=== PATIENT | male | born 1960 | race American Indian/Alaskan Native ===

== ENCOUNTER → 2018-11-13 | Outpatient (CLI) | payer MEDICARE, OTHER ==
--- NOTE | 2018-11-13 15:53 | US ---
EXAMINATION TYPE: US kidneys/renal and bladder DATE OF EXAM: 11/13/2018 COMPARISON: NONE CLINICAL HISTORY: N39.41 Urge incontinence N31.9 Neuromuscular.... pt wheelchair bound and scanned in wheelchair pt self catheterizes for voiding bladder EXAM MEASUREMENTS: Right Kidney: 10.4 x 4.5 x 5.0 cm Left Kidney: 10.9 x 4.7 x 4.3 cm Post Void Residual Volume: 0.6 mL Right Kidney: wnl Left Kidney: wnl Bladder: wnl Bilateral Jets seen: Yes Normal Post Void Residual: Yes pt self catheterizes for voiding bladder pt is in wheelchair There is no evidence for hydronephrosis at this point in time. No nephrolithiasis is seen. No elana s are identified. The urinary bladder is anechoic. Bilateral ureteral jets are seen. IMPRESSION: The urinary bladder completely empties after catheterization with no abnormal post void r esidual. No hydronephrosis of either kidney.
== END | disposition home or self-care (01) ==
LOC: RADUSWWP 14:56
PROVIDERS: ATTEND Urology
DX: N39.44 Nocturnal enuresis (principal)
CPT/HCPCS: 76770

== ENCOUNTER → 2020-01-06 | Outpatient (CLI) | payer MEDICARE, OTHER | END | disposition home or self-care (01) | LOC: RADUSWWP 12:04 | PROVIDERS: ATTEND Nurse Practitioner Family | DX: R22.41 Localized swelling, mass and lump, right lower limb (principal) | CPT/HCPCS: 93922 ==

== ENCOUNTER → 2020-04-05 | Outpatient (CLI) | payer MEDICARE, OTHER ==
--- NOTE | 2020-04-06 09:01 | CT ---
EXAMINATION TYPE: CT angio abd aorta w/Runoff DATE OF EXAM: 04/05/2020 COMPARISON: None HISTORY: Occlusion. Concern for right leg. CT DLP: 1055.3 mGycm CONTRAST: CTA thoracic and abdominal aorta with 3-D reconstruction is performed and with IV Contrast, patient i njected with 125 mL of Isovue 370. Contrast CTA of the abdominal aorta with runoff of the lower extremity arterial system was performed from the lung bases through the right ankle and foot and through the patient's left-sided above the k nee amputation stump. 3-D reconstruction imaging obtained at a separate workstation. ABDOMINAL AORTA: There is nonaneurysmal atheromatous change of the abdominal aorta. No evidence for s tenosis. Branch vessels including the SMA, celiac, renals and ANNEMARIE are patent. Iliac vessels: There is multifocal disease involving the bilateral common iliac arteries with stenosis of approximat steph 50%. The right external iliac artery also demonstrates diffuse multifocal disease with stenosis estimated at greater than 70% at its mid and distal portions. The right internal iliac artery is hicks nt. The left external iliac artery also demonstrates multifocal disease with near complete stenosis d istally at its junction with the left common femoral artery. Left internal iliac artery is patent. Re constitution is noted via the inferior epigastric arteries. Femoral arteries: Right common femoral and superficial femoral arteries demonstrate multifocal diseas e. There is high-grade stenosis involving the right common femoral artery just proximal to the profun da femoris artery. There is occlusion of the distal superficial femoral artery on the right just prox imal to the popliteal artery with arterial collaterals noted reconstituting arteries below the knee. There is severe multifocal disease involving the left common femoral artery and the visualized portio ns of the left superficial femoral artery up to the level of the [id number] amputation stump. Popliteal arteries: There is occlusion of the right popliteal artery. Below the knee arteries: The below the knee arteries including the peroneal as well as anterior poste rior tibial arteries are patent proximally. There is limited runoff distally. LIVER/GB- No significant abnormality is seen. PANCREAS- No significant abnormality is seen. SPLEEN- No significant abnormality is seen. ADRENALS- No significant abnormality is seen. KIDNEYS/BLADDER- No significant abnormality is seen. BOWEL- No Significant abnormality GENITAL ORGANS: No gross abnormality seen. LYMPH NODES- No greater than 1cm abdominal or pelvic lymph nodes are appreciated. OSSEOUS STRUCTURES- No significant abnormality is seen. OTHER- No significant abnormality is seen. IMPRESSION- 1. Hemodynamically significant stenosis involving the bilateral external iliac arteries with near com plete occlusion of the left external iliac artery. 2. Occlusion distal SFA with collateral reconstitution below the knee. 3. Severe multifocal disease involving the left common femoral artery and left superficial femoral ar alex up to the level of the patient's above the knee amputation stump.
== END | disposition home or self-care (01) ==
LOC: RADCTMAIN 13:28
PROVIDERS: ATTEND Surgery
DX: I74.5 Embolism and thrombosis of iliac artery (principal); I70.209 Unspecified atherosclerosis of native arteries of extremities, unspecified extremity; I77.89 Other specified disorders of arteries and arterioles; Z89.611 Acquired absence of right leg above knee
CPT/HCPCS: 75635; Q9967

== ENCOUNTER 2020-05-05 11:52 | Inpatient (IN) | payer MEDICARE, OTHER ==
[2020-05-05 13:57] LABS: Partial Thromboplastin Time 25.5 sec (22.0-30.0); Prothrombin Time 10.8 sec (9.0-12.0)
[2020-05-05 13:58] LABS: Appearance,Urine Cloudy (Clear); Bacteria,Urine Rare /hpf; Bilirubin,Urine 1+ (Negative); Blood,Urine Moderate (Negative); Color,Urine Yellow; Glucose,Urine (UA) Negative (Negative); Hyaline Casts,Urine 92 /lpf (0-2); Ketones,Urine Negative (Negative); Leukocyte Esterase,Urine Negative (Negative); Mucus,Urine Many /hpf; Nitrite,Urine Negative (Negative); Protein,Urine 1+ (Negative); RBC,Urine 36 /hpf (0-5); Specific Gravity,Urine 1.026 (1.001-1.035); Sperm,Urine Occasional /hpf; Squamous Epithelial Cell,Urine 3 /hpf (0-4); WBC,Urine 3 /hpf (0-5)
[2020-05-05 14:01] LABS: Albumin 3.6 g/dL (3.5-5.0); Calcium 8.5 mg/dL (8.4-10.2); Potassium 3.7 mmol/L (3.5-5.1); Total Bilirubin 0.8 mg/dL (0.2-1.3); Total Protein 7.3 g/dL (6.3-8.2)
[2020-05-05 14:02] LABS: Basophils % (A) 0 %; Eosinophils # (A) 0.1 k/uL (0-0.7); Eosinophils % (A) 1 %; HCT 36.5 % (39.0-53.0); HGB 11.9 gm/dL (13.0-17.5); Lymphocytes # (A) 1.3 k/uL (1.0-4.8); Lymphocytes % (A) 9 %; MCH 30.5 pg (25.0-35.0); MCHC 32.7 g/dL (31.0-37.0); MCV 93.5 fL (80.0-100.0); Mean Platelet Volume 8.6; Monocytes # (A) 0.5 k/uL (0-1.0); Monocytes % (A) 4 %; Neutrophils # (A) 12.7 k/uL (1.3-7.7); Neutrophils % (A) 86 %; Platelet Count 361 k/uL (150-450); RDW 13.8 % (11.5-15.5); WBC 14.8 k/uL (3.8-10.6)
--- NOTE | 2020-05-05 14:16 | XR ---
EXAMINATION TYPE: XR knee complete RT DATE OF EXAM: 05/05/2020 COMPARISON: NONE HISTORY: Pain TECHNIQUE: Three views are submitted. FINDINGS: There is a displaced intra-articular fracture extending from the tibial plateau into the diaphysis of the tibia. There is a displaced fracture of the fibular head. Severe diffuse osteopenia noted. Vascu lar calcifications noted. A large lipohemarthrosis of the suprapatellar bursa noted. Arthropathy of t he patellofemoral joint. IMPRESSION: 1. Intra-articular displaced fracture of the proximal tibia extending from the tibial plateau into th e proximal diaphysis. 2. Displaced fibular head fracture.
[2020-05-05 14:30] LABS: C Reactive Protein 309.3 mg/L (<10.0)
[2020-05-05] MEDS ORDERED: AMPICILLIN-SULBACTAM 3 GM in SODIUM CHLORIDE 0.9% 100 ML IVPB STA (14:30)
[2020-05-05] MEDS ORDERED: SODIUM CHLORIDE 0.9% 1,000 ML IV ONE (14:30)
[2020-05-05] MEDS ORDERED: VANCOMYCIN IV PER PHARMACY 1 EACH MISC MISCELLANE PRN (14:31)
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
[2020-05-05] MEDS ORDERED: VANCOMYCIN 1,500 MG in SODIUM CHLORIDE 0.9% 250 ML IVPB ONE (14:45)
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
[2020-05-05 14:58] LABS: Erythrocyte Sedimentation Rate 104 mm/hr (0-15)
[2020-05-05] MEDS ORDERED: NALOXONE 0.4 MG/ML 1 ML VIAL IV PRN (15:09)
[2020-05-05] MEDS: SODIUM CHLORIDE 0.9% 1,000 ML IV SCH (16:51)
[2020-05-05] MEDS: HYDROcodone/APAP 10-325MG 1 EACH TAB PO PRN (18:22)
[2020-05-05] MEDS: BACLOFEN 10 MG TAB PO SCH ×2 (18:23→21:55)
[2020-05-05] MEDS: diazePAM 5 MG TAB PO SCH ×2 (18:23→21:55)
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
--- NOTE | 2020-05-05 19:15 | P.PCN ---
Date of Procedure: 05/05/20 Procedure(s) Performed: PREOPERATIVE DIAGNOSIS: Right gluteal decubitus ulcer POSTOPERATIVE DIAGNOSIS: Same PROCEDURE: Debridement right gluteal decubitus ulcer SURGEON: Merlin EBL: 5 mL ANESTHESIA: Topical Hurricaine COMPLICATIONS: None OPERATIVE PROCEDURE: Patient kept in the room for the procedure. He was placed in the left decubitus position. The right gluteal wound was debrided in an excisional manner sharply with a scalpel. Both subcutaneous fat and muscle was debrided. Some of the fascia overlying the friable bone was also debrided. Wound size did not change significantly. Remains 4 x 4 centimeters. Wound packed with sterile 4 x 4. DISPOSITION: Stable
[2020-05-05] MEDS: METOPROLOL TARTRATE 25 MG TAB PO SCH (21:55)
[2020-05-05] MEDS: tiZANidine 4 MG TAB PO SCH (22:18)
[2020-05-06] MEDS: SODIUM CHLORIDE 0.9% 1,000 ML IV SCH ×2 (04:25→11:41)
[2020-05-06 08:43] LABS: Basophils # (A) 0.1 k/uL (0-0.2); Basophils % (A) 1 %; Eosinophils # (A) 0.2 k/uL (0-0.7); Eosinophils % (A) 2 %; HCT 34.3 % (39.0-53.0); HGB 10.9 gm/dL (13.0-17.5); Lymphocytes # (A) 1.1 k/uL (1.0-4.8); Lymphocytes % (A) 9 %; MCH 30.6 pg (25.0-35.0); MCHC 31.7 g/dL (31.0-37.0); MCV 96.5 fL (80.0-100.0); Mean Platelet Volume 8.1; Monocytes # (A) 0.4 k/uL (0-1.0); Monocytes % (A) 4 %; Neutrophils % (A) 84 %; Platelet Count 311 k/uL (150-450); RBC 3.55 m/uL (4.30-5.90); WBC 11.8 k/uL (3.8-10.6)
[2020-05-06] MEDS ORDERED: VANCOMYCIN 1,500 MG in SODIUM CHLORIDE 0.9% 250 ML IVPB SCH (09:00)
[2020-05-06] MEDS ORDERED: ERGOCALCIFEROL 1,250 MCG (50,000 IU) CAPSULE PO SCH (09:00)
[2020-05-06] MEDS: ASPIRIN 81 MG PO SCH (09:22)
[2020-05-06] MEDS: diazePAM 5 MG TAB PO SCH ×4 (09:23→21:22)
[2020-05-06] MEDS: tiZANidine 4 MG TAB PO SCH ×2 (09:23→21:23)
[2020-05-06] MEDS: ATORVASTATIN 40 MG TAB PO SCH (09:25)
[2020-05-06] MEDS: HYDROcodone/APAP 10-325MG 1 EACH TAB PO PRN (09:30)
[2020-05-06] MEDS: AMPICILLIN-SULBACTAM 3 GM in SODIUM CHLORIDE 0.9% 100 ML IVPB SCH ×3 (09:31→23:36)
[2020-05-06] MEDS: METOPROLOL TARTRATE 25 MG TAB PO SCH ×2 (09:32→21:24)
[2020-05-06] MEDS: lisinopriL 10 MG TAB PO SCH (09:32)
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
[2020-05-06 11:41] LABS: Anion Gap 12.2 mmol/L (4.00-12.00); BUN/Creat Ratio 24.67 Ratio (12.00-20.00); Calcium 7.8 mg/dL (8.7-10.3); Carbon Dioxide 21.8 mmol/L (21.6-31.8); Non-African American GFR(CKD) 50.9 (60.0-200.0); Potassium 3.8 mmol/L (3.5-5.5)
[2020-05-06] MEDS: BACLOFEN 10 MG TAB PO SCH ×4 (11:44→21:24)
--- NOTE | 2020-05-06 12:47 | P.PN ---
<[email or web address] - Last Filed: 05/06/20 12:40> Subjective Progress Note Date: 05/06/20 CHIEF COMPLAINT: Right gluteal decubitus ulcer HISTORY OF PRESENT ILLNESS: Patient is status post debridement of right gluteal decubitus ulcer at bedside. Wound care nurse practitioner is following. Wound care service did recommend wound VAC and patient declined. Patient denies any pain. Patient did have a temp of 100.6 yesterday evening. Temperature currently 99.4. WBC has decreased from 14.8-11.8 PHYSICAL EXAM: VITAL SIGNS: Reviewed. GENERAL: Well-developed in no acute distress. HEENT: No sclera icterus. Extraocular movements grossly intact. Moist buccal mucosa. Head is atraumatic, normocephalic. ABDOMEN: Soft. Nondistended. Nontender. NEUROLOGIC: Alert and oriented. Cranial nerves II through XII grossly intact. Extremities: Right decubitus ulcer area around the ulcer shows no evidence of erythema. The ulcer has been debrided area is packed with gauze that is saturated with blood. Surrounding dressing is saturated with blood and being changed. ASSESSMENT: 1. Right gluteal decubitus ulcer status post debridement at bedside PLAN: -Continue wound care -Continue antibiotics -Continue supportive care Physician Multifocal Lens Inspector note has been reviewed by physician. Signing provider agrees with the documented findings, assessment, and plan of care. Objective - Vital Signs Vital signs: Vital Signs Temp 99.4 F 05/06/20 01:11 Pulse 93 05/06/20 11:30 Resp 20 05/06/20 01:11 BP 107/57 05/06/20 11:30 Pulse Ox 96 05/06/20 01:11 Intake & Output 05/05/20 05/06/20 05/06/20 18:59 06:59 18:59 Intake Total 600 2750 Balance 600 2750 Weight 77.111 kg Intake: Intake, IV Titration 1200 Amount Sodium Chloride 0.9% 1, 1200 000 ml @ 100 mls/hr IV . Q10H ANA Rx#:[id number] Oral 600 1550 Other: Voiding Method Self-Catheterization # Voids 1 - Labs CBC & Chem 7: 05/06/20 08:07 05/06/20 08:07 Labs: Abnormal Lab Results - Last 24 Hours (Table) 05/05/20 05/05/20 05/05/20 Range/Units 13:34 13:34 13:34 WBC 14.8 H (3.8-10.6) k/uL RBC 3.90 L (4.30-5.90) m/uL Hgb 11.9 L (13.0-17.5) gm/dL Hct 36.5 L (39.0-53.0) % Neutrophils # 12.7 H (1.3-7.7) k/uL ESR 104 H (0-15) mm/hr Anion Gap (4.00-12.00) mmol/L BUN 32 H (9-20) mg/dL Creatinine 1.84 H (0.66-1.25) mg/dL Est GFR (CKD-EPI)AfAm (60.0-200.0) Est GFR (CKD-EPI)NonAf (60.0-200.0) BUN/Creatinine Ratio (12.00-20.00) Ratio Glucose 121 H (74-99) mg/dL Calcium (8.7-10.3) mg/dL C-Reactive Protein 309.3 H (<10.0) mg/L Urine Protein 1+ H (Negative) Urine Blood Moderate H (Negative) Urine Bilirubin 1+ H (Negative) Urine RBC 36 H (0-5) /hpf Urine Bacteria Rare H (None) /hpf Hyaline Casts 92 H (0-2) /lpf Urine Mucus Many H (None) /hpf Urine Sperm Occasional H (None) /hpf 05/06/20 05/06/20 Range/Units 08:07 08:07 WBC 11.8 H (3.8-10.6) k/uL RBC 3.55 L (4.30-5.90) m/uL Hgb 10.9 L (13.0-17.5) gm/dL Hct 34.3 L (39.0-53.0) % Neutrophils # 10.0 H (1.3-7.7) k/uL ESR (0-15) mm/hr Anion Gap 12.20 H (4.00-12.00) mmol/L BUN 37.0 H (9-20) mg/dL Creatinine (0.66-1.25) mg/dL Est GFR (CKD-EPI)AfAm 59.0 L (60.0-200.0) Est GFR (CKD-EPI)NonAf 50.9 L (60.0-200.0) BUN/Creatinine Ratio 24.67 H (12.00-20.00) Ratio Glucose 112 H (74-99) mg/dL Calcium 7.8 L (8.7-10.3) mg/dL C-Reactive Protein (<10.0) mg/L Urine Protein (Negative) Urine Blood (Negative) Urine Bilirubin (Negative) Urine RBC (0-5) /hpf Urine Bacteria (None) /hpf Hyaline Casts (0-2) /lpf Urine Mucus (None) /hpf Urine Sperm (None) /hpf <Matthew Boyer - Last Filed: 05/06/20 13:56> Subjective As above. Patient has no new complaints. White blood cell count is improved. He is afebrile. Continue local wound care. We'll follow. Objective - Vital Signs Vital signs: Vital Signs Temp 98.6 F 05/06/20 12:30 Pulse 92 05/06/20 12:36 Resp 14 05/06/20 12:36 BP 98/63 05/06/20 12:30 Pulse Ox 99 05/06/20 12:30 Intake & Output 05/05/20 05/06/20 05/06/20 18:59 06:59 18:59 Intake Total 600 2750 Balance 600 2750 Weight 77.111 kg 77.111 kg Intake: Intake, IV Titration 1200 Amount Sodium Chloride 0.9% 1, 1200 000 ml @ 100 mls/hr IV . Q10H ANA Rx#:[id number] Oral 600 1550 Other: Voiding Method Self-Catheterization Self-Catheterization # Voids 1 - Labs CBC & Chem 7: 05/06/20 08:07 05/06/20 08:07 Labs: Abnormal Lab Results - Last 24 Hours (Table) 05/05/20 05/05/20 05/05/20 Range/Units 13:34 13:34 13:34 WBC 14.8 H (3.8-10.6) k/uL RBC 3.90 L (4.30-5.90) m/uL Hgb 11.9 L (13.0-17.5) gm/dL Hct 36.5 L (39.0-53.0) % Neutrophils # 12.7 H (1.3-7.7) k/uL ESR 104 H (0-15) mm/hr Anion Gap (4.00-12.00) mmol/L BUN 32 H (9-20) mg/dL Creatinine 1.84 H (0.66-1.25) mg/dL Est GFR (CKD-EPI)AfAm (60.0-200.0) Est GFR (CKD-EPI)NonAf (60.0-200.0) BUN/Creatinine Ratio (12.00-20.00) Ratio Glucose 121 H (74-99) mg/dL Calcium (8.7-10.3) mg/dL C-Reactive Protein 309.3 H (<10.0) mg/L Urine Protein 1+ H (Negative) Urine Blood Moderate H (Negative) Urine Bilirubin 1+ H (Negative) Urine RBC 36 H (0-5) /hpf Urine Bacteria Rare H (None) /hpf Hyaline Casts 92 H (0-2) /lpf Urine Mucus Many H (None) /hpf Urine Sperm Occasional H (None) /hpf 05/06/20 05/06/20 Range/Units 08:07 08:07 WBC 11.8 H (3.8-10.6) k/uL RBC 3.55 L (4.30-5.90) m/uL Hgb 10.9 L (13.0-17.5) gm/dL Hct 34.3 L (39.0-53.0) % Neutrophils # 10.0 H (1.3-7.7) k/uL ESR (0-15) mm/hr Anion Gap 12.20 H (4.00-12.00) mmol/L BUN 37.0 H (9-20) mg/dL Creatinine (0.66-1.25) mg/dL Est GFR (CKD-EPI)AfAm 59.0 L (60.0-200.0) Est GFR (CKD-EPI)NonAf 50.9 L (60.0-200.0) BUN/Creatinine Ratio 24.67 H (12.00-20.00) Ratio Glucose 112 H (74-99) mg/dL Calcium 7.8 L (8.7-10.3) mg/dL C-Reactive Protein (<10.0) mg/L Urine Protein (Negative) Urine Blood (Negative) Urine Bilirubin (Negative) Urine RBC (0-5) /hpf Urine Bacteria (None) /hpf Hyaline Casts (0-2) /lpf Urine Mucus (None) /hpf Urine Sperm (None) /hpf Assessment and Plan (1) Wound of right buttock Current Visit: Yes Status: Acute Code(s): S31.819A - UNSPECIFIED OPEN WOUND OF RIGHT BUTTOCK, INITIAL ENCOUNTER SNOMED Code(s): 074540385
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
[2020-05-06 13:56] VITALS: BMI 21.8
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
[2020-05-07] MEDS: IBUPROFEN 600 MG TAB PO PRN (00:37)
[2020-05-07] MEDS: VANCOMYCIN 1,500 MG in SODIUM CHLORIDE 0.9% 250 ML IVPB SCH ×2 (00:38→16:50)
[2020-05-07] MEDS: SODIUM CHLORIDE 0.9% 1,000 ML IV SCH ×3 (00:38→20:52)
[2020-05-07 05:44] LABS: Glucose,Whole Blood 127 mg/dL (75-99)
[2020-05-07] MEDS: HYDROcodone/APAP 10-325MG 1 EACH TAB PO PRN ×2 (06:08→21:13)
[2020-05-07] MEDS: ASPIRIN 81 MG PO SCH (07:29)
[2020-05-07] MEDS: ATORVASTATIN 40 MG TAB PO SCH (07:29)
[2020-05-07] MEDS: AMPICILLIN-SULBACTAM 3 GM in SODIUM CHLORIDE 0.9% 100 ML IVPB SCH ×2 (07:30→15:47)
[2020-05-07] MEDS: diazePAM 5 MG TAB PO SCH ×5 (07:30→20:57)
[2020-05-07] MEDS: BACLOFEN 10 MG TAB PO SCH ×4 (07:30→21:01)
[2020-05-07] MEDS: METOPROLOL TARTRATE 25 MG TAB PO SCH ×2 (07:32→20:48)
[2020-05-07] MEDS: lisinopriL 10 MG TAB PO SCH (07:32)
[2020-05-07] MEDS: tiZANidine 4 MG TAB PO SCH ×2 (07:32→20:57)
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
--- NOTE | 2020-05-07 11:19 | P.PN ---
Subjective Progress Note Date: 05/07/20 Principal diagnosis: Buttock wound Patient had fevers last night 101.9. No new discomforts or symptoms however. No shortness of breath. Wound culture showing staph aureus. Objective - Vital Signs Vital signs: Vital Signs Temp 97.3 F L 05/07/20 05:25 Pulse 72 05/07/20 05:25 Resp 16 05/07/20 08:00 BP 101/64 05/07/20 05:25 Pulse Ox 98 05/07/20 05:25 Intake & Output 05/06/20 05/07/20 05/07/20 18:59 06:59 18:59 Intake Total 600 Output Total 600 Balance 600 -600 Weight 77.111 kg Intake: Oral 600 Output: Urine 600 Other: Voiding Method Self-Catheterization Self-Catheterization # Voids 3 1 1 - Exam Right gluteal wound clean, decreased volume of necrotic tissue noted, no erythema or significant drainage - Labs CBC & Chem 7: 05/06/20 08:07 05/06/20 08:07 Labs: Abnormal Lab Results - Last 24 Hours (Table) 05/06/20 05/07/20 Range/Units 08:07 05:39 Anion Gap 12.20 H (4.00-12.00) mmol/L BUN 37.0 H (9.0-27.0) mg/dL Est GFR (CKD-EPI)AfAm 59.0 L (60.0-200.0) Est GFR (CKD-EPI)NonAf 50.9 L (60.0-200.0) BUN/Creatinine Ratio 24.67 H (12.00-20.00) Ratio Glucose 112 H (70-110) mg/dL POC Glucose (mg/dL) 127 H (75-99) mg/dL Calcium 7.8 L (8.7-10.3) mg/dL Microbiology - Last 24 Hours (Table) 05/05/20 13:34 Blood Culture - Preliminary Blood No Growth after 24 hours Assessment and Plan (1) Wound of right buttock Narrative/Plan: Began Aquacel silver dressing changes to the buttock at this time. Continue offloading. Continue IV antibiotics. Current Visit: Yes Status: Acute Code(s): S31.819A - UNSPECIFIED OPEN WOUND OF RIGHT BUTTOCK, INITIAL ENCOUNTER SNOMED Code(s): 370294131
[2020-05-07 11:46] LABS: African American GFR (CKD) 85.9 (60.0-200.0); Non-African American GFR(CKD) 74.1 (60.0-200.0)
[2020-05-07] MEDS ORDERED: diphenhydrAMINE 25 MG CAP PO PRN (22:25)
--- NOTE | 2020-05-07 23:23 | P.PN ---
Subjective Records: Jaziel Taylor is a 59 yo M with PMH of paraplegia, previous history of sacral wound with flap reconstruction, who presented to the ED with worsening sacral wound. He states he is numb from his chest down, recently had a fall from his wheelchair where he landed on his sacrum and developed an injury/sacral wound. He also noted swelling of his R knee at that time. Pt states his sacral wound has drainged more and developed foul smell over the past week. On presentation vitals stable, WBC 14.8k, Cr 1.84, CRP 310. XR showing erosion of coccyx and fluid collection. 05/07/2020 Patient is awake and alert, he knows in the hospital and he notes [facility]. He is also oriented to time and person. He knows why the h ospital for his right ankle leg fracture after he fell from his wheelchair and also for his infected sacral pressure ulcer which he states that he had it for 5 years. His been paraplegic for many years, he was sensation from the middle chest down 11-13 years ago. Patient uses a wheelchair. He was a little bit sad for his infection and emotional support is provided for him and he feels much better. He denies depression or suicidal ideation. He had low-grade temperature yesterday of 100.7. Also leukocytosis of 11.8, creatinine is improving to 1.1. CT of the abdomen and pelvis showing suspicious of osteomyelitis of the sacral bones Patient currently on IV vancomycin and unasyn we will consult infectious disease team Orthopedic team R following the case for right knee hemarthrosis status post aspiration of bloody secretion. And fracture of the right fibula and tibia. As per the recommendation he is not a surgical candidate and treatment conservatively with closed reduction and weekly x-ray Review of systems CONSTITUTIONAL: No fever, no malaise, no fatigue. HEENT: No recent visual problems or hearing problems. Denied any sore throat. CARDIOVASCULAR: No orthopnea, PND, no palpitations, no syncope. PULMONARY: No shortness of breath, no cough, no hemoptysis. GASTROINTESTINAL: No diarrhea, no nausea, no vomiting, no abdominal pain. Normoactive bowel sounds. NEUROLOGICAL: No headaches, no weakness, no numbness. HEMATOLOGICAL: Denies any bleeding or petechiae. Active Medications Generic Name Dose Route Start Last Admin Trade Name Freq PRN Reason Stop Dose Admin Hydrocodone Bitart/Acetaminophen 1 each 05/05/20 15:14 05/07/20 21:13 Hydrocodone/Apap 10-325mg 1 Each Tab PO 0.5 each Q6H PRN Administration Pain Aspirin 81 mg 05/06/20 09:00 05/07/20 07:29 Aspirin 81 Mg PO 81 mg DAILY ANA Administration Atorvastatin Calcium 40 mg 05/06/20 09:00 05/07/20 07:29 Atorvastatin 40 Mg Tab PO 40 mg DAILY ANA Administration Baclofen 20 mg 05/05/20 18:00 05/07/20 21:01 Baclofen 10 Mg Tab PO Not Given QID ANA Diazepam 10 mg 05/05/20 18:00 05/07/20 20:57 Diazepam 5 Mg Tab PO Not Given QID ANA Diphenhydramine HCl 25 mg 05/07/20 22:25 05/07/20 23:11 Diphenhydramine 25 Mg Cap PO 25 mg QID PRN Administration Allergy Symptoms Ergocalciferol 1,250 mcg 05/06/20 09:00 05/06/20 11:38 Ergocalciferol 1,250 Mcg (50,000 Iu) Capsule PO 1,250 mcg FR ANA Administration Heparin Sodium (Porcine) 5,000 unit 05/08/20 09:00 Heparin Sodium,Porcine 5,000 Unit/Ml 1 Ml Vial SQ Q12HR ANA Sodium Chloride 1,000 mls @ 100 mls/hr 05/05/20 15:15 05/07/20 20:52 Saline 0.9% IV 100 mls/hr .Q10H ANA Administration Ampicillin Sodium/Sulbactam 100 mls @ 200 mls/hr 05/06/20 08:30 05/07/20 15:47 Sodium 3 gm/ Sodium Chloride IVPB 200 mls/hr Q8HR ANA Administration Vancomycin HCl 1,500 mg/ 250 mls @ 125 mls/hr 05/07/20 00:00 05/07/20 16:50 Sodium Chloride IVPB 125 mls/hr Q16H ANA Administration Ibuprofen 600 mg 05/06/20 23:49 05/07/20 00:37 Ibuprofen 600 Mg Tab PO 600 mg QID PRN Administration Fever Lisinopril 10 mg 05/06/20 09:00 05/07/20 07:32 Lisinopril 10 Mg Tab PO Not Given QAM ANA Metoprolol Tartrate 25 mg 05/05/20 21:00 05/07/20 20:48 Metoprolol Tartrate 25 Mg Tab PO 25 mg BID ANA Administration Miscellaneous Information 0 each 05/08/20 07:00 Vancomycin Trough Due 1 Each Misc MISCELLANE 05/08/20 07:01 DIRECTED ONE Naloxone HCl 0.2 mg 05/05/20 15:09 Naloxone 0.4 Mg/Ml 1 Ml Vial IV Q2M PRN Opioid Reversal Tizanidine HCl 1 mg 05/05/20 21:00 05/07/20 20:57 Tizanidine 4 Mg Tab PO 1 mg BID ANA Administration Objective - Vital Signs Vital signs: Vital Signs Temp 97.3 F L 05/07/20 05:25 Pulse 72 05/07/20 05:25 Resp 15 05/07/20 05:25 BP 101/64 05/07/20 05:25 Pulse Ox 98 05/07/20 05:25 Intake & Output 05/06/20 05/07/20 05/07/20 18:59 06:59 18:59 Intake Total 600 Output Total 600 Balance 600 -600 Weight 77.111 kg Intake: Oral 600 Output: Urine 600 Other: Voiding Method Self-Catheterization # Voids 3 1 1 - Exam GENERAL: The patient is alert and oriented x3, not in any acute distress. Well developed, well nourished. HEENT: Pupils are round and equally reacting to light. EOMI. No scleral icterus. No conjunctival pallor. Normocephalic, atraumatic. No pharyngeal erythema. No thyromegaly. CARDIOVASCULAR: S1 and S2 present. No murmurs, rubs, or gallops. PULMONARY: Chest is clear to auscultation, no wheezing or crackles. ABDOMEN: Soft, nontender, nondistended, normoactive bowel sounds. No palpable organomegaly. -MUSCULOSKELETAL: No joint swelling or deformity. Sacral pressure ulcer, stage IV -EXTREMITIES: No cyanosis, clubbing, or pedal edema. Right leg in Cast NEUROLOGICAL: Gross neurological examination did not reveal any focal deficits. SKIN: No rashes. no petechiae. - Labs CBC & Chem 7: 05/06/20 08:07 05/07/20 06:05 Labs: Abnormal Lab Results - Last 24 Hours (Table) 05/06/20 05/07/20 Range/Units 08:07 05:39 Anion Gap 12.20 H (4.00-12.00) mmol/L BUN 37.0 H (9.0-27.0) mg/dL Est GFR (CKD-EPI)AfAm 59.0 L (60.0-200.0) Est GFR (CKD-EPI)NonAf 50.9 L (60.0-200.0) BUN/Creatinine Ratio 24.67 H (12.00-20.00) Ratio Glucose 112 H (70-110) mg/dL POC Glucose (mg/dL) 127 H (75-99) mg/dL Calcium 7.8 L (8.7-10.3) mg/dL Microbiology - Last 24 Hours (Table) 05/05/20 13:34 Blood Culture - Preliminary Blood No Growth after 24 hours Assessment and Plan Assessment: Stage IV sacral pressure ulcer with underlying osteomyelitis is suspected Sepsis secondary to above with fever and leukocytosis Right tibial/fibula fracture secondary to fall from wheelchair hemarthrosis of the right knee status post aspiration by orthopedic team Chronic paraplegia Hypertension Peripheral vascular disease Hyperlipidemia Left AKA Plan: This is a pleasant 59 years old male who presents with right ankle fracture and sacral pressure ulcer and osteomyelitis. Continue with Unasyn and IV vancomycin and monitor creatinine closely. Follow-up recommendation by infectious disease team were consulted for antibiotic management. Check ESR and C-reactive protein in the morning. Orthopedic team on the case and help in the management of right ankle fracture. Surgical team evaluated the patient for his pressure ulcer Labs and medication were reviewed.. Continue same treatment. Continue with symptomatic treatment. Resume home medication. Monitor lytes and vitals. DVT and GI prophylaxis. Further recommendationsas per clinical course of the patient DVT prophylaxis: Subcutaneous heparin GI Prophylaxis: Pepcid PT/OT: Pending
[2020-05-08] MEDS: AMPICILLIN-SULBACTAM 3 GM in SODIUM CHLORIDE 0.9% 100 ML IVPB SCH ×3 (00:59→16:14)
[2020-05-08] MEDS: SODIUM CHLORIDE 0.9% 1,000 ML IV SCH ×2 (06:25→14:30)
[2020-05-08 06:39] LABS: Basophils # (A) 0.1 k/uL (0-0.2); Basophils % (A) 1 %; Eosinophils # (A) 0.1 k/uL (0-0.7); Eosinophils % (A) 1 %; HCT 30.2 % (39.0-53.0); HGB 9.6 gm/dL (13.0-17.5); Lymphocytes # (A) 1.1 k/uL (1.0-4.8); Lymphocytes % (A) 10 %; MCH 29.9 pg (25.0-35.0); MCHC 31.8 g/dL (31.0-37.0); MCV 94.1 fL (80.0-100.0); Monocytes # (A) 0.4 k/uL (0-1.0); Monocytes % (A) 4 %; Neutrophils # (A) 8.6 k/uL (1.3-7.7); Neutrophils % (A) 83 %; Platelet Count 376 k/uL (150-450); RBC 3.21 m/uL (4.30-5.90); RDW 14.1 % (11.5-15.5); WBC 10.4 k/uL (3.8-10.6)
[2020-05-08] MEDS ORDERED: VANCOMYCIN TROUGH DUE 1 EACH MISC MISCELLANE ONE (07:00)
[2020-05-08 09:13] LABS: African American GFR (CKD) 109.5 (60.0-200.0); Anion Gap 8.7 mmol/L (4.00-12.00); BUN/Creat Ratio 13.33 Ratio (12.00-20.00); Calcium 7.7 mg/dL (8.7-10.3); Carbon Dioxide 24.3 mmol/L (21.6-31.8); Non-African American GFR(CKD) 94.5 (60.0-200.0); Potassium 3.8 mmol/L (3.5-5.5)
[2020-05-08] MEDS: METOPROLOL TARTRATE 25 MG TAB PO SCH ×2 (09:16→21:29)
[2020-05-08] MEDS: BACLOFEN 10 MG TAB PO SCH ×4 (09:16→21:29)
[2020-05-08] MEDS: ATORVASTATIN 40 MG TAB PO SCH (09:16)
[2020-05-08] MEDS: ASPIRIN 81 MG PO SCH (09:16)
[2020-05-08] MEDS: lisinopriL 10 MG TAB PO SCH (09:17)
[2020-05-08] MEDS: FAMOTIDINE 20 MG/2 ML VIAL IV SCH ×2 (09:17→22:09)
[2020-05-08] MEDS: HEPARIN SODIUM,PORCINE 5,000 UNIT/ML 1 ML VIAL SQ SCH ×2 (09:18→21:29)
[2020-05-08] MEDS: tiZANidine 4 MG TAB PO SCH ×2 (09:19→21:29)
[2020-05-08] MEDS: diazePAM 5 MG TAB PO SCH ×4 (09:22→21:29)
--- NOTE | 2020-05-08 09:51 | P.PN ---
Subjective Records: Jaziel Taylor is a 59 yo M with PMH of paraplegia, previous history of sacral wound with flap reconstruction, who presented to the ED with worsening sacral wound. He states he is numb from his chest down, recently had a fall from his wheelchair where he landed on his sacrum and developed an injury/sacral wound. He also noted swelling of his R knee at that time. Pt states his sacral wound has drainged more and developed foul smell over the past week. On presentation vitals stable, WBC 14.8k, Cr 1.84, CRP 310. XR showing erosion of coccyx and fluid collection. 05/07/2020 Patient is awake and alert, he knows in the hospital and he notes [facility]. He is also oriented to time and person. He knows why the h ospital for his right ankle leg fracture after he fell from his wheelchair and also for his infected sacral pressure ulcer which he states that he had it for 5 years. His been paraplegic for many years, he was sensation from the [facility] down 11-13 years ago. Patient uses a wheelchair. He was a little bit sad for his infection and emotional support is provided for him and he feels much better. He denies depression or suicidal ideation. He had low-grade temperature yesterday of 100.7. Also leukocytosis of 11.8, creatinine is improving to 1.1. CT of the abdomen and pelvis showing suspicious of osteomyelitis of the sacral bones Patient currently on IV vancomycin and unasyn we will consult infectious disease team Orthopedic team R following the case for right knee hemarthrosis status post aspiration of bloody secretion. And fracture of the right fibula and tibia. As per the recommendation he is not a surgical candidate and treatment conservatively with closed reduction and weekly x-ray 05/08/2020 Patient is with a right leg fracture after he fell from his wheelchair also he h as stage IV sacral decubitus ulcer with evidence of osteomyelitis, orthopedic team recommended conservative medical management as he is not a surgical candidate with being wheelchair-bound and status post left AKA. His blood pressure is slightly elevated 160/78. Creatinine is back to normal, I will Be decrease the rate from 100 down to 40 mL per hour He is covered with Unasyn and IV vancomycin, infectious disease team was consulted. He had low-grade temperature of 99.8 today. WBC is back to normal at 10.48, results of CBC and BMP is unremarkable. Objective - Vital Signs Vital signs: Vital Signs Temp 98.1 F 05/08/20 08:59 Pulse 90 05/08/20 08:59 Resp 16 05/08/20 08:59 BP 160/78 05/08/20 08:59 Pulse Ox 97 05/08/20 08:59 Intake & Output 05/07/20 05/08/20 05/08/20 18:59 06:59 18:59 Intake Total 900 Balance 900 Intake: Intake, IV Titration 900 Amount Ampicillin-Sulbactam 3 gm 100 In Sodium Chloride 0.9% 100 ml @ 200 mls/hr IVPB Q8HR ANA Rx#:[id number] Sodium Chloride 0.9% 1, 800 000 ml @ 100 mls/hr IV . Q10H ANA Rx#:[id number] Other: Voiding Method Self-Catheterization Self-Catheterization # Voids 1 1 - Exam GENERAL: The patient is alert and oriented x3, not in any acute distress. Well developed, well nourished. HEENT: Pupils are round and equally reacting to light. EOMI. No scleral icterus. No conjunctival pallor. Normocephalic, atraumatic. No pharyngeal erythema. No thyromegaly. CARDIOVASCULAR: S1 and S2 present. No murmurs, rubs, or gallops. PULMONARY: Chest is clear to auscultation, no wheezing or crackles. ABDOMEN: Soft, nontender, nondistended, normoactive bowel sounds. No palpable organomegaly. -MUSCULOSKELETAL: No joint swelling or deformity. Sacral pressure ulcer, stage IV -EXTREMITIES: No cyanosis, clubbing, or pedal edema. Right leg in Cast NEUROLOGICAL: Gross neurological examination did not reveal any focal deficits. SKIN: No rashes. no petechiae. - Labs CBC & Chem 7: 05/08/20 06:14 05/08/20 06:14 Labs: Abnormal Lab Results - Last 24 Hours (Table) 05/08/20 05/08/20 Range/Units 06:14 06:14 RBC 3.21 L (4.30-5.90) m/uL Hgb 9.6 L (13.0-17.5) gm/dL Hct 30.2 L (39.0-53.0) % Neutrophils # 8.6 H (1.3-7.7) k/uL Glucose 116 H (70-110) mg/dL Calcium 7.7 L (8.7-10.3) mg/dL Microbiology - Last 24 Hours (Table) 05/05/20 13:34 Blood Culture - Preliminary Blood No Growth after 48 hours Assessment and Plan Assessment: Stage IV sacral pressure ulcer with underlying osteomyelitis is suspected Sepsis secondary to above with fever and leukocytosis Right tibial/fibula fracture secondary to fall from wheelchair hemarthrosis of the right knee status post aspiration by orthopedic team Chronic paraplegia Hypertension Peripheral vascular disease Hyperlipidemia Left AKA Plan: This is a pleasant 59 years old male who presents with right ankle fracture and sacral pressure ulcer and osteomyelitis. Continue with Unasyn and IV vancomycin and monitor creatinine closely. Follow-up recommendation by infectious disease team were consulted for antibiotic management. Check ESR and C-reactive protein in the morning. Orthopedic team on the case and help in the management of right ankle fracture. Surgical team evaluated the patient for his pressure ulcer Labs and medication were reviewed.. Continue same treatment. Continue with symptomatic treatment. Resume home medication. Monitor lytes and vitals. DVT and GI prophylaxis. Further recommendationsas per clinical course of the patient DVT prophylaxis: Subcutaneous heparin GI Prophylaxis: Pepcid PT/OT: Pending
--- NOTE | 2020-05-08 11:13 | P.PN ---
Subjective Progress Note Date: 05/08/20 This is a 59-year-old male with a history of T8 paraplegia and [id number] amputation of left leg. Orthopedics is following for a right tibial plateau fracture. Patient denies any new complaints today. Objective - Vital Signs Vital signs: Vital Signs Temp 98.1 F 05/08/20 08:59 Pulse 90 05/08/20 08:59 Resp 16 05/08/20 08:59 BP 160/78 05/08/20 08:59 Pulse Ox 97 05/08/20 08:59 Intake & Output 05/07/20 05/08/20 05/08/20 18:59 06:59 18:59 Intake Total 900 Balance 900 Intake: Intake, IV Titration 900 Amount Ampicillin-Sulbactam 3 gm 100 In Sodium Chloride 0.9% 100 ml @ 200 mls/hr IVPB Q8HR ANA Rx#:[id number] Sodium Chloride 0.9% 1, 800 000 ml @ 100 mls/hr IV . Q10H ANA Rx#:[id number] Other: Voiding Method Self-Catheterization Self-Catheterization # Voids 1 1 - Exam On exam patient is resting comfortably in bed in no acute distress. Knee immobilizer is removed and skin is intact. There is mild swelling over the right knee. Calf is soft. - Labs CBC & Chem 7: 05/08/20 06:14 05/08/20 06:14 Labs: Abnormal Lab Results - Last 24 Hours (Table) 05/08/20 05/08/20 Range/Units 06:14 06:14 RBC 3.21 L (4.30-5.90) m/uL Hgb 9.6 L (13.0-17.5) gm/dL Hct 30.2 L (39.0-53.0) % Neutrophils # 8.6 H (1.3-7.7) k/uL Glucose 116 H (70-110) mg/dL Calcium 7.7 L (8.7-10.3) mg/dL Microbiology - Last 24 Hours (Table) 05/05/20 13:34 Blood Culture - Preliminary Blood No Growth after 48 hours Assessment and Plan (1) Fracture of right tibial plateau Current Visit: Yes Status: Acute Code(s): S82.141A - DISPLACED BICONDYLAR FRACTURE OF RIGHT TIBIA, INIT SNOMED Code(s): 585847057 (2) Paraplegia Current Visit: Yes Status: Acute Code(s): G82.20 - PARAPLEGIA, UNSPECIFIED SNOMED Code(s): 54163607 Plan: 1. Continue use of knee immobilizer. 2. Continue daily skin checks. 3. We will continue with nonoperative treatment at this time. Will continue to follow.
[2020-05-08] MEDS: VANCOMYCIN 1,500 MG in SODIUM CHLORIDE 0.9% 250 ML IVPB SCH ×2 (11:14→21:28)
--- NOTE | 2020-05-08 12:43 | P.PN ---
Subjective Progress Note Date: 05/08/20 Principal diagnosis: Buttock wound Patient without new complaints. T-max 99.8. White blood cell count was normal. Wound cultures are not back yet. Objective - Vital Signs Vital signs: Vital Signs Temp 99.1 F 05/08/20 12:27 Pulse 83 05/08/20 12:27 Resp 16 05/08/20 12:27 BP 169/82 05/08/20 12:27 Pulse Ox 97 05/08/20 12:27 Intake & Output 05/07/20 05/08/20 05/08/20 18:59 06:59 18:59 Intake Total 900 Output Total 600 Balance 900 -600 Intake: Intake, IV Titration 900 Amount Ampicillin-Sulbactam 3 gm 100 In Sodium Chloride 0.9% 100 ml @ 200 mls/hr IVPB Q8HR ANA Rx#:[id number] Sodium Chloride 0.9% 1, 800 000 ml @ 40 mls/hr IV . Q24H ANA Rx#:[id number] Output: Urine 600 Other: Voiding Method Self-Catheterization Self-Catheterization # Voids 1 1 - Exam Right gluteal wound clean, minimal serous drainage - Labs CBC & Chem 7: 05/08/20 06:14 05/08/20 06:14 Labs: Abnormal Lab Results - Last 24 Hours (Table) 05/08/20 05/08/20 Range/Units 06:14 06:14 RBC 3.21 L (4.30-5.90) m/uL Hgb 9.6 L (13.0-17.5) gm/dL Hct 30.2 L (39.0-53.0) % Neutrophils # 8.6 H (1.3-7.7) k/uL Glucose 116 H (70-110) mg/dL Calcium 7.7 L (8.7-10.3) mg/dL Microbiology - Last 24 Hours (Table) 05/05/20 13:34 Blood Culture - Preliminary Blood No Growth after 48 hours Assessment and Plan (1) Wound of right buttock Narrative/Plan: Await wound cultures. Continue antibiotics. Continue offloading. Continue local wound care. Current Visit: Yes Status: Acute Code(s): S31.819A - UNSPECIFIED OPEN WOUND OF RIGHT BUTTOCK, INITIAL ENCOUNTER SNOMED Code(s): 542209193
[2020-05-08] MEDS: IBUPROFEN 600 MG TAB PO PRN (17:17)
[2020-05-08] MEDS: HYDROcodone/APAP 10-325MG 1 EACH TAB PO PRN (18:22)
[2020-05-08] MEDS: MAGNESIUM HYDROXIDE 2,400 MG/10 ML CUP PO PRN (18:26)
--- NOTE | 2020-05-08 22:30 | PN ---
PROGRESS NOTE DATE OF SERVICE: 05/08/2020 REASON FOR FOLLOWUP: Right ischial/gluteal area infected pressure ulcer. INTERVAL HISTORY: Patient is currently afebrile. The patient is feeling slightly better today. He is breathing comfortably. Denies any chest pain or cough. No abdominal pain or any pain to the right gluteal wound area. PHYSICAL EXAMINATION: Blood pressure 143/74 with a pulse of 57. Temperature 97.9. He is 100% on room air. General description: The patient is a middle-aged male lying in bed in no distress. Respiratory system: Unlabored breathing. Clear to auscultation anteriorly. Heart S1, S2. Regular rate and rhythm. ABDOMEN: Soft, no tenderness. LABS: Hemoglobin 11.1, white count 10.4. Vancomycin trough has been low at 10.2. DIAGNOSTIC IMPRESSION AND PLAN: Patient with right gluteal area pressure ulcer with concern for underlying osteomyelitis. Culture has been positive for E coli and MRSA. Patient is covered with vancomycin and Unasyn to continue with the plan for a PICC line and outpatient IV Rocephin and vancomycin for a total of 6 weeks. Local wound care currently with Aquacel Silver, but may benefit from the wound VAC. We will discuss further with Surgery. Continue supportive care. MMODL / IJN: [id number] /
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
[2020-05-09] MEDS: AMPICILLIN-SULBACTAM 3 GM in SODIUM CHLORIDE 0.9% 100 ML IVPB SCH ×3 (00:05→11:33)
[2020-05-09] MEDS: FAMOTIDINE 20 MG/2 ML VIAL IV SCH ×2 (07:21→21:19)
[2020-05-09] MEDS: BACLOFEN 10 MG TAB PO SCH ×4 (07:21→21:19)
[2020-05-09] MEDS: diazePAM 5 MG TAB PO SCH ×4 (07:21→21:19)
[2020-05-09] MEDS: HEPARIN SODIUM,PORCINE 5,000 UNIT/ML 1 ML VIAL SQ SCH ×2 (07:21→21:19)
[2020-05-09] MEDS: ATORVASTATIN 40 MG TAB PO SCH (07:21)
[2020-05-09] MEDS: METOPROLOL TARTRATE 25 MG TAB PO SCH ×2 (07:21→21:19)
[2020-05-09] MEDS: ASPIRIN 81 MG PO SCH (07:21)
[2020-05-09] MEDS: tiZANidine 4 MG TAB PO SCH ×2 (07:24→21:19)
[2020-05-09] MEDS: lisinopriL 10 MG TAB PO SCH (07:25)
[2020-05-09] MEDS: VANCOMYCIN 1,500 MG in SODIUM CHLORIDE 0.9% 250 ML IVPB SCH ×2 (07:25→21:15)
[2020-05-09] MEDS: MAGNESIUM HYDROXIDE 2,400 MG/10 ML CUP PO PRN (10:21)
[2020-05-09] MEDS ORDERED: NA PHOS,M-B/NA PHOS,DI-BA 133 ML ENEMA RECTAL ONE (11:08)
--- NOTE | 2020-05-09 11:11 | P.PN ---
<Brenda Nevarez - Last Filed: 05/09/20 11:04> Subjective Progress Note Date: 05/09/20 CHIEF COMPLAINT: Right gluteal decubitus ulcer HISTORY OF PRESENT ILLNESS: Patient is status post debridement of right gluteal decubitus ulcer at bedside. No new complaints. Afebrile. WBC 10.4 from yesterday. Culture results showing presumptive MRSA and group D enterococcus PHYSICAL EXAM: VITAL SIGNS: Reviewed. GENERAL: Well-developed in no acute distress. HEENT: No sclera icterus. Extraocular movements grossly intact. Moist buccal mucosa. Head is atraumatic, normocephalic. ABDOMEN: Soft. Nondistended. Nontender. NEUROLOGIC: Alert and oriented. Cranial nerves II through XII grossly intact. Extremities: Right decubitus ulcer. Clean, minimal serous drainage ASSESSMENT: 1. Right gluteal decubitus ulcer status post debridement at bedside PLAN: -Continue wound care -Continue antibiotics -Continue supportive care -Continue offloading Physician Ux Architect note has been reviewed by physician. Signing provider agrees with the documented findings, assessment, and plan of care. Objective - Vital Signs Vital signs: Vital Signs Temp 98.3 F 05/09/20 03:35 Pulse 73 05/09/20 03:35 Resp 16 05/09/20 03:35 BP 147/79 05/09/20 03:35 Pulse Ox 97 05/09/20 03:35 Intake & Output 05/08/20 05/09/20 05/09/20 18:59 06:59 18:59 Intake Total 450 600 Output Total 600 700 Balance -150 -100 Intake: Intake, IV Titration 450 Amount Ampicillin-Sulbactam 3 gm 200 In Sodium Chloride 0.9% 100 ml @ 200 mls/hr IVPB Q8HR [facility] Rx#:[id number] Vancomycin 1,500 mg In 250 Sodium Chloride 0.9% 250 ml @ 125 mls/hr IVPB Q12HR [facility] Rx#:[id number] Oral 600 Output: Urine 600 700 Other: Voiding Method Self-Catheterization Self-Catheterization Self-Catheterization # Bowel Movements 0 - Labs CBC & Chem 7: 05/08/20 06:14 05/08/20 06:14 Labs: Microbiology - Last 24 Hours (Table) 05/08/20 13:26 Gram Stain - Preliminary Buttock Wound Culture - Preliminary Presumptive MRSA Group D Enterococcus 05/05/20 13:34 Blood Culture - Preliminary Blood No Growth after 72 hours <Matthew Boeyr - Last Filed: 05/09/20 15:48> Subjective As above. Patient doing well. Cultures noted. Continue local wound care. Agree with Aggie. Objective - Vital Signs Vital signs: Vital Signs Temp 98.3 F 05/09/20 03:35 Pulse 73 05/09/20 03:35 Resp 16 05/09/20 03:35 BP 147/79 05/09/20 03:35 Pulse Ox 97 05/09/20 03:35 Intake & Output 05/08/20 05/09/20 05/09/20 18:59 06:59 18:59 Intake Total 450 600 15 Output Total 600 700 600 Balance -150 -100 -585 Intake: IV 15 Intake, IV Titration 450 Amount Ampicillin-Sulbactam 3 gm 200 In Sodium Chloride 0.9% 100 ml @ 200 mls/hr IVPB Q8HR [facility] Rx#:[id number] Vancomycin 1,500 mg In 250 Sodium Chloride 0.9% 250 ml @ 125 mls/hr IVPB Q12HR [facility] Rx#:[id number] Oral 600 Output: Urine 600 700 600 Other: Voiding Method Self-Catheterization Self-Catheterization Self-Catheterization # Bowel Movements 0 - Labs CBC & Chem 7: 05/08/20 06:14 05/08/20 06:14 Labs: Microbiology - Last 24 Hours (Table) 05/05/20 13:34 Blood Culture - Preliminary Blood No Growth after 96 hours 05/08/20 13:26 Gram Stain - Preliminary Buttock Wound Culture - Preliminary Presumptive MRSA Group D Enterococcus Assessment and Plan (1) Wound of right buttock Current Visit: Yes Status: Acute Code(s): S31.819A - UNSPECIFIED OPEN WOUND OF RIGHT BUTTOCK, INITIAL ENCOUNTER SNOMED Code(s): 449689682
[2020-05-09] MEDS: polyethylene glycoL 3350 17 GM POWD.PACK PO SCH (11:28)
--- NOTE | 2020-05-09 11:32 | P.PN ---
Subjective Progress Note Date: 05/09/20 Jaziel Taylor is a 59 yo M with PMH of paraplegia, previous history of sacral wound with flap reconstruction, who presented to the ED with worsening sacral wound. He states he is numb from his chest down, recently had a fall from his wheelchair where he landed on his sacrum and developed an injury/sacral wound. He also noted swelling of his R knee at that time. Pt states his sacral wound has drainged more and developed foul smell over the past week. On presentation vitals stable, WBC 14.8k, Cr 1.84, CRP 310. XR showing erosion of coccyx and fluid collection. 05/09/2020 status post debridement. Depressed appearing, antidepressants offered, patient declined. Afebrile, normal WBC. Wound culture reporting presumptive MRSA and group D enterococcus. Maintained on vancomycin and Unasyn. Denies chest pain, palpitations or shortness of breath. Objective - Vital Signs Vital signs: Vital Signs Temp 98.3 F 05/09/20 03:35 Pulse 73 05/09/20 03:35 Resp 16 05/09/20 03:35 BP 147/79 05/09/20 03:35 Pulse Ox 97 05/09/20 03:35 Intake & Output 05/08/20 05/09/20 05/09/20 18:59 06:59 18:59 Intake Total 450 600 Output Total 600 700 Balance -150 -100 Intake: Intake, IV Titration 450 Amount Ampicillin-Sulbactam 3 gm 200 In Sodium Chloride 0.9% 100 ml @ 200 mls/hr IVPB Q8HR [facility] Rx#:[id number] Vancomycin 1,500 mg In 250 Sodium Chloride 0.9% 250 ml @ 125 mls/hr IVPB Q12HR [facility] Rx#:[id number] Oral 600 Output: Urine 600 700 Other: Voiding Method Self-Catheterization Self-Catheterization # Bowel Movements 0 - Exam General: Sitting up in bed, NAD. Vitals reviewed Eyes: PERRL, EOMI, conjunctiva normal HENT: normocephalic, mucus membranes moist Neck: supple, no JVD Lungs: normal respiratory effort, no wheezes or rales CV: Regular rate and rhythm, no murmur. Peripheral pulses 2+ Abdomen: soft, nondistended, no organomegaly, positive bowel sounds Skin: warm and dry. Sacral ulcer wound dressing clean dry and intact Neuro: A&Ox3, absent strength and sensation below waist - Labs CBC & Chem 7: 05/08/20 06:14 05/08/20 06:14 Labs: Abnormal Lab Results - Last 24 Hours (Table) 05/08/20 Range/Units 06:14 Glucose 116 H (70-110) mg/dL Calcium 7.7 L (8.7-10.3) mg/dL Microbiology - Last 24 Hours (Table) 05/08/20 13:26 Gram Stain - Preliminary Buttock Wound Culture - Preliminary 05/05/20 13:34 Blood Culture - Preliminary Blood No Growth after 72 hours Assessment and Plan Assessment: Stage IV pressure ulcer of right gluteal with secondary cellulitis, status post debridement in a patient with history of sacrum repair with failed flap reconstruction. Essential hypertension Peripheral vascular disease Paraplegia Plan: Continue on current medication regime, monitoring and symptomatic treatment. IV antibiotics/Wound Care as per infectious disease and surgery with potential wound VAC being discussed. PICC line ordered. Social work assisting with discharge to subacute rehab, currently being reviewed by [facility]. Discharge planning in progress pending PICC line placement and final DC recommendations and clearance from both surgery and ID. The impression and plan of care has been dictated as directed. : I performed a history and examination of this patient, discussed the same with the dictator. I agree with the dictator's note ,documented as a scribe. Any additional findings or plans will be noted.
[2020-05-09] MEDS: busPIRone HCl 10 MG TAB PO SCH ×2 (11:33→21:18)
--- NOTE | 2020-05-09 12:43 | P.PN ---
Subjective Progress Note Date: 05/09/20 HISTORY OF PRESENT ILLNESS This is a 59-year-old male treated for right ischiogluteal pressure u lcer with concerns for underlying osteomyelitis. Wound cultures positive for enterococcus and MRSA. He is currently on Unasyn and developed rash for which we will change this to Rocephin and continue on vancomycin. Recommended wound VAC for the patient but he is refusing. Patient denies chest pain or cough. No abdominal pain. He has been afebrile, heart rate 73, blood pressure 147/79, pulse ox 97% on room air. WBC 10.4, hemoglobin 9.6. Creatinine 0.9. PHYSICAL EXAMINATION Gen: This is a 59-year-old male. HEENT: Head is atraumatic, normocephalic. Pupils equal, round. Sclerae is anicteric. NECK: Supple. LUNGS: Clear to auscultation. No wheezes or rhonchi. No intercostal retractions. HEART: Regular rate and rhythm. ABDOMEN: Soft. Bowel sounds are present. No masses. No tenderness. EXTREMITIES: No pedal edema. No calf tenderness. Right gluteal decubitus ulcer NEUROLOGICAL: Patient is awake, alert and oriented x3. ASSESSMENT Right gluteal decubitus ulcer status post I&D PLAN Wound VAC recommended but patient refuses Discontinue Unasyn due to rash and start Rocephin 2 g IV piggyback daily Continue vancomycin, pharmacy dosing Recommend psychiatric evaluation Continue supportive care The above dictated assessment and findings were discussed with Dr. Darby. The impression and plan of care have been directed as dictated. Meagan Love nurse practitioner acting as scribe for Dr. Darby. Objective - Vital Signs Vital signs: Vital Signs Temp 98.3 F 05/09/20 03:35 Pulse 73 05/09/20 03:35 Resp 16 05/09/20 03:35 BP 147/79 05/09/20 03:35 Pulse Ox 97 05/09/20 03:35 Intake & Output 05/08/20 05/09/20 05/09/20 18:59 06:59 18:59 Intake Total 450 600 Output Total 600 700 Balance -150 -100 Intake: Intake, IV Titration 450 Amount Ampicillin-Sulbactam 3 gm 200 In Sodium Chloride 0.9% 100 ml @ 200 mls/hr IVPB Q8HR [facility] Rx#:[id number] Vancomycin 1,500 mg In 250 Sodium Chloride 0.9% 250 ml @ 125 mls/hr IVPB Q12HR [facility] Rx#:[id number] Oral 600 Output: Urine 600 700 Other: Voiding Method Self-Catheterization Self-Catheterization Self-Catheterization # Bowel Movements 0 - Labs CBC & Chem 7: 05/08/20 06:14 05/08/20 06:14 Labs: Microbiology - Last 24 Hours (Table) 05/08/20 13:26 Gram Stain - Preliminary Buttock Wound Culture - Preliminary Presumptive MRSA Group D Enterococcus 05/05/20 13:34 Blood Culture - Preliminary Blood No Growth after 72 hours
[2020-05-09] MEDS: SODIUM CHLORIDE 0.9% 1,000 ML IV SCH (13:14)
[2020-05-09] MEDS ORDERED: LIDOCAINE 1% INJ 10MG/ML (20 ML MDV) SQ ONE (14:12)
[2020-05-09] MEDS ORDERED: IV FLUID CONTINUATION 900 ML IV ONE (14:17)
--- NOTE | 2020-05-09 14:17 | P.PN ---
Progress Note - Text Progress Note Date: 05/09/20 Psychiatry attempted to interview the patient today but he left for PICC line placement. We will attempt to evaluate the patient tomorrow morning. Message was conveyed to the patient's nurse. If anything pertinent please feel free to contact Psychiatry.
[2020-05-09] MEDS: COLLAGENASE 250 UNIT/GM OINTMENT 30 GM TUBE TOPICAL SCH (16:23)
--- NOTE | 2020-05-09 17:06 | IR ---
EXAMINATION TYPE: IR cvc insert >=5 years DATE OF EXAM: 05/09/2020 COMPARISON: NONE CLINICAL HISTORY: Infection Needs long-term intravenous access for antibiotics. PROCEDURE: Hand hygiene obtained with soap and water and alcohol-based hand rub. After informed consent, the skin overlying the left brachial vein was localized with ultrasound and n oted to be compressible and patent. An ultrasound image was obtained and submitted on the patient's chart. The overlying skin was prepped and draped and Lidocaine was used for local anesthesia. A ski n shala was made with a scalpel. Access was gained to the vein under ultrasound guidance with a 21 ga uge needle and a 0.018 inch wire was advanced. Access site was dilated with Peel-Away sheath and cat heter tailored to the appropriate length and advanced such that the distal tip is at the cavoatrial j unction. Spot image was obtained verifying placement. Catheter was fixed to the skin and a sterile dressing was placed following hemostasis. Catheter was aspirated and flushed with saline. Patient w as discharged in stable condition without complication. Maximal barrier technique is utilized. Ultra sound image is documented on the chart. Ultrasound used with sterile technique. Fluoro time and fluoroscopic images submitted to document procedure: 1 intraoperative C-arm image, 0. 2 minutes fluoroscopy time IMPRESSION: STATUS POST ULTRASOUND AND FLUOROSCOPIC GUIDED PICC LINE PLACEMENT, READY FOR USE. THIS PROCEDURE WAS PERFORMED BY THE UNDERSIGNED.
[2020-05-09] MEDS: HYDROcodone/APAP 10-325MG 1 EACH TAB PO PRN (19:54)
[2020-05-10 05:19] VITALS: TEMP 98.9
[2020-05-10] MEDS: BACLOFEN 10 MG TAB PO SCH ×2 (08:40→13:15)
[2020-05-10] MEDS: tiZANidine 4 MG TAB PO SCH (08:41)
[2020-05-10] MEDS: diazePAM 5 MG TAB PO SCH ×2 (08:41→13:15)
[2020-05-10] MEDS: METOPROLOL TARTRATE 25 MG TAB PO SCH (08:41)
[2020-05-10] MEDS: ASPIRIN 81 MG PO SCH (08:41)
[2020-05-10] MEDS: ATORVASTATIN 40 MG TAB PO SCH (08:41)
[2020-05-10] MEDS: polyethylene glycoL 3350 17 GM POWD.PACK PO SCH (08:42)
[2020-05-10] MEDS: FAMOTIDINE 20 MG/2 ML VIAL IV SCH (08:43)
[2020-05-10] MEDS: HEPARIN SODIUM,PORCINE 5,000 UNIT/ML 1 ML VIAL SQ SCH (08:44)
[2020-05-10] MEDS: lisinopriL 10 MG TAB PO SCH (08:44)
[2020-05-10] MEDS: VANCOMYCIN 1,500 MG in SODIUM CHLORIDE 0.9% 250 ML IVPB SCH (08:52)
[2020-05-10] MEDS: busPIRone HCl 10 MG TAB PO SCH (08:58)
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
--- NOTE | 2020-05-10 10:55 | P.PN ---
<Brenda Nevarez - Last Filed: 05/10/20 10:53> Subjective Progress Note Date: 05/10/20 CHIEF COMPLAINT: Right gluteal decubitus ulcer HISTORY OF PRESENT ILLNESS: Patient is status post debridement of right gluteal decubitus ulcer at bedside. No new complaints. Afebrile. Culture results showing presumptive MRSA and group D enterococcus. Patient seen by psychiatry today PHYSICAL EXAM: VITAL SIGNS: Reviewed. GENERAL: Well-developed in no acute distress. HEENT: No sclera icterus. Extraocular movements grossly intact. Moist buccal mucosa. Head is atraumatic, normocephalic. ABDOMEN: Soft. Nondistended. Nontender. NEUROLOGIC: Alert and oriented. Cranial nerves II through XII grossly intact. Extremities: Right decubitus ulcer. Clean, minimal serous drainage ASSESSMENT: 1. Right gluteal decubitus ulcer status post debridement at bedside PLAN: -Continue wound care -Continue antibiotics -Continue supportive care -Continue offloading Physician Engine Buildup Mechanic note has been reviewed by physician. Signing provider agrees with the documented findings, assessment, and plan of care. Objective - Vital Signs Vital signs: Vital Signs Temp 98.9 F 05/10/20 05:00 Pulse 80 05/10/20 05:00 Resp 18 05/10/20 05:00 BP 173/83 05/10/20 05:00 Pulse Ox 97 05/10/20 05:00 Intake & Output 05/09/20 05/10/20 05/10/20 18:59 06:59 18:59 Intake Total 695 Output Total 1225 1000 Balance -530 -1000 Intake: IV 15 Intake, IV Titration 680 Amount Ampicillin-Sulbactam 3 gm 100 In Sodium Chloride 0.9% 100 ml @ 200 mls/hr IVPB Q6HR [facility] Rx#:[id number] Ampicillin-Sulbactam 3 gm 100 In Sodium Chloride 0.9% 100 ml @ 200 mls/hr IVPB Q8HR [facility] Rx#:[id number] Sodium Chloride 0.9% 1, 480 000 ml @ 40 mls/hr IV . Q24H [facility] Rx#:[id number] Output: Urine 1225 1000 Other: Voiding Method Self-Catheterization Self-Catheterization - Labs CBC & Chem 7: 05/08/20 06:14 05/08/20 06:14 Labs: Microbiology - Last 24 Hours (Table) 05/05/20 13:34 Blood Culture - Preliminary Blood No Growth after 96 hours 05/08/20 13:26 Gram Stain - Preliminary Buttock Wound Culture - Preliminary Presumptive MRSA Group D Enterococcus <Matthew Boyer - Last Filed: 05/10/20 16:41> Subjective As above. Patient without new complaints. He is afebrile. Cultures show MRSA and group D enterococcus. Continue antibiotics. Await transfer to [facility]. Objective - Vital Signs Vital signs: Vital Signs Temp 98.9 F 05/10/20 12:56 Pulse 77 05/10/20 12:56 Resp 22 05/10/20 12:56 BP 191/97 05/10/20 13:51 Pulse Ox 98 05/10/20 12:56 Intake & Output 05/09/20 05/10/20 05/10/20 18:59 06:59 18:59 Intake Total 695 720 Output Total 1225 1000 700 Balance -530 -1000 20 Weight 77.111 kg Intake: IV 15 Intake, IV Titration 680 Amount Ampicillin-Sulbactam 3 gm 100 In Sodium Chloride 0.9% 100 ml @ 200 mls/hr IVPB Q6HR [facility] Rx#:[id number] Ampicillin-Sulbactam 3 gm 100 In Sodium Chloride 0.9% 100 ml @ 200 mls/hr IVPB Q8HR [facility] Rx#:[id number] Sodium Chloride 0.9% 1, 480 000 ml @ 40 mls/hr IV . Q24H [facility] Rx#:[id number] Oral 720 Output: Urine 1225 1000 700 Other: Voiding Method Self-Catheterization Self-Catheterization Self-Catheterization # Voids 1 # Bowel Movements 0 - Labs CBC & Chem 7: 05/08/20 06:14 05/10/20 08:08 Labs: Abnormal Lab Results - Last 24 Hours (Table) 05/10/20 Range/Units 08:08 BUN 7.0 L (9.0-27.0) mg/dL BUN/Creatinine Ratio 8.75 L (12.00-20.00) Ratio Glucose 115 H (70-110) mg/dL Calcium 8.2 L (8.7-10.3) mg/dL Microbiology - Last 24 Hours (Table) 05/05/20 13:34 Blood Culture - Preliminary Blood No Growth after 120 hours 05/08/20 13:26 Gram Stain - Final Buttock Wound Culture - Final Methicillin resist S. aureus Enterococcus faecalis Assessment and Plan (1) Wound of right buttock Status: Acute Code(s): S31.819A - UNSPECIFIED OPEN WOUND OF RIGHT BUTTOCK, INITIAL ENCOUNTER SNOMED Code(s): 043115429
[2020-05-10] MEDS: COLLAGENASE 250 UNIT/GM OINTMENT 30 GM TUBE TOPICAL SCH (11:14)
--- NOTE | 2020-05-10 11:31 | P.DS ---
Providers Date of admission: 05/05/20 15:09 Expected date of discharge: 05/10/20 Attending physician: Darryn Adler MD Consults: 05/05/20 15:13 Consult Physician Urgent Consulting Provider: Matthew Boyer Consult Reason/Comments: sacral wound with osteo Do you want consulting provider notified?: Yes Consult Physician Urgent Consulting Provider: Spencer Reddy Consult Reason/Comments: acute right tib/fib fracture Do you want consulting provider notified?: Yes 05/07/20 08:59 Consult Physician Routine Consulting Provider: Archie Darby Consult Reason/Comments: infected bed sore, fever Do you want consulting provider notified?: Yes 05/09/20 12:07 Consult Physician Routine Consulting Provider: Santiago Cespedes Consult Reason/Comments: mood changes,anger, depression Do you want consulting provider notified?: Already Contacted Primary care physician: Desiree Nguyen [facility] Course: Final Diagnoses: Stage IV pressure ulcer of right gluteal with secondary cellulitis, status post debridement in a patient with history of sacrum repair with failed flap reconstruction. Cultures reporting presumptive MRSA and group D enterococcus. Wound VAC Recommended, but patient declining. Essential hypertension Peripheral vascular disease Paraplegia Hospital course:Jaziel Taylor is a 59 yo M with PMH of paraplegia, previous history of sacral wound with flap reconstruction, who presented to the ED with worsening sacral wound. He states he is numb from his chest down, recently had a fall from his wheelchair where he landed on his sacrum and developed an injury/sacral wound. He also noted swelling of his R knee at that time. Pt states his sacral wound has drainged more and developed foul smell over the past week. On presentation vitals stable, WBC 14.8k, Cr 1.84, CRP 310. XR showing erosion of coccyx and fluid collection. 05/09/2020 status post debridement. Depressed appearing, antidepressants offered, patient declined. Afebrile, normal WBC. Wound culture reporting presumptive MRSA and group D enterococcus. Maintained on vancomycin and Unasyn. Denies chest pain, palpitations or shortness of breath. PICC line placed. Evaluated by psychiatry with recommendations noted and appreciated. Patient will be discharged to [facility] today in a stable condition with guarded prognosis pending final DC recommendations/antibiotics/clearance from ID as well as final DC recommendations/Wound Care/clearance from surgery. The impression and plan of care has been dictated as directed. : I performed a history and examination of this patient, discussed the same with the dictator. I agree with the dictator's note ,documented as a scribe. Any additional findings or plans will be noted. Patient Condition at Discharge: Stable Plan - Discharge Summary Discharge Rx Participant: No New Discharge Prescriptions: New busPIRone HCl [Buspar] 10 mg PO BID tab polyethylene glycoL 3350 [Miralax] 17 gm PO DAILY powd.pack Ibuprofen [Motrin] 600 mg PO QID PRN tab PRN Reason: Fever Continue Baclofen [Lioresal] 20 mg PO QID Diazepam [Valium] 10 mg PO QID lisinopriL [Zestril] 10 mg PO QAM tiZANidine HCL [Zanaflex] 1 mg PO BID Metoprolol Tartrate [Lopressor] 25 mg PO BID Atorvastatin Calcium [Lipitor] 40 mg PO DAILY Aspirin 81 mg PO DAILY Ergocalciferol [Vitamin D2 (DRISDOL)] 50,000 unit PO FR HYDROcodone/APAP 10-325MG [[place] 10-325] 1 tab PO Q6H PRN #12 tab PRN Reason: Pain Discontinued Ciprofloxacin HCl [Cipro] 500 mg PO Q12HR Discharge Medication List Baclofen [Lioresal] 20 mg PO QID 01/19/15 [History] Aspirin 81 mg PO DAILY 04/29/20 [History] Atorvastatin Calcium [Lipitor] 40 mg PO DAILY 04/29/20 [History] Diazepam [Valium] 10 mg PO QID 04/29/20 [History] Ergocalciferol [Vitamin D2 (DRISDOL)] 50,000 unit PO FR 04/29/20 [History] Metoprolol Tartrate [Lopressor] 25 mg PO BID 04/29/20 [History] lisinopriL [Zestril] 10 mg PO QAM 04/29/20 [History] tiZANidine HCL [Zanaflex] 1 mg PO BID 04/29/20 [History] HYDROcodone/APAP 10-325MG [[place] 10-325] 1 tab PO Q6H PRN #12 tab 05/09/20 [Rx] Ibuprofen [Motrin] 600 mg PO QID PRN tab 05/09/20 [Rx] busPIRone HCl [Buspar] 10 mg PO BID tab 05/09/20 [Rx] polyethylene glycoL 3350 [Miralax] 17 gm PO DAILY powd.pack 05/09/20 [Rx] Follow up Appointment(s)/Referral(s): Darryn Adler MD [STAFF PHYSICIAN] - 1 Week (After discharge from subacute rehab) Activity/Diet/Wound Care/Special Instructions: [facility] IV antibiotics as per ID, final DC recommendations including wound care ,recommendations and clearance from surgery CBC,BMP in 3 days
[2020-05-10 12:36] LABS: African American GFR (CKD) 114.9 (60.0-200.0); Anion Gap 8.4 mmol/L (4.00-12.00); BUN/Creat Ratio 8.75 Ratio (12.00-20.00); Calcium 8.2 mg/dL (8.7-10.3); Carbon Dioxide 27.6 mmol/L (21.6-31.8); Non-African American GFR(CKD) 99.2 (60.0-200.0); Potassium 4.3 mmol/L (3.5-5.5)
[2020-05-10] MEDS: SODIUM CHLORIDE 0.9% 1,000 ML IV SCH (13:16)
[2020-05-10 13:21] VITALS: PULSE 77; RESP 22
--- NOTE | 2020-05-10 13:32 | P.PN ---
Subjective Progress Note Date: 05/10/20 HISTORY OF PRESENT ILLNESS This is a 59-year-old male treated for right ischiogluteal pressure u lcer with concerns for underlying osteomyelitis. Wound cultures positive for enterococcus and MRSA. He is currently on Rocephin and vancomycin. Recommended wound VAC for the patient but he is refusing. Patient denies chest pain or cough. No abdominal pain. He has been afebrile, heart rate 77, blood pressure 183/91, pulse ox 98% on room air. Creatinine 0.8. Patient is scheduled for discharge to [facility]. PHYSICAL EXAMINATION Gen: This is a 59-year-old male. HEENT: Head is atraumatic, normocephalic. Pupils equal, round. Sclerae is anicteric. NECK: Supple. LUNGS: Clear to auscultation. No wheezes or rhonchi. No intercostal retractions. HEART: Regular rate and rhythm. ABDOMEN: Soft. Bowel sounds are present. No masses. No tenderness. EXTREMITIES: No pedal edema. No calf tenderness. Right gluteal decubitus ulcer NEUROLOGICAL: Patient is awake, alert and oriented x3. ASSESSMENT Right gluteal decubitus ulcer status post I&D PLAN Wound VAC recommended but patient refuses Rocephin 2 g IV piggyback daily to complete a full 6 weeks of antibiotics Continue vancomycin, pharmacy dosing, to complete a full 6 weeks of antibiotics Continue supportive care The above dictated assessment and findings were discussed with Dr. Darby. The impression and plan of care have been directed as dictated. Meagan Love nurse practitioner acting as scribe for Dr. Darby. Objective - Vital Signs Vital signs: Vital Signs Temp 98.9 F 05/10/20 05:00 Pulse 76 05/10/20 08:00 Resp 18 05/10/20 08:00 BP 173/83 05/10/20 05:00 Pulse Ox 97 05/10/20 05:00 Intake & Output 05/09/20 05/10/20 05/10/20 18:59 06:59 18:59 Intake Total 695 360 Output Total 1225 1000 700 Balance -530 -1000 -340 Intake: IV 15 Intake, IV Titration 680 Amount Ampicillin-Sulbactam 3 gm 100 In Sodium Chloride 0.9% 100 ml @ 200 mls/hr IVPB Q6HR [facility] Rx#:[id number] Ampicillin-Sulbactam 3 gm 100 In Sodium Chloride 0.9% 100 ml @ 200 mls/hr IVPB Q8HR [facility] Rx#:[id number] Sodium Chloride 0.9% 1, 480 000 ml @ 40 mls/hr IV . Q24H [facility] Rx#:[id number] Oral 360 Output: Urine 1225 1000 700 Other: Voiding Method Self-Catheterization Self-Catheterization Self-Catheterization # Voids 1 # Bowel Movements 0 - Labs CBC & Chem 7: 05/08/20 06:14 05/10/20 08:08 Labs: Abnormal Lab Results - Last 24 Hours (Table) 05/10/20 Range/Units 08:08 BUN 7.0 L (9.0-27.0) mg/dL BUN/Creatinine Ratio 8.75 L (12.00-20.00) Ratio Glucose 115 H (70-110) mg/dL Calcium 8.2 L (8.7-10.3) mg/dL Microbiology - Last 24 Hours (Table) 05/05/20 13:34 Blood Culture - Preliminary Blood No Growth after 96 hours 05/08/20 13:26 Gram Stain - Preliminary Buttock Wound Culture - Preliminary Presumptive MRSA Group D Enterococcus
[2020-05-10] MEDS ORDERED: lisinopriL 10 MG TAB PO STA (13:49)
[2020-05-10 13:55] VITALS: BP 191/97
--- NOTE | 2020-05-12 10:38 | CDI ---
Documentation Clarification Form Date: 05/12/2020 10:22:18 AM From: ARELI Rivas; [employer]lin [employer] Sales Representative Phone: If you have a question about this query, please contact [employer] Sales Representative, at [phone] between 8 am and 5 pm. Admit Date: 05/05/2020 03:09:00 PM Patient Name: Jaziel Taylor Visit Number: [id number] Discharge Date: 05/10/2020 04:24:00 PM ATTENTION: The Clinical Documentation Specialists (CDI) and [facility] Coding Staff appreciate your assistance in clarifying documentation. Please respond to the clarification below the line at the bottom and electronically sign. The CDI & [facility] Coding staff will review the response and follow-up if needed. Please note: Queries are made part of the Legal Health Record. If you have any questions, please contact the author of this message via ITS. Dr. Darryn Adler Sepsis is documented in progress notes dated 04/06 and 04/07. History/Risk Factors: The patient presented with stage IV sacral decubitus ulcer with surrounding cellulitis and possible osteomyelitis. An excisional debridement was performed. Clinical Indicators: Vitals on H&P: Temp 100.7, BP 108/64, HR 95, WBC 11.8. Treatment: Unasyn and Vancomycin. Definition of Present on Admission (POA): A diagnosis present at the time the order for admission to inpatient status was written. For each diagnosis, documentation must be clear to determine if the condition was present at the time of the patients inpatient admission or developed during the hospital stay. Please clarify if sepsis was POA: Sepsis ruled out ____Y = Yes, the condition was present at the time of the order for inpatient admission. ____N = No, the condition was not present at the time of the order for inpatient admission. ____W = clinically undetermined if the condition was present at the time of the order for inpatient admission. (Last Revision: Mar 2018) Y MTDD
== END 2020-05-10 16:24 | DRG 853 ==
LOC: EC 11:52 → 5NMEDONC 15:09
PROVIDERS: ADMIT Family Medicine; ATTEND Family Medicine
PROC: 0KBN0ZZ Excision of Right Hip Muscle, Open Approach (ICD-10-PCS; principal; 2020-05-05)
PROC: 0S9C3ZX Drainage of Right Knee Joint, Percutaneous Approach, Diagnostic (ICD-10-PCS; 2020-05-06)
PROC: 02HV33Z Insertion of Infusion Device into Superior Vena Cava, Percutaneous Approach (ICD-10-PCS; 2020-05-09)
DX: A41.9 Sepsis, unspecified organism (principal); L89.314 Pressure ulcer of right buttock, stage 4; L89.154 Pressure ulcer of sacral region, stage 4; S82.141A Displaced bicondylar fracture of right tibia, initial encounter for closed fracture; G82.20 Paraplegia, unspecified; L03.317 Cellulitis of buttock; M86.9 Osteomyelitis, unspecified; B95.2 Enterococcus as the cause of diseases classified elsewhere; E78.5 Hyperlipidemia, unspecified; F32.9 Major depressive disorder, single episode, unspecified; I10 Essential (primary) hypertension; I73.9 Peripheral vascular disease, unspecified; B95.62 Methicillin resistant Staphylococcus aureus infection as the cause of diseases classified elsewhere; N30.90 Cystitis, unspecified without hematuria; N31.9 Neuromuscular dysfunction of bladder, unspecified; W05.0XXA Fall from non-moving wheelchair, initial encounter; Z53.20 Procedure and treatment not carried out because of patient's decision for unspecified reasons; Z79.82 Long term (current) use of aspirin; Z79.899 Other long term (current) drug therapy; Z80.7 Family history of other malignant neoplasms of lymphoid, hematopoietic and related tissues; Z82.49 Family history of ischemic heart disease and other diseases of the circulatory system; Z83.3 Family history of diabetes mellitus; Z87.891 Personal history of nicotine dependence; Z89.612 Acquired absence of left leg above knee; Z99.3 Dependence on wheelchair; Z88.6 Allergy status to analgesic agent; Z88.8 Allergy status to other drugs, medicaments and biological substances; Z86.010 Personal history of colon polyps; X93.XXXS Assault by handgun discharge, sequela; S24.103S Unspecified injury at T7-T10 level of thoracic spinal cord, sequela; Z88.5 Allergy status to narcotic agent
CPT/HCPCS: 36415; 36573; 74177; 80048; 80053; 80202; 81001; 82565; 83605; 85025; 85610; 85652; 85730; 86140; 87040; 87070; 87075; 87077; 87086; 87186; 87205; 88304; 88312; 96365; 96366; 96367; 99285

== ENCOUNTER → 2020-06-13 | Day surgery (SDC) | payer MEDICARE, OTHER ==
[2020-06-10 12:09] VITALS: BMI 21.8
[~2020-06-13] MED LIST: ALPRAZolam 0.25 MG TAB PO PRN; HEPARIN SODIUM,PORCINE 10,000 UNIT in SODIUM CHLORIDE 0.9% 1,000 ML IRRIGATION PRN; HEPARIN SODIUM,PORCINE 2,500 UNIT in SODIUM CHLORIDE 0.9% 250 ML IRRIGATION PRN; IOPAMIDOL-250 100ML BTL INTRAARTER ONE; LIDOCAINE 1% INJ 10MG/ML (20 ML MDV) ONE; LIDOCAINE 1% INJ 10MG/ML (20 ML MDV) SQ ONE; MIDAZOLAM 2 MG/2 ML VIAL IVP ONE; SODIUM CHLORIDE 0.9% 1,000 ML in EMPTY BAG 1 BAG IV ONE; ZOLPIDEM 5 MG TAB PO PRN; fentaNYL (PF) 50 MCG/ML 2 ML AMP IVP ONE; fentaNYL (PF) 50 MCG/ML 2 ML AMP ONE
[2020-06-13 12:03] VITALS: RESP 16; TEMP 98.1
[2020-06-13 16:31] VITALS: BP 98/54; PULSE 72
--- NOTE | 2020-06-14 13:22 | IR ---
Fluoroscopy HISTORY: Peripheral vascular occlusive disease 0.8 minutes fluoroscopy time, fluoroscopy time supplied to the referring clinician. 125 intraoperati ve C-arm images document the procedure. See dictated report from vascular surgery.
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
== END ==
LOC: CATHCVL 11:31
PROVIDERS: ATTEND Surgery
DX: I73.9 Peripheral vascular disease, unspecified (principal); E78.5 Hyperlipidemia, unspecified; G82.20 Paraplegia, unspecified; Z87.891 Personal history of nicotine dependence; Z89.612 Acquired absence of left leg above knee; E78.00 Pure hypercholesterolemia, unspecified; Z98.1 Arthrodesis status; Z98.890 Other specified postprocedural states; Z83.6 Family history of other diseases of the respiratory system; Z82.49 Family history of ischemic heart disease and other diseases of the circulatory system; Z79.82 Long term (current) use of aspirin; Z79.891 Long term (current) use of opiate analgesic; Z79.899 Other long term (current) drug therapy; Z88.6 Allergy status to analgesic agent; Z88.5 Allergy status to narcotic agent
CPT/HCPCS: 36246; 75625; 75710; 76937; C1769 ×5; C1894; J2250; J2001; J3010; Q9966

== ENCOUNTER 2020-07-05 18:46 | Inpatient (IN) | payer MEDICARE, OTHER ==
[2020-07-05] MEDS ORDERED: SODIUM CHLORIDE 0.9% 1,000 ML IV ONE ×2 (21:39→23:02)
[2020-07-05 22:12] LABS: Basophils % (A) 0 %; Eosinophils # (A) 0.1 k/uL (0-0.7); Eosinophils % (A) 1 %; HCT 30.6 % (39.0-53.0); Lymphocytes % (A) 8 %; MCH 29.4 pg (25.0-35.0); MCHC 32.7 g/dL (31.0-37.0); MCV 89.9 fL (80.0-100.0); Monocytes # (A) 0.4 k/uL (0-1.0); Monocytes % (A) 3 %; Neutrophils # (A) 11.9 k/uL (1.3-7.7); Neutrophils % (A) 88 %; Platelet Count 680 k/uL (150-450); RBC 3.41 m/uL (4.30-5.90); RDW 15.4 % (11.5-15.5); WBC 13.5 k/uL (3.8-10.6)
[2020-07-05 22:22] LABS: ALT 14 U/L (4-49); AST 29 U/L (17-59); African American GFR (CKD) >90 (>60 ml/min/1.73 sqM); Albumin 3.6 g/dL (3.5-5.0); Alkaline Phosphatase 77 U/L (38-126); Anion Gap 11 mmol/L; Blood Urea Nitrogen 14 mg/dL (9-20); Calcium 8.6 mg/dL (8.4-10.2); Carbon Dioxide 26 mmol/L (22-30); Chloride 99 mmol/L (98-107); Glucose 119 mg/dL (74-99); Non-African American GFR(CKD) >90 (>60 ml/min/1.73 sqM); Potassium 4.7 mmol/L (3.5-5.1); Sodium 136 mmol/L (137-145); Total Bilirubin 0.5 mg/dL (0.2-1.3)
[2020-07-05 22:23] LABS: INR 1.1 (<1.2); Partial Thromboplastin Time 26.9 sec (22.0-30.0); Prothrombin Time 11.3 sec (9.0-12.0)
[2020-07-05] MEDS: SODIUM CHLORIDE 0.9% 1,000 ML IV SCH (22:30)
--- NOTE | 2020-07-05 22:43 | XR ---
EXAMINATION TYPE: XR tibia fibula RT DATE OF EXAM: 07/05/2020 COMPARISON: NONE HISTORY: Pain. TECHNIQUE: 3 views FINDINGS: There is acute impacted comminuted transverse fracture proximal tibial metaphysis. There is also similar impacted fracture of the neck of the fibula head. There is no dislocation. There is ost eopenia. The ankle mortise appears anatomic. IMPRESSION: Acute comminuted impacted fractures proximal tibia and fibula.
[2020-07-05] MEDS ORDERED: ACETAMINOPHEN TAB 325 MG TAB PO STA (22:59)
[2020-07-05] MEDS ORDERED: VANCOMYCIN IV PER PHARMACY 1 EACH MISC MISCELLANE PRN (23:00)
[2020-07-05] MEDS ORDERED: VANCOMYCIN 1,500 MG in SODIUM CHLORIDE 0.9% 250 ML IVPB ONE (23:15)
--- NOTE | 2020-07-05 23:25 | XR ---
EXAMINATION TYPE: XR pelvis AP view DATE OF EXAM: 07/05/2020 COMPARISON: NONE HISTORY: Right buttock nonhealing wound. Paraplegia. TECHNIQUE: Single view FINDINGS: There is narrowing of the hip joint spaces. There is acetabular spurring. The pelvic ring i s intact. I see no focal bone destruction. Sacroiliac joints are intact. There is osteopenia. There i s some lucency over the right ischium. This is consistent with an ulcer. This measures approximately 6 x 2.5 cm. IMPRESSION: Soft tissue lucency on the right side consistent with ulceration over the right ischium. No focal bone destruction seen.
[2020-07-05] MEDS ORDERED: diazePAM 5 MG TAB PO STA (23:31)
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
[2020-07-06] MEDS ORDERED: diazePAM 5 MG TAB PO STA (00:18)
[2020-07-06] MEDS ORDERED: MORPHINE SULFATE 4 MG/ML SYRINGE IV PRN (00:22)
[2020-07-06] MEDS ORDERED: NALOXONE 0.4 MG/ML 1 ML VIAL IV PRN (00:22)
[2020-07-06] MEDS ORDERED: ONDANSETRON 4 MG/2 ML VIAL IVP PRN (00:22)
[2020-07-06 01:02] LABS: Appearance,Urine Cloudy (Clear); Bacteria,Urine Rare /hpf; Bilirubin,Urine Negative (Negative); Blood,Urine Trace (Negative); Color,Urine Yellow; Glucose,Urine (UA) Negative (Negative); Hyaline Casts,Urine 1 /lpf (0-2); Ketones,Urine Trace (Negative); Leukocyte Esterase,Urine Negative (Negative); Mucus,Urine Moderate /hpf; Nitrite,Urine Negative (Negative); Protein,Urine 1+ (Negative); RBC,Urine 45 /hpf (0-5); Specific Gravity,Urine 1.023 (1.001-1.035); Squamous Epithelial Cell,Urine 2 /hpf (0-4); Urobilinogen,Urine <2.0 mg/dL (<2.0); WBC,Urine 9 /hpf (0-5)
[2020-07-06] MEDS: PIPERACILLIN-TAZOBACTAM 3.375 GM in SODIUM CHLORIDE 0.9% 100 ML IVPB SCH ×3 (01:56→16:53)
[2020-07-06] MEDS: BACLOFEN 10 MG TAB PO PRN ×3 (07:41→15:15)
[2020-07-06] MEDS: SODIUM CHLORIDE 0.9% 1,000 ML IV SCH ×2 (07:50→15:16)
[2020-07-06] MEDS: METOPROLOL TARTRATE 25 MG TAB PO SCH ×2 (09:11→20:31)
[2020-07-06] MEDS: ASPIRIN 81 MG PO SCH (09:11)
[2020-07-06] MEDS: diazePAM 5 MG TAB PO PRN ×2 (09:12→15:15)
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
[2020-07-06] MEDS ORDERED: VANCOMYCIN 1,500 MG in SODIUM CHLORIDE 0.9% 250 ML IVPB SCH (12:00)
[2020-07-06] MEDS: VANCOMYCIN 1,500 MG in SODIUM CHLORIDE 0.9% 250 ML IVPB SCH (12:45)
[2020-07-06] MEDS: ATORVASTATIN 40 MG TAB PO SCH (20:31)
[2020-07-06] MEDS ORDERED: BACLOFEN 10 MG TAB PO SCH (21:00)
[2020-07-06] MEDS: diazePAM 5 MG TAB PO SCH (21:19)
[2020-07-06] MEDS: BACLOFEN 10 MG TAB PO SCH (21:19)
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
[2020-07-06] MEDS: AMPICILLIN-SULBACTAM 3 GM in SODIUM CHLORIDE 0.9% 100 ML IVPB SCH (23:33)
[2020-07-07] MEDS: VANCOMYCIN 1,500 MG in SODIUM CHLORIDE 0.9% 250 ML IVPB SCH ×3 (00:19→22:54)
[2020-07-07] MEDS: SODIUM CHLORIDE 0.9% 1,000 ML IV SCH ×3 (05:26→22:48)
[2020-07-07] MEDS: BACLOFEN 10 MG TAB PO SCH ×5 (05:26→20:54)
[2020-07-07] MEDS: AMPICILLIN-SULBACTAM 3 GM in SODIUM CHLORIDE 0.9% 100 ML IVPB SCH ×5 (05:39→22:48)
[2020-07-07] MEDS: diazePAM 5 MG TAB PO SCH ×4 (05:49→20:48)
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
[2020-07-07] MEDS: METOPROLOL TARTRATE 25 MG TAB PO SCH ×2 (09:14→20:48)
[2020-07-07] MEDS: ASPIRIN 81 MG PO SCH (09:14)
--- NOTE | 2020-07-07 09:15 | P.PN ---
Subjective Progress Note Date: 07/07/20 Principal diagnosis: Right lower extremity wounds, peripheral arterial disease Patient is seen and examined lying flat in bed. He has a affect. States he wants his right lower extremity "chopped off." Denies any fevers or chills through the night, or acute changes. Objective - Vital Signs Vital signs: Vital Signs Temp 98.8 F 07/07/20 05:54 Pulse 77 07/07/20 05:54 Resp 18 07/07/20 05:54 BP 126/61 07/07/20 05:54 Pulse Ox 95 07/07/20 05:54 Intake & Output 07/06/20 07/07/20 07/07/20 18:59 06:59 18:59 Intake Total 450 Output Total 300 Balance 150 Weight 77.111 kg Intake: Intake, IV Titration 450 Amount Ampicillin-Sulbactam 3 gm 100 In Sodium Chloride 0.9% 100 ml @ 200 mls/hr IVPB Q6HR ANA Rx#:[id number] Piperacillin-Tazobactam 3 100 .375 gm In Sodium Chloride 0.9% 100 ml @ 25 mls/hr IVPB Q8HR ANA Rx# :[id number] Vancomycin 1,500 mg In 250 Sodium Chloride 0.9% 250 ml @ 125 mls/hr IVPB Q12H ANA Rx#:[id number] Output: Urine 300 Other: Voiding Method Self-Catheterization Self-Catheterization # Voids 2 - Exam General appearance: The patient is alert, oriented, in no acute distress. HET: Head is normocephalic and atraumatic. Neck: Supple without lymphadenopathy. Trachea midline. Heart: S1 S2. Regular rate and rhythm. Lungs: No crackles or wheezes are heard. Abdomen: Soft, nontender, nondistended. Extremities: Left lower extremity with low the knee amputation, Positive femoral doppler signal. Palpable right femoral pulse, Doppler signal of the right popliteal and posterior tibialis, unable to obtain Doppler signal of the right dorsalis pedis. He has multiple wounds on his right lower extremity including the medial aspect of the right ankle, lateral aspect of the ankle up to the smith with redness, unstageable wound on the right heel, and necrotic tissue to the lateral plantar aspect of the right foot. Neurological: Paraplegic. Alert and oriented 3. - Labs CBC & Chem 7: 07/05/20 22:03 07/07/20 08:11 Labs: Microbiology - Last 24 Hours (Table) 07/05/20 21:45 Blood Culture - Preliminary Blood No Growth after 24 hours 07/05/20 22:00 Blood Culture - Preliminary Blood No Growth after 24 hours Assessment and Plan Assessment: 1. Occlusion of the right femoral artery 2. Aortoiliac occlusive disease 3. Chronic wounds to the right lower extremity 4. Hyperlipidemia 5. Hypertension 6. Paraplegia 7. Nicotine dependence 8. History of left [id number] amputation Plan: 1. Supportive care 2. Continue IV antibiotics as ordered 3. Await cardiology recommendations for cardiac clearance for right lower extremity revascularization 4. Infectious disease, Dr. Darby for local wound care 5. Plan for right lower extremity revascularization on Saturday 6. Recommend outpatient consultation with Plastic Surgeon Thank you for this consultation, we will continue to follow with you closely. The impression and plan of care has been dictated as directed. Dr. Ramirez I performed a history and examination of this patient, discussed the same with the dictator. I agree with the dictator's note ,documented as a scribe. Any additional findings or plans will be noted.
--- NOTE | 2020-07-07 11:00 | ECHOF ---
Referral Reason:cardiac clearance MEASUREMENTS -------- HEIGHT: 190.5 cm WEIGHT: 77.1 kg BP: 126/61 RVIDd: 2.5 cm (< 3.3) IVSd: 1.1 cm (0.6 - 1.1) LVIDd: 4.8 cm (3.9 - 5.3) LVPWd: 1.1 cm (0.6 - 1.1) IVSs: 1.6 cm LVIDs: 3.4 cm LVPWs: 1.9 cm LA Diam: 3.0 cm (2.7 - 3.8) Ao Diam: 3.3 cm (2.0 - 3.7) AV Cusp: 1.8 cm (1.5 - 2.6) MV EXCURSION: 16.399 mm (> 18.000) MV EF SLOPE: 122 mm/s (70 - 150) EPSS: 0.6 cm MV E Jama: 1.06 m/s MV DecT: 193 ms MV A Jama: 0.88 m/s MV E/A Ratio: 1.21 AV maxP.27 mmHg AV meanP.61 mmHg FINDINGS -------- Sinus rhythm. This was a technically adequate study. The left ventricular size is normal. There is borderline concentric left ventricular hypertrophy. Overall left ventricular systolic function is normal with, an EF between 60 - 65 %. The right ventricle is normal in size. The left atrium is normal in size. The right atrium is normal in size. Interatrial and interventricular septum intact. There is mild aortic valve sclerosis. There is mild aortic stenosis present. Peak/mean gradient a cross the Aortic Valve is 17.27mmHg / 9.61mmHg. Mild mitral annular calcification present. The tricuspid valve appears structurally normal. There is no pulmonic regurgitation present. The aortic root size is normal. Normal inferior vena cava with normal inspiratory collapse consistent with estimated right atrial pre ssure of 5 mmHg. There is no pericardial effusion. CONCLUSIONS -------- 1. The left ventricular size is normal. 2. There is borderline concentric left ventricular hypertrophy. 3. Overall left ventricular systolic function is normal with, an EF between 60 - 65 %. 4. There is mild aortic valve sclerosis. 5. There is mild aortic stenosis present. 6. Peak/mean gradient across the Aortic Valve is 17.27mmHg / 9.61mmHg. 7. Mild mitral annular calcification present. 8. There is no pulmonic regurgitation present. 9. There is no pericardial effusion. DIETETIC AIDE: Svitlana Barnard RDCS
[2020-07-07 11:23] VITALS: BMI 21.2
[2020-07-07 11:47] LABS: African American GFR (CKD) 121.4 (60.0-200.0); Non-African American GFR(CKD) 104.8 (60.0-200.0)
[2020-07-07] MEDS ORDERED: AMINOPHYLLINE 500 MG/20 ML VIAL IV PRN (11:47)
[2020-07-07] MEDS ORDERED: CAFFEINE CITRATE 60 MG/3 ML VIAL IV PRN (11:47)
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
--- NOTE | 2020-07-07 13:50 | P.PN ---
Subjective Progress Note Date: 07/07/20 Jaziel Taylor is a 59 yo M with PMH of paraplegia, previous history of sacral wound with flap reconstruction, recent admission for sacral wound who presented to the ED complaining of fever, weakness and worsening drainage from RLE wound and sacral wound. He was just discharged from [facility] on oral flagyl and completed his course last week. He has been noticing He states he is numb from his chest down, recently had a fall from his wheelchair where he landed on his sacrum and developed an injury/sacral wound. He also noted swelling of his R knee at that time. Pt states his sacral wound has drainged more and developed foul smell over the past week. He states he is aware this leg will take months if not years to heal and he would prefer an amputation. 07/07/2020 Maintained on Unasyn and vancomycin. Afebrile. Patient reporting frustration, requesting amputation. Evaluated by vascular surgery, amputation not recommended at this time -recommending revascularization of right lower extremity .Denies pain.denies chest pain, palpitations or shortness of breath. Vital signs stable, maintaining O2 sats in the high 90s on room air . Objective - Vital Signs Vital signs: Vital Signs Temp 98.8 F 07/07/20 05:54 Pulse 77 07/07/20 05:54 Resp 18 07/07/20 05:54 BP 126/61 07/07/20 05:54 Pulse Ox 95 07/07/20 05:54 Intake & Output 07/06/20 07/07/20 07/07/20 18:59 06:59 18:59 Intake Total 450 Output Total 300 Balance 150 Weight 77.111 kg 77.111 kg Intake: Intake, IV Titration 450 Amount Ampicillin-Sulbactam 3 gm 100 In Sodium Chloride 0.9% 100 ml @ 200 mls/hr IVPB Q6HR ANA Rx#:[id number] Piperacillin-Tazobactam 3 100 .375 gm In Sodium Chloride 0.9% 100 ml @ 25 mls/hr IVPB Q8HR ANA Rx# :[id number] Vancomycin 1,500 mg In 250 Sodium Chloride 0.9% 250 ml @ 125 mls/hr IVPB Q12H ANA Rx#:[id number] Output: Urine 300 Other: Voiding Method Self-Catheterization Self-Catheterization # Voids 2 - Exam General: Lying in bed, NAD. Vitals reviewed Eyes: PERRL, EOMI, conjunctiva normal HENT: normocephalic, mucus membranes moist Neck: supple, no JVD Lungs: normal respiratory effort, no wheezes or rales CV: Regular rate and rhythm, no murmur. Peripheral pulses 2+ Abdomen: soft, nondistended, no organomegaly Lymph: no cervical or axillary LAD Skin: warm and dry. L AKA. RLE with multiple wounds, necrotic tissue/dressing clean dry and intact. Neuro: A&Ox3, normal mood and affect Microbiology 07/05/20 21:45 Blood Blood Culture - Preliminary No Growth after 24 hours 07/05/20 22:00 Blood Blood Culture - Preliminary No Growth after 24 hours - Labs CBC & Chem 7: 07/05/20 22:03 07/07/20 08:11 Labs: Microbiology - Last 24 Hours (Table) 07/05/20 21:45 Blood Culture - Preliminary Blood No Growth after 24 hours 07/05/20 22:00 Blood Culture - Preliminary Blood No Growth after 24 hours Assessment and Plan Assessment: (1) Infected woundcellulitis and wet gangrene of right foot, vascular and infectious disease following Current Visit: Yes Status: Acute Code(s): T14.8XXA - OTHER INJURY OF UNSPECIFIED BODY REGION, INITIAL ENCOUNTER; L08.9 - LOCAL INFECTION OF THE SKIN AND SUBCUTANEOUS TISSUE, UNSP SNOMED Code(s): 92359600 (2) Essential hypertension Current Visit: No Status: Acute Code(s): I10 - ESSENTIAL (PRIMARY) HYPERTENSION SNOMED Code(s): 35139886 (3) Stage 4 skin ulcer of sacral region Current Visit: No Status: Acute Code(s): L98.429 - NON-PRESSURE CHRONIC ULCER OF BACK WITH UNSPECIFIED SEVERITY SNOMED Code(s): 67047080 (4) Vascular disease Current Visit: No Status: Acute Code(s): I99.9 - UNSPECIFIED DISORDER OF C IRCULATORY SYSTEM SNOMED Code(s): 23320922 (5) Wound of right buttock Current Visit: No Status: Acute Code(s): S31.819A - UNSPECIFIED OPEN WOUND OF RIGHT BUTTOCK, INITIAL ENCOUNTER SNOMED Code(s): 789411441 (6) Occlusion of right femoral artery Current Visit: Yes Status: Acute Code(s): I70.201 - UNSP ATHSCL [place] ARTERIES OF EXTREMITIES, RIGHT LEG SNOMED Code(s): 27727545136549020 (7) Paraplegia (8) peripheral vascular disease Plan: Continue on current medication regime ,monitoring and symptomatic treatment. IV antibiotics/local wound care as per infectious disease. Close monitoring of renal function with repeat labs in a.m. Evaluated by infectious disease with right lower extremity revascularization scheduled for Saturday. Cardiac clearance being obtained for surgery. Prognosis guarded given multiple complex medical issues. The impression and plan of care has been dictated as directed. : I performed a history and examination of this patient, discussed the same with the dictator. I agree with the dictator's note ,documented as a scribe. Any additional findings or plans will be noted.
--- NOTE | 2020-07-07 19:26 | PN ---
PROGRESS NOTE DATE OF SERVICE: 07/07/2020 REASON FOR FOLLOWUP: 1. Left gluteal pressure ulcer. 2. Right ischemic foot. INTERVAL HISTORY: The patient is currently afebrile. The patient is breathing comfortably. The patient denies having any chest pain or shortness of breath or cough. No nausea, no vomiting, no abdominal pain or diarrhea. PHYSICAL EXAMINATION: Blood pressure 145/79 with a pulse of 73, temperature 97.3. He is 100% on room air. General description is a middle-aged male lying in bed in no distress. RESPIRATORY SYSTEM: Unlabored breathing. Clear to auscultation anteriorly. HEART: S1, S2. Regular rate and rhythm. ABDOMEN: Soft. No tenderness. Right foot did have multiple ischemic changes. Left gluteal wound with the bone palpable. No significant surrounding redness. Did have minimal slough tissue. LABS: Creatinine 0.7. Blood culture so far negative. DIAGNOSTIC IMPRESSION AND PLAN: 1. Patient admitted to hospital with fever and weakness in this patient who did have an infected left gluteal pressure ulcer with a recent episode of osteomyelitis secondary Escherichia coli and methicillin-resistant Staphylococcus aeruginosa. Bone is still exposed. The wound has not healed. Recommend reevaluation by General Surgery for possible debridement and deep culture. Continue with the Unasyn and the vancomycin. 2. Patient with right foot ischemic changes. May benefit from amputation. Vascular Surgery is following the patient. Continue with supportive care. MMODL / IJN: [id number] /
[2020-07-07] MEDS: ATORVASTATIN 40 MG TAB PO SCH (20:47)
[2020-07-08] MEDS: AMPICILLIN-SULBACTAM 3 GM in SODIUM CHLORIDE 0.9% 100 ML IVPB SCH ×4 (06:07→20:29)
[2020-07-08] MEDS ORDERED: REGADENOSON 0.4 MG/5 ML SYRINGE IV PRN (08:00)
[2020-07-08] MEDS: METOPROLOL TARTRATE 25 MG TAB PO SCH ×2 (08:22→20:38)
[2020-07-08] MEDS: ASPIRIN 81 MG PO SCH (08:22)
[2020-07-08] MEDS: SODIUM CHLORIDE 0.9% 1,000 ML IV SCH ×2 (08:23→18:00)
[2020-07-08] MEDS: diazePAM 5 MG TAB PO SCH ×4 (08:23→20:38)
[2020-07-08] MEDS: BACLOFEN 10 MG TAB PO SCH ×4 (08:23→20:38)
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
[2020-07-08] MEDS ORDERED: VANCOMYCIN TROUGH DUE 1 EACH MISC MISCELLANE ONE (11:00)
--- NOTE | 2020-07-08 11:00 | P.STRESS ---
- Stress Test Note Stress Test Results/Findings: Exam Performed: NM stress lexiscan cardiolite Exam Date: 07/08/20 Reason for Exam: PRE-OP CLEARANCE Height: 6 ft 3 in Weight: 77.11 kg Protocol: LEXISCAN CARDIOLITE Stage: NA Duration of Exercise: NA Resting Heart Rate: 74 Resting Blood Pressure: 144/81 Maximum Achieved Heart Rate: 97 Maximum Achieved Blood Pressure: 169/84 85% PMHR: 139 100% PMHR: 163 METS: NA Technologist Comment: Stress Test Results/Findings: This is a 59-year-old gentleman with history of hypertension smoking history and peripheral vascular disease being evaluated as a preop procedure for upcoming vascular surgery. Stress data: Baseline EKG showed a sinus rhythm with normal MT interval and QRS duration. Blood pressure at rest is 144/81 with pulse rate of 74. A stent was of Lexiscan was infused. Patient developed a diffuse ST-T changes with ST depression noted in the inferior and also anterolateral wall of about half a millimeter. Did not express any chest pain. Final impression #1. This Lexiscan stress test showed changes size to of ischemia #2. Patient did not experience any chest pain #3. Report of the nuclear images to be given by the radiologist.
--- NOTE | 2020-07-08 11:23 | NM ---
EXAMINATION TYPE: NM stress lexiscan cardiolite DATE OF EXAM: 07/08/2020 COMPARISON: NONE HISTORY: Cardiac clearance, peripheral vascular occlusive disease TECHNIQUE: After the intravenous administration of 9.9 mCi Tc 99m Sestamibi - Cardiolite resting SPE CT images acquired 45 minutes post injection. The patient received 0.4mg Lexiscan, 25.7 mCi Tc 99m Sestamibi - Stress images obtained [address] injection FINDINGS: Review of stress and rest SPECT images demonstrates no distinct perfusion abnormality. Gated analysi s shows normal wall motion with an estimated left ventricular ejection fraction of 57 %. IMPRESSION: No scintigraphic evidence for reversible ischemia.
--- NOTE | 2020-07-08 12:02 | P.PN ---
Subjective Progress Note Date: 07/08/20 Principal diagnosis: Right lower extremity wounds, peripheral arterial disease Patient seen and examined. No acute changes through the night. He underwent a stress test today, eating final recommendations from cardiology for clearance for surgery Saturday. Objective - Vital Signs Vital signs: Vital Signs Temp 98.5 F 07/08/20 07:00 Pulse 73 07/08/20 08:00 Resp 18 07/08/20 08:00 BP 154/74 07/08/20 07:00 Pulse Ox 96 07/08/20 07:00 Intake & Output 07/07/20 07/08/20 07/08/20 18:59 06:59 18:59 Output Total 500 Balance -500 Weight 77.111 kg Output: Urine 500 Other: Voiding Method Self-Catheterization Self-Catheterization Self-Catheterization # Voids 1 2 - Exam General appearance: The patient is alert, oriented, in no acute distress. HET: Head is normocephalic and atraumatic. Neck: Supple without lymphadenopathy. Trachea midline. Heart: S1 S2. Regular rate and rhythm. Lungs: No crackles or wheezes are heard. Abdomen: Soft, nontender, nondistended. Extremities: Left lower extremity with low the knee amputation, Positive femoral doppler signal. Palpable right femoral pulse, Doppler signal of the right popliteal and posterior tibialis, unable to obtain Doppler signal of the right dorsalis pedis. He has multiple wounds on his right lower extremity including the medial aspect of the right ankle, lateral aspect of the ankle up to the smith with redness, unstageable wound on the right heel, and necrotic tissue to the lateral plantar aspect of the right foot. Neurological: Paraplegic. Alert and oriented 3. - Labs CBC & Chem 7: 07/05/20 22:03 07/07/20 08:11 Labs: Microbiology - Last 24 Hours (Table) 07/07/20 18:05 Gram Stain - Preliminary Buttock Wound Culture - Preliminary 07/07/20 18:05 Anaerobic Culture - Preliminary Buttock 07/05/20 21:45 Blood Culture - Preliminary Blood No Growth after 48 hours 07/05/20 22:00 Blood Culture - Preliminary Blood No Growth after 48 hours Assessment and Plan Assessment: 1. Occlusion of the right femoral artery 2. Aortoiliac occlusive disease 3. Chronic wounds to the right lower extremity 4. Hyperlipidemia 5. Hypertension 6. Paraplegia 7. Nicotine dependence 8. History of left [id number] amputation Plan: 1. Supportive care 2. Continue IV antibiotics as ordered 3. Await cardiology recommendations for cardiac clearance for right lower extremity revascularization 4. Infectious disease, Dr. Darby for local wound care 5. Plan for right lower extremity revascularization on Saturday 6. Recommend outpatient consultation with Plastic Surgeon Thank you for this consultation, we will continue to follow with you closely. The impression and plan of care has been dictated as directed. Dr. Ramirez I performed a history and examination of this patient, discussed the same with the dictator. I agree with the dictator's note ,documented as a scribe. Any additional findings or plans will be noted.
[2020-07-08] MEDS: VANCOMYCIN 1,500 MG in SODIUM CHLORIDE 0.9% 250 ML IVPB SCH (13:14)
[2020-07-08 14:18] LABS: African American GFR (CKD) 129.4 (60.0-200.0); Non-African American GFR(CKD) 111.6 (60.0-200.0)
[2020-07-08] MEDS ORDERED: IV FLUID CONTINUATION 1,000 ML IV ONE ×2 (14:37→15:25)
--- NOTE | 2020-07-08 14:39 | P.PN ---
Subjective Progress Note Date: 07/08/20 Jaziel Taylor is a 59 yo M with PMH of paraplegia, previous history of sacral wound with flap reconstruction, recent admission for sacral wound who presented to the ED complaining of fever, weakness and worsening drainage from RLE wound and sacral wound. [facility] and completed his course last week. He has been noticing He states he is numb from his chest down, recently had a fall from his wheelchair where he landed on his sacrum and developed an injury/sacral wound. He also noted swelling of his R knee at that time. Pt states his sacral wound has drainged more and developed foul smell over the past week. He states he is aware this leg will take months if not years to heal and he would prefer an amputation. 07/07/2020 Maintained on Unasyn and vancomycin. Afebrile. Patient reporting frustration, requesting amputation. Evaluated by vascular surgery, amputation not recommended at this time -recommending revascularization of right lower extremity .Denies pain.denies chest pain, palpitations or shortness of breath. Vital signs stable, maintaining O2 sats in the high 90s on room air . 07/08/2020 denies chest pain, palpitations or shortness of breath. Denies pain. Denies chills. Scheduled for Lexiscan today with cardiology. Vascular surgery on Saturday as previously mentioned. Continues on antibiotics as per ID. Afebrile. Wound cultures pending. Scheduled for debridement of right gluteal ulcer with surgery today. Objective - Vital Signs Vital signs: Vital Signs Temp 98.5 F 07/08/20 07:00 Pulse 73 07/08/20 08:00 Resp 18 07/08/20 08:00 BP 154/74 07/08/20 07:00 Pulse Ox 96 07/08/20 07:00 Intake & Output 07/07/20 07/08/20 07/08/20 18:59 06:59 18:59 Output Total 500 Balance -500 Weight 77.111 kg 77.11 kg Output: Urine 500 Other: Voiding Method Self-Catheterization Self-Catheterization Self-Catheterization # Voids 1 2 - Exam General: Lying in bed, NAD. Vitals reviewed Eyes: PERRL, EOMI, conjunctiva normal HENT: normocephalic, mucus membranes moist Neck: supple, no JVD Lungs: normal respiratory effort, no wheezes or rales CV: Regular rate and rhythm, no murmur. Peripheral pulses 2+ Abdomen: soft, nondistended, no organomegaly Lymph: no cervical or axillary LAD Skin: warm and dry. L AKA. RLE with multiple wounds, necrotic tissue/dressing clean dry and intact. Right gluteal ulcer dressing clean dry and intact-refer to nursing pictures. Neuro: A&Ox3, normal mood and affect Microbiology 07/07/20 18:05 Buttock Gram Stain - Preliminary 07/07/20 18:05 Buttock Wound Culture - Preliminary 07/07/20 18:05 Buttock Anaerobic Culture - Preliminary 07/05/20 21:45 Blood Blood Culture - Preliminary No Growth after 48 hours 07/05/20 22:00 Blood Blood Culture - Preliminary No Growth after 48 hours - Labs CBC & Chem 7: 07/05/20 22:03 07/08/20 06:22 Labs: Microbiology - Last 24 Hours (Table) 07/07/20 18:05 Gram Stain - Preliminary Buttock Wound Culture - Preliminary 07/07/20 18:05 Anaerobic Culture - Preliminary Buttock 07/05/20 21:45 Blood Culture - Preliminary Blood No Growth after 48 hours 07/05/20 22:00 Blood Culture - Preliminary Blood No Growth after 48 hours Assessment and Plan Assessment: (1) Infected woundcellulitis and wet gangrene of right foot, vascular and infectious disease following Current Visit: Yes Status: Acute Code(s): T14.8XXA - OTHER INJURY OF UNSPECIFIED BODY REGION, INITIAL ENCOUNTER; L08.9 - LOCAL INFECTION OF THE SKIN AND SUBCUTANEOUS TISSUE, UNSP SNOMED Code(s): 88675778 (2) Essential hypertension Current Visit: No Status: Acute Code(s): I10 - ESSENTIAL (PRIMARY) HYPERTENSION SNOMED Code(s): 23436259 (3) Stage 4 skin ulcer of sacral region Current Visit: No Status: Acute Code(s): L98.429 - NON-PRESSURE CHRONIC ULCER OF BACK WITH UNSPECIFIED SEVERITY SNOMED Code(s): 97869039 (4) Vascular disease Current Visit: No Status: Acute Code(s): I99.9 - UNSPECIFIED DISORDER OF CIRCULATORY SYSTEM SNOMED Code(s): 85049830 (5) Wound of right buttock Current Visit: No Status: Acute Code(s): S31.819A - UNSPECIFIED OPEN WOUND OF RIGHT BUTTOCK, INITIAL ENCOUNTER SNOMED Code(s): 540603290 (6) Occlusion of right femoral artery Current Visit: Yes Status: Acute Code(s): I70.201 - UNSP ATHSCL [place] ARTERIES OF EXTREMITIES, RIGHT LEG SNOMED Code(s): 74526622545715635 (7) Paraplegia (8) peripheral vascular disease Plan: Continue on current medication regime ,monitoring and symptomatic treatment. Debridement of right gluteal ulcer today. IV antibiotics/local wound care as per infectious disease. Close monitoring of renal function with repeat labs in a.m. Evaluated by infectious disease with right lower extremity revascularization scheduled for Saturday. Stress test pending. Prognosis guarded given multiple complex medical issues. The impression and plan of care has been dictated as directed. : I performed a history and examination of this patient, discussed the same with the dictator. I agree with the dictator's note ,documented as a scribe. Any additional findings or plans will be noted.
[2020-07-08] MEDS ORDERED: KETAMINE 10 MG/ML 20 ML VIAL ONE (14:50)
[2020-07-08] MEDS ORDERED: fentaNYL (PF) 50 MCG/ML 2 ML AMP ONE (14:50)
[2020-07-08] MEDS ORDERED: MIDAZOLAM 2 MG/2 ML VIAL ONE (14:50)
[2020-07-08] MEDS ORDERED: LABETALOL 5 MG/ML VIAL MDV ONE (14:50)
[2020-07-08] MEDS ORDERED: PROPOFOL 10 MG/ML 20 ML VIAL IV ONE (14:50)
[2020-07-08] MEDS ORDERED: BUPIVACAINE (PF) 0.25% 30 ML VIAL SQ ONE (15:05)
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
--- NOTE | 2020-07-08 15:32 | P.OP ---
Date of Procedure: 07/08/20 Procedure(s) Performed: PREOPERATIVE DIAGNOSIS: Right gluteal decubitus ulcer POSTOPERATIVE DIAGNOSIS: Same PROCEDURE: Debridement right gluteal decubitus ulcer SURGEON: Merlin EBL: 5 mL ANESTHESIA: Local plus sedation COMPLICATIONS: None OPERATIVE PROCEDURE: Patient kept on his stretcher for the procedure. He was placed in the left decubitus position. The patient had a 5 x 5 cm wound with tunneling superiorly and inferiorly. There was some fibropurulent exudate scattered around the wound. The right gluteal wound was debrided in an excisional manner sharply with a scalpel. Both subcutaneous fat and muscle was debrided. The bone appeared less friable than previously. There were no abscess collections identified. Deep cultures were obtained. Wound size did not change significantly. Wound was packed with lightly moistened Kerlix roll. DISPOSITION: Stable
--- NOTE | 2020-07-08 16:07 | PN ---
PROGRESS NOTE DATE OF SERVICE: 07/08/2020 REASON FOR FOLLOWUP: 1. Right ischemic foot ulceration. 2. Left gluteal pressure ulcer. INTERVAL HISTORY: The patient is currently afebrile. The patient is breathing comfortably. Patient denies having any chest pain, shortness of breath or cough. No abdominal pain or any diarrhea. PHYSICAL EXAMINATION: Blood pressure 165/81 with a pulse of 72, temperature is 97.7. He is 99% on room air. General description is a middle-aged male lying in bed in no distress. RESPIRATORY SYSTEM: Unlabored breathing, clear to auscultation anteriorly. HEART: S1, S2. Regular rate and rhythm. ABDOMEN: Soft, no tenderness. Wounds are currently dressed up. No obvious drainage on the dressing. LABS: Creatinine 0.6. Vancomycin trough 17.3. DIAGNOSTIC IMPRESSION AND PLAN: 1. Patient admitted to the hospital with right gluteal pressure ulcer stage IV nonhealing. Waiting for surgical debridement and deep cultures. 2. Right foot ischemic changes. Waiting for vascular workup. Patient is covered with Unasyn and vancomycin. Continue supportive care. MMODL / IJN: [id number] /
[2020-07-08] MEDS: ATORVASTATIN 40 MG TAB PO SCH (20:37)
[2020-07-09] MEDS: VANCOMYCIN 1,500 MG in SODIUM CHLORIDE 0.9% 250 ML IVPB SCH ×2 (00:02→13:37)
[2020-07-09] MEDS: AMPICILLIN-SULBACTAM 3 GM in SODIUM CHLORIDE 0.9% 100 ML IVPB SCH ×4 (02:07→20:54)
[2020-07-09] MEDS: SODIUM CHLORIDE 0.9% 1,000 ML IV SCH ×3 (04:00→22:51)
[2020-07-09] MEDS: ASPIRIN 81 MG PO SCH (09:14)
[2020-07-09] MEDS: diazePAM 5 MG TAB PO SCH ×4 (09:15→21:03)
[2020-07-09] MEDS: METOPROLOL TARTRATE 25 MG TAB PO SCH ×2 (09:15→20:55)
[2020-07-09] MEDS: BACLOFEN 10 MG TAB PO SCH ×4 (09:15→20:55)
[2020-07-09 11:31] LABS: African American GFR (CKD) 114.9 (60.0-200.0); Anion Gap 10.7 mmol/L (4.00-12.00); Calcium 8.1 mg/dL (8.7-10.3); Carbon Dioxide 23.3 mmol/L (21.6-31.8); Non-African American GFR(CKD) 99.2 (60.0-200.0); Potassium 4.9 mmol/L (3.5-5.5)
[2020-07-09 12:17] LABS: Basophils % (A) 0 %; Eosinophils # (A) 0.1 k/uL (0-0.7); Eosinophils % (A) 1 %; HCT 27.6 % (39.0-53.0); HGB 9.3 gm/dL (13.0-17.5); Lymphocytes # (A) 1.5 k/uL (1.0-4.8); Lymphocytes % (A) 15 %; MCH 30.1 pg (25.0-35.0); MCHC 33.6 g/dL (31.0-37.0); MCV 89.8 fL (80.0-100.0); Mean Platelet Volume 6.8; Monocytes # (A) 0.4 k/uL (0-1.0); Monocytes % (A) 4 %; Neutrophils # (A) 7.8 k/uL (1.3-7.7); Neutrophils % (A) 79 %; Platelet Count 534 k/uL (150-450); RBC 3.08 m/uL (4.30-5.90); WBC 9.9 k/uL (3.8-10.6)
[2020-07-09] MEDS ORDERED: DOCUSATE 100 MG CAP PO PRN (12:28)
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
--- NOTE | 2020-07-09 18:25 | PN ---
PROGRESS NOTE DATE OF SERVICE: 07/09/2020 REASON FOR FOLLOWUP: Right gluteal infected pressure ulcer. INTERVAL HISTORY: Patient is currently afebrile. The patient is status post debridement of the right gluteal pressure ulcer. Culture and drainage currently planning. The patient denies having any chest pain. No shortness of breath, cough, no abdominal pain. No diarrhea. PHYSICAL EXAMINATION: Blood pressure 154/77, pulse of 71, temperature 98.2. He is 99% on room air. General description is a middle-aged male lying in bed in no distress. Respiratory system: Unlabored breathing, clear to auscultation anteriorly. Heart S1, S2. Regular rate and rhythm. Abdomen soft, no tenderness. Wounds are currently dressed up. LABS: Hemoglobin 9.1, white count 9.9. Cultures now showing MRSA. DIAGNOSTIC IMPRESSION AND PLAN: 1. Patient with right gluteal pressure ulcer status post debridement. Previous culture positive for E coli and MRSA. This culture now showing MRSA. The patient is covered with vancomycin and Unasyn that will be continued. He will likely need a PICC line and outpatient antibiotic. 2. Patient with right foot multiple ischemic lesions. Vascular surgery working on those, to continue current care and monitor clinical course closely. MMODL / IJN: [id number] /
[2020-07-09] MEDS: ATORVASTATIN 40 MG TAB PO SCH (20:55)
--- NOTE | 2020-07-09 22:28 | P.PN ---
Subjective Progress Note Date: 07/09/[address] Adler over the weekend Jaziel Taylor is a 59 yo M with PMH of paraplegia, previous history of sacral wound with flap reconstruction, recent admission for sacral wound who presented to the ED complaining of fever, weakness and worsening drainage from RLE wound and sacral wound. He was just discharged from [facility] on oral flagyl and completed his course last week. He has been noticing He states he is numb from his chest down, recently had a fall from his wheelchair where he landed on his sacrum and developed an injury/sacral wound. He also noted swelling of his R knee at that time. Pt states his sacral wound has drainged more and developed foul smell over the past week. He states he is aware this leg will take months if not years to heal and he would prefer an amputation. Evaluated by vascular surgery, amputation not recommended at this time -recommending revascularization of right lower extremity and he had Lexiscan done with cardiology. Vascular surgery on Saturday as previously mentioned. He had debridement of right gluteal ulcer with surgery yesterday. On 07/09/2020 -patient was seen and examined at the bedside. He has no active complaints. He denied having any chest pain or palpitations. No cough or difficulty in breathing. He states that he has mild abdominal discomfort and feels like that he would have a bowel movement. On reviewing the vitals T-max 98.4, heart rate 77, respiratory 16, blood pressure 170 x 86 saturating at 97% on room air. Reviewing his labs white count of 9.9, hemoglobin 9.3, platelets 534. Sodium 143, potassium 4.9, chloride 109, bicarb 23, BUN 8, creatinine 0.6. Active Medications Hydrocodone Bitart/Acetaminophen (Hydrocodone/Apap 10-325mg 1 Each Tab) 1 each PO Q6H PRN PRN Reason: Pain Aspirin (Aspirin 81 Mg) 81 mg PO DAILY [facility] Last Admin: 07/09/20 09:14 Dose: 81 mg Documented by: Atorvastatin Calcium (Atorvastatin 40 Mg Tab) 40 mg PO HS [facility] Last Admin: 07/09/20 20:55 Dose: 40 mg Documented by: Baclofen (Baclofen 10 Mg Tab) 20 mg PO QID [facility] Last Admin: 07/09/20 20:55 Dose: 20 mg Documented by: Diazepam (Diazepam 5 Mg Tab) 10 mg PO QID [facility] Last Admin: 07/09/20 21:03 Dose: 10 mg Documented by: Docusate Sodium (Docusate 100 Mg Cap) 100 mg PO BID PRN PRN Reason: Constipation Sodium Chloride (Saline 0.9%) 1,000 mls @ 100 mls/hr IV .Q10H [facility] Last Admin: 07/09/20 16:20 Dose: 100 mls/hr Documented by: Vancomycin HCl 1,500 mg/ (Sodium Chloride) 250 mls @ 125 mls/hr IVPB Q12H [facility] Last Admin: 07/09/20 13:37 Dose: 125 mls/hr Documented by: Ampicillin Sodium/Sulbactam (Sodium 3 gm/ Sodium Chloride) 100 mls @ 200 mls/hr IVPB Q6H [facility] Last Admin: 07/09/20 20:54 Dose: 200 mls/hr Documented by: Metoprolol Tartrate (Metoprolol Tartrate 25 Mg Tab) 25 mg PO BID [facility] Last Admin: 07/09/20 20:55 Dose: 25 mg Documented by: Morphine Sulfate (Morphine Sulfate 4 Mg/Ml Syringe) 4 mg IV Q4HR PRN PRN Reason: Severe Pain Naloxone HCl (Naloxone 0.4 Mg/Ml 1 Ml Vial) 0.2 mg IV Q2M PRN PRN Reason: Opioid Reversal Ondansetron HCl (Ondansetron 4 Mg/2 Ml Vial) 4 mg IVP Q8HR PRN PRN Reason: Nausea And Vomiting Objective - Vital Signs Vital signs: Vital Signs Temp 98.4 F 07/09/20 07:00 Pulse 77 07/09/20 07:00 Resp 16 07/09/20 08:00 BP 170/86 07/09/20 07:00 Pulse Ox 97 07/09/20 02:15 Intake & Output 07/08/20 07/09/20 07/09/20 18:59 06:59 18:59 Intake Total 880 550 Output Total 505 600 300 Balance 375 -50 -300 Weight 77.11 kg Intake: IV 700 10 Invasive Line 4 10 Oral 180 540 Output: Urine 500 600 300 Estimated Blood Loss 5 Other: Voiding Method Self-Catheterization Self-Catheterization Self-Catheterization # Voids 1 - Exam General: Lying in bed, NAD. Eyes: PERRL, EOMI, conjunctiva normal HENT: normocephalic, mucus membranes moist Neck: supple, no JVD Lungs: normal respiratory effort, no wheezes or rales CV: Regular rate and rhythm, no murmur. Peripheral pulses 2+ Abdomen: soft, nondistended, no organomegaly Lymph: no cervical or axillary LAD Skin: warm and dry. Left AKA. RLE with multiple wounds, necrotic t issue/dressing clean dry and intact. Stage 4 sacral decubits with packing in place. Neuro: A&Ox3, normal mood and affect - Labs CBC & Chem 7: 07/09/20 11:51 07/09/20 08:29 Labs: Abnormal Lab Results - Last 24 Hours (Table) 07/09/20 07/09/20 Range/Units 08:29 11:51 RBC 3.08 L (4.30-5.90) m/uL Hgb 9.3 L (13.0-17.5) gm/dL Hct 27.6 L (39.0-53.0) % Plt Count 534 H (150-450) k/uL Neutrophils # 7.8 H (1.3-7.7) k/uL BUN 8.0 L (9.0-27.0) mg/dL BUN/Creatinine Ratio 10.00 L (12.00-20.00) Ratio Calcium 8.1 L (8.7-10.3) mg/dL Microbiology - Last 24 Hours (Table) 07/08/20 15:15 Gram Stain - Preliminary Buttock Wound Culture - Preliminary 07/05/20 21:45 Blood Culture - Preliminary Blood No Growth after 72 hours 07/05/20 22:00 Blood Culture - Preliminary Blood No Growth after 72 hours 07/08/20 15:15 Anaerobic Culture - Preliminary Buttock 07/07/20 18:05 Gram Stain - Preliminary Buttock Wound Culture - Preliminary Presumptive MRSA Assessment and Plan Assessment: ASSESSMENT Right foot cellulitis/wet gangrene Hypertension Stage IV sacral decubitus ulcers Right buttock ulcer Right femoral artery occlusion Paraplegia Peripheral vascular disease Hypertension History of left [id number] amputation Nicotine dependence Hyperlipidemia Neurogenic bladder PLAN: Patient is being followed by multiple consultants including cardiology, vascular, general surgery ID. He is on antibiotics in the form of Unasyn and vancomycin as per ID recommendations. He had debridement of the right gluteal decubitus ulcer done yesterday by Dr. Mane. Preoperative evaluation he got a stress test done. He is tentatively scheduled for revascularization of right lower extremity by vascular surgery on Saturday. Continue with the current medication regimen and further recommendations on the progress of the patient.
[2020-07-10] MEDS: AMPICILLIN-SULBACTAM 3 GM in SODIUM CHLORIDE 0.9% 100 ML IVPB SCH ×4 (02:29→21:19)
[2020-07-10] MEDS: HYDROcodone/APAP 10-325MG 1 EACH TAB PO PRN (03:25)
[2020-07-10] MEDS: diazePAM 5 MG TAB PO SCH ×4 (08:14→21:25)
[2020-07-10] MEDS: ASPIRIN 81 MG PO SCH (08:15)
[2020-07-10] MEDS: SODIUM CHLORIDE 0.9% 1,000 ML IV SCH ×2 (08:15→19:28)
[2020-07-10] MEDS: BACLOFEN 10 MG TAB PO SCH ×4 (08:15→21:20)
[2020-07-10] MEDS: METOPROLOL TARTRATE 25 MG TAB PO SCH ×2 (08:15→21:19)
--- NOTE | 2020-07-10 10:05 | P.PN ---
Subjective Progress Note Date: 07/10/20 Patient seen and examined. No complaints. Objective - Vital Signs Vital signs: Vital Signs Temp 98.2 F 07/10/20 07:00 Pulse 77 07/10/20 07:43 Resp 16 07/10/20 07:43 BP 135/67 07/10/20 07:00 Pulse Ox 97 07/10/20 07:00 Intake & Output 07/09/20 07/10/20 07/10/20 18:59 06:59 18:59 Intake Total 540 Output Total 300 450 450 Balance -300 -450 90 Intake: Oral 540 Output: Urine 300 450 450 Other: Voiding Method Self-Catheterization Urinal Urinal Self-Catheterization Self-Catheterization # Voids 1 # Bowel Movements 2 2 - Exam Genitals a pleasant cooperative male resting in bed with his blankets covering his face upon entry of the room. A changes no cephalic atraumatic. Heart is regular this time. Lungs are clear. Abdomen is soft he recently underwent surgical excision and debridement of his sacral wound. Dressing is clean, dry and intact left lower extremity above-knee amputation in place. Right lower extremity unchanged from previous - Labs CBC & Chem 7: 07/09/20 11:51 07/09/20 08:29 Labs: Abnormal Lab Results - Last 24 Hours (Table) 07/09/20 07/09/20 Range/Units 08:29 11:51 RBC 3.08 L (4.30-5.90) m/uL Hgb 9.3 L (13.0-17.5) gm/dL Hct 27.6 L (39.0-53.0) % Plt Count 534 H (150-450) k/uL Neutrophils # 7.8 H (1.3-7.7) k/uL BUN 8.0 L (9.0-27.0) mg/dL BUN/Creatinine Ratio 10.00 L (12.00-20.00) Ratio Calcium 8.1 L (8.7-10.3) mg/dL Microbiology - Last 24 Hours (Table) 07/07/20 18:05 Gram Stain - Final Buttock Wound Culture - Final Methicillin resist S. aureus 07/05/20 21:45 Blood Culture - Preliminary Blood No Growth after 96 hours 07/05/20 22:00 Blood Culture - Preliminary Blood No Growth after 96 hours 07/07/20 18:05 Anaerobic Culture - Preliminary Buttock 07/08/20 15:15 Gram Stain - Preliminary Buttock Wound Culture - Preliminary Assessment and Plan Assessment: Right femoral artery occlusion Aortoiliac occlusive disease Chronic wounds of the right lower extremity Paraplegia Sacral ulceration Hypertension Hyperlipidemia Nicotine dependence Plan: Continue supportive care. Nothing by mouth after midnight. Plan for femoral endarterectomy with Dr. Velasquez 07/11/2020 patient seemingly understands and in agreement. All questions answered.
[2020-07-10] MEDS: VANCOMYCIN 1,500 MG in SODIUM CHLORIDE 0.9% 250 ML IVPB SCH ×3 (13:27)
--- NOTE | 2020-07-10 15:23 | P.PN ---
Subjective Progress Note Date: 07/10/20 Principal diagnosis: Right foot cellulitis/wet gangrene Covering for DR. Adler over the weekend Jaziel Taylor is a 59 yo M with PMH of paraplegia, previous history of sacral wound with flap reconstruction, recent admission for sacral wound who presented to the ED complaining of fever, weakness and worsening drainage from RLE wound and sacral wound. He was just discharged from [facility] on oral flagyl and completed his course last week. He has been noticing He states he is numb from his chest down, recently had a fall from his wheelchair where he landed on his sacrum and developed an injury/sacral wound. He also noted swelling of his R knee at that time. Pt states his sacral wound has drainged more and developed foul smell over the past week. He states he is aware this leg will take months if not years to heal and he would prefer an amputation. Evaluated by vascular surgery, amputation not recommended at this time -recommending revascularization of right lower extremity and he had Lexiscan done with cardiology. Vascular surgery on Saturday as previously mentioned. He had debridement of right gluteal ulcer with surgery yesterday. On 07/09/2020 -patient was seen and examined at the bedside. He has no active complaints. He denied having any chest pain or palpitations. No cough or difficulty in breathing. He states that he has mild abdominal discomfort and feels like that he would have a bowel movement. On reviewing the vitals T-max 98.4, heart rate 77, respiratory 16, blood pressure 170 x 86 saturating at 97% on room air. Reviewing his labs white count of 9.9, hemoglobin 9.3, platelets 534. Sodium 143, potassium 4.9, chloride 109, bicarb 23, BUN 8, creatinine 0.6. On 07/02/2020 - patient is seen and examined at the bedside. He has no active complaints. He denies any chest pain or palpitations. He denies having any abdominal pain nausea vomiting or diarrhea. No dysuria or hematuria. On reviewing the vitals temperature of 98.5, heart rate 80, respiratory 22, blood pressure 184% 91, saturating at 97% on room air. No new labs from this morning. Active Medications Hydrocodone Bitart/Acetaminophen (Hydrocodone/Apap 10-325mg 1 Each Tab) 1 each PO Q6H PRN PRN Reason: Pain Last Admin: 07/10/20 03:25 Dose: 0.5 each Documented by: Aspirin (Aspirin 81 Mg) 81 mg PO DAILY [facility] Last Admin: 07/10/20 08:15 Dose: 81 mg Documented by: Atorvastatin Calcium (Atorvastatin 40 Mg Tab) 40 mg PO HS [facility] Last Admin: 07/09/20 20:55 Dose: 40 mg Documented by: Baclofen (Baclofen 10 Mg Tab) 20 mg PO QID [facility] Last Admin: 07/10/20 13:26 Dose: 20 mg Documented by: Dexamethasone Sodium Phosphate (Dexamethasone Sod Phosphate 4 Mg/Ml 1 Ml Vial) 4 mg IV ONCE PRN PRN Reason: PRE-OP Stop: 07/11/20 20:00 Diazepam (Diazepam 5 Mg Tab) 10 mg PO QID [facility] Last Admin: 07/10/20 13:26 Dose: 10 mg Documented by: Docusate Sodium (Docusate 100 Mg Cap) 100 mg PO BID PRN PRN Reason: Constipation Fentanyl Citrate (Fentanyl (Pf) 50 Mcg/Ml 2 Ml Amp) 50 mcg IV Q3M PRN PRN Reason: Pain Control Stop: 07/11/20 23:00 Hydromorphone HCl (Hydromorphone 0.5 Mg/0.5 Ml Syringe) 0.5 mg IVP Q5M PRN PRN Reason: Pain Control Stop: 07/11/20 23:00 Sodium Chloride (Saline 0.9%) 1,000 mls @ 100 mls/hr IV .Q10H [facility] Last Admin: 07/10/20 08:15 Dose: 100 mls/hr Documented by: Vancomycin HCl 1,500 mg/ (Sodium Chloride) 250 mls @ 125 mls/hr IVPB Q12H [facility] Last Admin: 07/10/20 13:27 Dose: 125 mls/hr Documented by: Ampicillin Sodium/Sulbactam (Sodium 3 gm/ Sodium Chloride) 100 mls @ 200 mls/hr IVPB Q6H [facility] Last Admin: 07/10/20 08:14 Dose: 200 mls/hr Documented by: Lactated Ringer's (Lactated Ringers) 1,000 mls @ 20 mls/hr IV .Q24H [facility] Metoprolol Tartrate (Metoprolol Tartrate 25 Mg Tab) 25 mg PO BID [facility] Last Admin: 07/10/20 08:15 Dose: 25 mg Documented by: Midazolam HCl (Midazolam 2 Mg/2 Ml Vial) 2 mg IV ONCE PRN PRN Reason: Anxiety Stop: 07/11/20 23:00 Morphine Sulfate (Morphine Sulfate 4 Mg/Ml Syringe) 4 mg IV Q4HR PRN PRN Reason: Severe Pain Naloxone HCl (Naloxone 0.4 Mg/Ml 1 Ml Vial) 0.2 mg IV Q2M PRN PRN Reason: Opioid Reversal Ondansetron HCl (Ondansetron 4 Mg/2 Ml Vial) 4 mg IVP Q8HR PRN PRN Reason: Nausea And Vomiting Objective - Vital Signs Vital signs: Vital Signs Temp 98.2 F 07/10/20 07:00 Pulse 77 07/10/20 12:02 Resp 16 07/10/20 12:02 BP 135/67 07/10/20 07:00 Pulse Ox 97 07/10/20 07:00 Intake & Output 07/09/20 07/10/20 07/10/20 18:59 06:59 18:59 Intake Total 540 Output Total 300 450 450 Balance -300 -450 90 Intake: Oral 540 Output: Urine 300 450 450 Other: Voiding Method Self-Catheterization Urinal Urinal Self-Catheterization Self-Catheterization # Voids 2 # Bowel Movements 2 2 - Exam PHYSICAL EXAM General: Lying in bed, NAD. Eyes: PERRL, EOMI, conjunctiva normal HENT: normocephalic, mucus membranes moist Lungs: normal respiratory effort, no wheezes or rales CV: Regular rate and rhythm, no murmur. Peripheral pulses 2+ Abdomen: soft, nondistended, no organomegaly Lymph: no cervical or axillary LAD Skin: warm and dry. Left AKA. RLE with multiple wounds, necrotic tissue/dressing clean dry and intact. Stage 4 sacral decubits with packing in place. Neuro: A&Ox3, normal mood and affect - Labs CBC & Chem 7: 07/09/20 11:51 07/09/20 08:29 Labs: Microbiology - Last 24 Hours (Table) 07/07/20 18:05 Gram Stain - Final Buttock Wound Culture - Final Methicillin resist S. aureus 07/05/20 21:45 Blood Culture - Preliminary Blood No Growth after 96 hours 07/05/20 22:00 Blood Culture - Preliminary Blood No Growth after 96 hours 07/07/20 18:05 Anaerobic Culture - Preliminary Buttock 07/08/20 15:15 Gram Stain - Preliminary Buttock Wound Culture - Preliminary Assessment and Plan Assessment: ASSESSMENT Right foot cellulitis/wet gangrene Hypertension Stage IV sacral decubitus ulcers Right buttock ulcer Right femoral artery occlusion Paraplegia Peripheral vascular disease Hypertension History of left [id number] amputation Nicotine dependence Hyperlipidemia Neurogenic bladder PLAN: Patient is being followed by multiple consultants including cardiology, vascular, general surgery ID. He is on antibiotics in the form of Unasyn and vancomycin as per ID recommendations. He had debridement of the right gluteal decubitus ulcer done on 07/08/[address] Mane. Preoperative evaluation he got a stress test done and it showed no evidence of reversible ischemia. He is tentatively scheduled for revascularization of right lower extremity by vascular surgery on Saturday. Continue with the current medication regimen. Dr. Adler's team to take over from tomorrow.
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
--- NOTE | 2020-07-10 19:41 | PN ---
PROGRESS NOTE DATE OF SERVICE: 06/14/2020. REASON FOR FOLLOWUP: 1. Right gluteal infected pressure ulcer with underlying osteomyelitis. 2. Right foot and leg ischemic ulceration. INTERVAL HISTORY: The patient is currently afebrile. The patient is breathing comfortably. Patient denies having any chest pain. No shortness of breath or cough. No abdominal pain. No diarrhea. Overall feeling better. PHYSICAL EXAMINATION: Blood pressure 167/78 with a pulse of 75, temperature 98.2. He is 93% on room air. General description: The patient is a middle-aged male lying in bed in no distress. Respiratory system: Unlabored breathing, clear to auscultation anteriorly. Heart S1, S2. Regular rate and rhythm. ABDOMEN: Soft, no tenderness. LABS: Hemoglobin is 9.9, white count 9.9, creatinine 0.8. Wound culture with MRSA. DIAGNOSTIC IMPRESSION AND PLAN: Patient with right gluteal pressure ulcer stage IV with underlying osteomyelitis in this patient status post debridement. We will wait for the overall culture to finalize, currently showing only MRSA. Patient is covered with vancomycin. The patient needs at least 6 weeks of IV vancomycin, pharmacy to dose. Local wound care to continue with wound VAC and continue supportive care. MMODL / IJN: [id number] /
[2020-07-10] MEDS: ATORVASTATIN 40 MG TAB PO SCH (21:20)
[2020-07-11] MEDS: VANCOMYCIN 1,500 MG in SODIUM CHLORIDE 0.9% 250 ML IVPB SCH ×3 (00:55→23:24)
[2020-07-11] MEDS: SODIUM CHLORIDE 0.9% 1,000 ML IV SCH ×3 (03:39→23:25)
[2020-07-11] MEDS: AMPICILLIN-SULBACTAM 3 GM in SODIUM CHLORIDE 0.9% 100 ML IVPB SCH ×4 (03:42→20:34)
[2020-07-11] MEDS: LACTATED RINGERS 1,000 ML IV SCH (05:19)
[2020-07-11] MEDS ORDERED: DEXAMETHASONE SOD PHOSPHATE 4 MG/ML 1 ML VIAL IV PRN (06:00)
[2020-07-11] MEDS ORDERED: HYDROmorphone 0.5 MG/0.5 ML SYRINGE IVP PRN (07:00)
[2020-07-11] MEDS ORDERED: fentaNYL (PF) 50 MCG/ML 2 ML AMP IV PRN (07:00)
[2020-07-11] MEDS ORDERED: MIDAZOLAM 2 MG/2 ML VIAL IV PRN (07:00)
[2020-07-11 08:01] LABS: African American GFR (CKD) >90 (>60 ml/min/1.73 sqM); C Reactive Protein 55.8 mg/L (<10.0); Non-African American GFR(CKD) >90 (>60 ml/min/1.73 sqM)
[2020-07-11] MEDS: ASPIRIN 81 MG PO SCH (08:05)
[2020-07-11] MEDS: diazePAM 5 MG TAB PO SCH ×4 (08:05→20:35)
[2020-07-11] MEDS: BACLOFEN 10 MG TAB PO SCH ×4 (08:05→20:35)
[2020-07-11] MEDS: METOPROLOL TARTRATE 25 MG TAB PO SCH ×2 (08:05→20:35)
[2020-07-11 10:16] LABS: Basophils % (A) 0 %; Eosinophils # (A) 0.2 k/uL (0-0.7); Eosinophils % (A) 1 %; HCT 31.4 % (39.0-53.0); Lymphocytes # (A) 1.9 k/uL (1.0-4.8); Lymphocytes % (A) 17 %; MCH 29.1 pg (25.0-35.0); MCHC 31.8 g/dL (31.0-37.0); MCV 91.6 fL (80.0-100.0); Mean Platelet Volume 7.6; Monocytes # (A) 0.4 k/uL (0-1.0); Monocytes % (A) 4 %; Neutrophils # (A) 8.3 k/uL (1.3-7.7); Neutrophils % (A) 76 %; Platelet Count 606 k/uL (150-450); RBC 3.43 m/uL (4.30-5.90); RDW 15.5 % (11.5-15.5); WBC 10.9 k/uL (3.8-10.6)
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
[2020-07-11] MEDS ORDERED: IV FLUID CONTINUATION 1,000 ML IV ONE (11:23)
[2020-07-11] MEDS ORDERED: MIDAZOLAM 2 MG/2 ML VIAL IVP ONE (12:06)
--- NOTE | 2020-07-11 12:13 | EST ---
Stress Test Results/Findings: Exam Performed: NM stress lexiscan cardiolite Exam Date: 07/08/20 Reason for Exam: PRE-OP CLEARANCE Height: 6 ft 3 in Weight: 77.11 kg Protocol: LEXISCAN CARDIOLITE Stage: NA Duration of Exercise: NA Resting Heart Rate: 74 Resting Blood Pressure: 144/81 Maximum Achieved Heart Rate: 97 Maximum Achieved Blood Pressure: 169/84 85% PMHR: 139 100% PMHR: 163 METS: NA Technologist Comment: Stress Test Results/Findings: This is a 59-year-old gentleman with history of hypertension smoking history and peripheral vascular disease being evaluated as a preop procedure for upcoming vascular surgery. Stress data: Baseline EKG showed a sinus rhythm with normal [place] interval and QRS duration. Blood pressure at rest is 144/81 with pulse rate of 74. A stent was of Lexiscan was infused. Patient developed a diffuse ST-T changes with ST depression noted in the inferior and also anterolateral wall of about half a millimeter. Did not express any chest pain. Final impression #1. This Lexiscan stress test showed changes size to of ischemia #2. Patient did not experience any chest pain #3. Report of the nuclear images to be given by the radiologist. CAMERON
[2020-07-11] MEDS ORDERED: LIDOCAINE 1% INJ 10MG/ML (20 ML MDV) ONE (12:44)
[2020-07-11] MEDS ORDERED: PHENYLEPHRINE-0.9% NACL SYG 1,000 MCG/10 ML SYRINGE ONE (12:44)
[2020-07-11] MEDS ORDERED: SUCCINYLCHOLINE CHLORIDE 100 MG/5 ML SYR IV ONE (12:44)
[2020-07-11] MEDS ORDERED: GLYCOPYRROLATE 0.2 MG/ML 2 ML VIAL ONE (12:44)
[2020-07-11] MEDS ORDERED: MIDAZOLAM 2 MG/2 ML VIAL ONE (12:44)
[2020-07-11] MEDS ORDERED: ROCURONIUM 10 MG/ML (5 ML VIAL) IV ONE (12:44)
[2020-07-11] MEDS ORDERED: HEPARIN SODIUM,PORCINE 10,000 UNIT/ML 1 ML VIAL ONE (12:44)
[2020-07-11] MEDS ORDERED: fentaNYL (PF) 50 MCG/ML 2 ML AMP ONE (12:44)
[2020-07-11] MEDS ORDERED: NEOSTIGMINE 1 MG/ML 10 ML VIAL ONE (12:44)
[2020-07-11] MEDS ORDERED: PROTAMINE SULFATE 10 MG/ML 5 ML VIAL IV ONE (12:44)
[2020-07-11] MEDS ORDERED: PROPOFOL 10 MG/ML 20 ML VIAL IV ONE (12:44)
[2020-07-11] MEDS ORDERED: HEPARIN SODIUM,PORCINE 10,000 UNIT in SODIUM CHLORIDE 0.9% 1,000 ML IRRIGATION ONE (13:50)
[2020-07-11] MEDS ORDERED: ceFAZolin 4 GM in SODIUM CHLORIDE 0.9% 1,000 ML IRRIGATION ONE (13:51)
[2020-07-11] MEDS ORDERED: GELATIN SPONGE,ABSORB (LARGE) 1 EACH SPONGE TOPICAL ONE (13:53)
[2020-07-11] MEDS ORDERED: THROMBIN (BOVINE) 5,000 UNIT VIAL TOPICAL ONE (13:54)
[2020-07-11] MEDS ORDERED: LACTATED RINGERS 1,000 ML IV ONE (14:42)
--- NOTE | 2020-07-11 16:02 | P.OP ---
Date of Procedure: 07/11/20 Preoperative Diagnosis: #1: High-grade right common femoral artery stenosis. #2: Nonhealing ulcerations right lower extremity Postoperative Diagnosis: Right iliofemoral stenosis. Procedure(s) Performed: Right distal iliac and common femoral thromboendarterectomy with patch angioplasty utilizing bovine pericardium. Anesthesia: MONETA Surgeon: Pola Ramirez Estimated Blood Loss (ml): 100 Condition: stable Disposition: no change Indications for Procedure: Patient is a 59-year-old male optimal medical problems who presented with nonhealing ulceration of the right lower extremity. It is been very difficult to get this patient to the operating room. He was finally admitted to the hospital and we were able to obtain preoperative cardiac clearance. He had undergone catheter based angiography which demonstrated a high-grade right common femoral artery stenosis with occlusion of the distal SFA. The patient's wounds have not opened and it was felt that by improving the inflow there should be enough arterial flow to the lower extremity to allow these wounds to heal. The procedure of an endarterectomy as well as risk and benefits were discussed. Patient wished to proceed. Description of Procedure: Patient was brought to the operating and placed in the supine position Mr. general endotracheal anesthesia delivered by the department anesthesiology. Carrillo catheter is placed to gravity drainage. The right lower abdominal quadrant right inguinal as well as a right anterior thigh area to the mid thigh level was sterilely prepped and draped in usual manner. Antibiotics were continued. Skin incision was made over the right inguinal area and carried down through the subcu change tissues. Hemostasis was achieved using electrocautery. Incision was deepened through subcu change tissues. Large lymph nodes were encountered and some were excised and sent to pathology. The incision was deepened through the subcutaneous tissues to the level of the femoral artery. The common femoral artery was identified. The origin of the profundus and superficial femoral arteries were encircled Vesseloops. Dissection was then carried cephalad. Heavy plaque burden was identified extending above the inguinal ligament. The inguinal ligament was partially divided allowing access to the distal external iliac artery. This artery was encircled Vesseloops. Side branches were were identified and these were also encircled Vesseloops. Patient was systemically heparinized. ACT is were drawn and heparin doses adjusted as needed. The [place] surrounding the superficial femoral and profundus femoris arteries were drawn closed. Clamp was placed on the distal external iliac artery. Arteriotomy was made in the common femoral artery extended inferiorly into the very proximal portion of the superficial femoral artery. It was then extended superiorly to the external iliac artery. Endarterectomy was then begun distally. Retraction endarterectomy was performed on the profundus. The endarterectomy plane extended to into the distal external iliac artery where the plaque tapered off. Plaque was sent to pathology. Remaining luminal surface was inspected for any loose or free-floating material and none was identified. Patch and plastic closure of the arteriotomy was performed with 5-0 Prolene suture placed in a running fashion and bovine pericardial patch. Just prior to completion of the anastomotic line the common femoral artery was flushed and no thrombus was retrieved. Good backbleeding through the profundus and superficial femoral arteries were is identified. The anastomotic line was then completed. Flow was restored through the common femoral artery into the profundus and then into the superficial femoral artery. 2 points of bleeding were identified along the anastomotic line and these were easily controlled with 6-0 Prolene suture. Excellent pulse was identified in both the profundus and superficial femoral arteries. The patient was administered 25 mg of protamine to reverse the heparin effect. The wound was irrigated with heparin saline solution. Hemostasis judged be adequate. It was once again irrigated with antibiotic containing solution. Deep tissues were closed in multiple layers with 2-0 Vicryl suture. Deep dermal sutures of 4-0 Vicryl followed by running intradermal suture of 4-0 Monocryl completed the wound closure. Skin glue was applied to the wound. Patient awoke without apparent complication and was transferred to the recovery area satisfactory and stable condition.
--- NOTE | 2020-07-11 16:06 | P.PN ---
Subjective Progress Note Date: 07/11/20 Jaziel Taylor is a 59 yo M with PMH of paraplegia, previous history of sacral wound with flap reconstruction, recent admission for sacral wound who presented to the ED complaining of fever, weakness and worsening drainage from RLE wound and sacral wound. He was just discharged [facility] on oral flagyl and completed his course last week. He has been noticing He states he is numb from his chest down, recently had a fall from his wheelchair where he landed on his sacrum and developed an injury/sacral wound. He also noted swelling of his R knee at that time. Pt states his sacral wound has drainged more and developed foul smell over the past week. He states he is aware this leg will take months if not years to heal and he would prefer an amputation. 07/07/2020 Maintained on Unasyn and vancomycin. Afebrile. Patient reporting frustration, requesting amputation. Evaluated by vascular surgery, amputation not recommended at this time -recommending revascularization of right lower extremity .Denies pain.denies chest pain, palpitations or shortness of breath. Vital signs stable, maintaining O2 sats in the high 90s on room air . 07/08/2020 denies chest pain, palpitations or shortness of breath. Denies pain. Denies chills. Scheduled for Lexiscan today with cardiology. Vascular surgery on Saturday as previously mentioned. Continues on antibiotics as per ID. Afebrile. Wound cultures pending. Scheduled for debridement of right gluteal ulcer with surgery today. 07/11/2020 Scheduled for a right femoral endarterectomy today with vascular surgery. Denies chest pain, palpitations or shortness of breath. Maintained on antibiotics as per ID, buttock wound culture reporting MRSA. Afebrile, WBC 10.9, sed rate 110. hemoglobin 10, platelets 606. Objective - Vital Signs Vital signs: Vital Signs Temp 97.6 F 07/11/20 11:40 Pulse 68 07/11/20 11:40 Resp 18 07/11/20 11:40 BP 152/85 07/11/20 11:40 Pulse Ox 98 07/11/20 11:40 Intake & Output 07/10/20 07/11/20 07/11/20 18:59 06:59 18:59 Intake Total 540 1451 Output Total 450 2060 950 Balance 90 -2060 501 Weight 77.11 kg Intake: IV 1451 Oral 540 Output: Urine 450 2059 850 Estimated Blood Loss 100 Other: Voiding Method Urinal Urinal Urinal Self-Catheterization Self-Catheterization Self-Catheterization # Voids 2 # Bowel Movements 2 - Exam General: Lying in bed, NAD. Eyes: PERRL, EOMI, conjunctiva normal HENT: normocephalic, mucus membranes dry. Neck: supple, no JVD Lungs: normal respiratory effort, no wheezes or rales CV: Regular rate and rhythm, no murmur. Peripheral pulses 2+ Abdomen: soft, nondistended, no organomegaly, Pos BS Skin: warm and dry. L AKA. RLE with multiple wounds,dressing clean dry and intact. Right gluteal ulcer dressing clean dry and intact. Neuro: A&Ox3, normal mood and affect Microbiology 07/05/20 21:45 Blood Blood Culture - Preliminary No Growth after 120 hours 07/05/20 22:00 Blood Blood Culture - Preliminary No Growth after 120 hours 07/08/20 15:15 Buttock Gram Stain - Final 07/08/20 15:15 Buttock Wound Culture - Final Methicillin resist S. aureus 07/07/20 18:05 Buttock Gram Stain - Final 07/07/20 18:05 Buttock Wound Culture - Final Methicillin resist S. aureus 07/07/20 18:05 Buttock Anaerobic Culture - Preliminary 07/08/20 15:15 Buttock Anaerobic Culture - Preliminary - Labs CBC & Chem 7: 07/11/20 09:58 07/11/20 06:54 Labs: Abnormal Lab Results - Last 24 Hours (Table) 07/11/20 07/11/20 07/11/20 Range/Units 06:54 06:54 09:58 WBC 10.9 H (3.8-10.6) k/uL RBC 3.43 L (4.30-5.90) m/uL Hgb 10.0 L (13.0-17.5) gm/dL Hct 31.4 L (39.0-53.0) % Plt Count 606 H (150-450) k/uL Neutrophils # 8.3 H (1.3-7.7) k/uL ESR 110 H (0-15) mm/hr C-Reactive Protein 55.8 H (<10.0) mg/L Microbiology - Last 24 Hours (Table) 07/05/20 21:45 Blood Culture - Preliminary Blood No Growth after 120 hours 07/05/20 22:00 Blood Culture - Preliminary Blood No Growth after 120 hours 07/08/20 15:15 Gram Stain - Final Buttock Wound Culture - Final Methicillin resist S. aureus Assessment and Plan Assessment: (1) Infected woundcellulitis and wet gangrene of right foot, vascular and infectious disease following Current Visit: Yes Status: Acute Code(s): T14.8XXA - OTHER INJURY OF UNSPECIFIED BODY REGION, INITIAL ENCOUNTER; L08.9 - LOCAL INFECTION OF THE SKIN AND SUBCUTANEOUS TISSUE, UNSP SNOMED Code(s): 48348123 (2) Essential hypertension Current Visit: No Status: Acute Code(s): I10 - ESSENTIAL (PRIMARY) HYPERTENSION SNOMED Code(s): 87028606 (3) Stage 4 skin ulcer of sacral region Current Visit: No Status: Acute Code(s): L98.429 - NON-PRESSURE CHRONIC ULCER OF BACK WITH UNSPECIFIED SEVERITY SNOMED Code(s): 60642136 (4) Vascular disease Current Visit: No Status: Acute Code(s): I99.9 - UNSPECIFIED DISORDER OF CIRCULATORY SYSTEM SNOMED Code(s): 42247108 (5) Wound of right buttock, status post debridement , cultures reporting MRSA Current Visit: No Status: Acute Code(s): S31.819A - UNSPECIFIED OPEN WOUND OF RIGHT BUTTOCK, INITIAL ENCOUNTER SNOMED Code(s): 030561471 (6) Occlusion of right femoral artery Current Visit: Yes Status: Acute Code(s): I70.201 - UNSP ATHSCL [place] ARTERIES OF EXTREMITIES, RIGHT LEG SNOMED Code(s): 37669247457609543 (7) Paraplegia (8) peripheral vascular disease Plan: Continue on current medication regime ,monitoring and symptomatic treatment. Scheduled for right femoral endarterectomy today with vascular surgery. Continue IV antibiotics/local wound care as per infectious disease. Close monitoring of renal function with repeat labs in a.m. Prognosis guarded given multiple complex medical issues. The impression and plan of care has been dictated as directed. : I performed a history and examination of this patient, discussed the same with the dictator. I agree with the dictator's note ,documented as a scribe. Any additional findings or plans will be noted.
[2020-07-11] MEDS: ATORVASTATIN 40 MG TAB PO SCH (20:35)
--- NOTE | 2020-07-12 00:07 | PN ---
PROGRESS NOTE DATE OF SERVICE: 07/11/2020 REASON FOR FOLLOWUP: 1. Left gluteal stage IV infected pressure ulcer. 2. Right leg ischemic changes. INTERVAL HISTORY: The patient is currently afebrile. The patient denies any chest pain, shortness of breath or cough. No nausea, no vomiting. No abdominal pain. No diarrhea. PHYSICAL EXAMINATION: Blood pressure 139/84, pulse 84, temperature 96, 99% on room air. General description: The patient is a middle-aged male lying in bed in no distress. Respiratory system: Unlabored breathing, clear to auscultation anteriorly. HEART: S1, S2. Regular rate and rhythm. ABDOMEN: Soft, no tenderness. Right lower extremity did have multiple black eschar, no significant redness. LABS: Hemoglobin is 10 with white count of 10.9. Sedimentation rate is 110 and 5.8. DIAGNOSTIC IMPRESSION AND PLAN: 1. Patient with right gluteal infected pressure ulcer stage IV. Culture with MRSA and anaerobes. Plan is for vancomycin, oral Flagyl for a total of 6 weeks. Local wound care with wound VAC. 2. Right lower extremity multiple ischemic black eschar status post angiogram and intervention today. 3. Continue care per Surgery. Continue supportive care. MMODL / IJN: [id number] /
[2020-07-12] MEDS: AMPICILLIN-SULBACTAM 3 GM in SODIUM CHLORIDE 0.9% 100 ML IVPB SCH ×4 (03:54→20:31)
[2020-07-12] MEDS: LACTATED RINGERS 1,000 ML IV SCH (06:01)
[2020-07-12] MEDS: BACLOFEN 10 MG TAB PO SCH ×4 (08:43→20:33)
[2020-07-12] MEDS: METOPROLOL TARTRATE 25 MG TAB PO SCH ×2 (08:43→20:32)
[2020-07-12] MEDS: ASPIRIN 81 MG PO SCH (08:43)
[2020-07-12] MEDS: diazePAM 5 MG TAB PO SCH ×4 (08:43→20:32)
--- NOTE | 2020-07-12 09:01 | P.PN ---
Subjective Progress Note Date: 07/12/20 Principal diagnosis: Right lower extremity wounds, peripheral arterial disease She was seen and examined lying in bed. He states he just has some soreness, no acute pain. He is postop day #1 for right iliac and common femoral thromboendarterectomy with patch angioplasty. No acute changes through the night, he is afebrile. Objective - Vital Signs Vital signs: Vital Signs Temp 98.0 F 07/12/20 07:00 Pulse 61 07/12/20 07:00 Resp 16 07/12/20 07:00 BP 131/73 07/12/20 07:00 Pulse Ox 98 07/12/20 07:00 Intake & Output 07/11/20 07/12/20 07/12/20 18:59 06:59 18:59 Intake Total 1651 Output Total 1450 750 Balance 201 -750 Weight 77.11 kg Intake: IV 1651 Output: Urine 1350 750 Estimated Blood Loss 100 Other: Voiding Method Urinal Urinal Urinal Self-Catheterization Self-Catheterization Self-Catheterization # Voids 1 - Exam General appearance: The patient is alert, oriented, in no acute distress. HET: Head is normocephalic and atraumatic. Neck: Supple without lymphadenopathy. Trachea midline. Abdomen: Soft, nontender, nondistended. Extremities: Left lower extremity with below the knee amputation, Positive femoral doppler signal. Right groin with dressing clean dry and intact, removed with incision well approximated with glue. No hematoma oted. Right femoral, popliteal, and posterior tibialis Doppler signal present. Unable to obtain Doppler signal of the right dorsalis pedis. He has multiple wounds on his right lower extremity including the medial aspect of the right ankle, lateral aspect of the ankle up to the smith with redness, unstageable wound on the right heel, a nd necrotic tissue to the lateral plantar aspect of the right foot. Neurological: Paraplegic. Alert and oriented 3. - Labs CBC & Chem 7: 07/12/20 05:35 07/12/20 05:35 Labs: Abnormal Lab Results - Last 24 Hours (Table) 07/11/20 07/11/20 Range/Units 06:54 09:58 WBC 10.9 H (3.8-10.6) k/uL RBC 3.43 L (4.30-5.90) m/uL Hgb 10.0 L (13.0-17.5) gm/dL Hct 31.4 L (39.0-53.0) % Plt Count 606 H (150-450) k/uL Neutrophils # 8.3 H (1.3-7.7) k/uL ESR 110 H (0-15) mm/hr Microbiology - Last 24 Hours (Table) 07/05/20 21:45 Blood Culture - Final Blood No Growth after 144 hours 07/05/20 22:00 Blood Culture - Final Blood No Growth after 144 hours 07/07/20 18:05 Anaerobic Culture - Final Buttock 07/08/20 15:15 Anaerobic Culture - Final Buttock Anaerobic Gm Negative Bacilli Assessment and Plan Assessment: 1. Post day #1 right distal iliac and common femoral artery thrombo-endarterec cookie with patch angioplasty 2. Occlusion of the right femoral artery 3. Aortoiliac occlusive disease 4. Chronic wounds to the right lower extremity 5. Hyperlipidemia 6. Hypertension 7. Paraplegia 8. Nicotine dependence 9. History of left [id number] amputation Plan: 1. Supportive care 2. He is status post right distal iliac and common femoral artery thrombo- endarterectomy with patch angioplasty 3. Continue IV antibiotics as ordered 4. Infectious disease, Dr. Darby for local wound care 5. Recommend outpatient consultation with Plastic Surgeon 6. Will need outpatient wound care 7. Patient may be discharged from a vascular surgical standpoint with follow-up with Dr. Velasquez in one week Thank you for this consultation, we will continue to follow with you closely. The impression and plan of care has been dictated as directed. Dr. Nagy I performed a history and examination of this patient, discussed the same with the dictator. I agree with the dictator's note ,documented as a scribe. Any additional findings or plans will be noted.
[2020-07-12 09:38] LABS: Basophils # (A) 0.03 X 10*3/uL (0.00-0.10); Basophils % (A) 0.3 %; Eosinophils # (A) 0.07 X 10*3/uL (0.04-0.35); Eosinophils % (A) 0.6 %; HCT 24.4 % (39.6-50.0); HGB 7.5 g/dL (13.0-17.0); Lymphocytes # (A) 2.36 X 10*3/uL (0.90-5.00); Lymphocytes % (A) 20.9 %; MCH 28.8 pg (27.0-32.0); MCHC 30.7 g/dL (32.0-37.0); MCV 93.8 fL (80.0-97.0); Mean Platelet Volume 9.8 fL (9.5-12.2); Monocytes # (A) 0.52 X 10*3/uL (0.20-1.00); Monocytes % (A) 4.6 %; Neutrophils # (A) 8.28 X 10*3/uL (1.80-7.70); Neutrophils % (A) 73.2 %; Platelet Count 521 X 10*3/uL (140-440); RDW 15.8 % (11.5-14.5); WBC 11.31 X 10*3/uL (4.50-10.00)
[2020-07-12 10:21] LABS: African American GFR (CKD) 114.9 (60.0-200.0); Anion Gap 7.5 mmol/L (4.00-12.00); BUN/Creat Ratio 17.5 Ratio (12.00-20.00); Calcium 7.6 mg/dL (8.7-10.3); Carbon Dioxide 25.5 mmol/L (21.6-31.8); Non-African American GFR(CKD) 99.2 (60.0-200.0)
[2020-07-12] MEDS ORDERED: VANCOMYCIN TROUGH DUE 1 EACH MISC MISCELLANE ONE (11:00)
--- NOTE | 2020-07-12 11:15 | P.DS ---
Providers Date of admission: 07/06/20 09:02 Expected date of discharge: 07/12/20 Attending physician: Darryn Adler MD Consults: 07/06/20 00:23 Consult Physician Routine Consulting Provider: Pola Ramirez Consult Reason/Comments: vascular pt, leg wounds Do you want consulting provider notified?: Yes Consult Physician Routine Consulting Provider: Archie Darby Consult Reason/Comments: infected wound wth vac-new fevers Do you want consulting provider notified?: Yes 07/06/20 12:29 Consult Physician Routine Consulting Provider: Irina Barragan Consult Reason/Comments: cardiac clearance for possible RLE revascularization vs amputation Do you want consulting provider notified?: Yes 07/07/20 15:44 Consult Physician Routine Consulting Provider: Matthew Boyer Consult Reason/Comments: right gluteal pressure ulcer, debridment and deep cultures Do you want consulting provider notified?: Yes Primary care physician: Desiree Nguyen [place] [facility] Course: Final Diagnoses: (1) Infected woundcellulitis and wet gangrene of right foot, vascular and infectious disease following Current Visit: Yes Status: Acute Code(s): T14.8XXA - OTHER INJURY OF UNSPECIFIED BODY REGION, INITIAL ENCOUNTER; L08.9 - LOCAL INFECTION OF THE SKIN AND SUBCUTANEOUS TISSUE, UNSP SNOMED Code(s): 52966317 (2) Essential hypertension Current Visit: No Status: Acute Code(s): I10 - ESSENTIAL (PRIMARY) HYPERTENSION SNOMED Code(s): 48717605 (3) Stage 4 pressure ulcer, right gluteal status post debridement, cultures reporting MRSA Current Visit: No Status: Acute Code(s): L98.429 - NON-PRESSURE CHRONIC ULCER OF BACK WITH UNSPECIFIED SEVERITY SNOMED Code(s): 44066753 Current Visit: No Status: Acute Code(s): S31.819A - UNSPECIFIED OPEN WOUND OF RIGHT BUTTOCK, INITIAL ENCOUNTER SNOMED Code(s): 719781969 (4) Peripheral Vascular disease with multiple chronic wounds including unstageable right heel Current Visit: No Status: Acute Code(s): I99.9 - UNSPECIFIED DISORDER OF CIRCULATORY SYSTEM SNOMED Code(s): 57427398 (5) Occlusion of right femoral artery, status post right iliac and common femoral thromboendarterectomy with patch angioplasty Current Visit: Yes Status: Acute Code(s): I70.201 - UNSP ATHSCL TANGIRNAQ ARTERIES OF EXTREMITIES, RIGHT LEG SNOMED Code(s): 35616913686333773 (6) Paraplegia Hospital course:Jaziel Taylor is a 59 yo M with PMH of paraplegia, previous history of sacral wound with flap reconstruction, recent admission for sacral wound who presented to the ED complaining of fever, weakness and worsening drainage from RLE wound and sacral wound. He was just discharged from [facility] on oral flagyl and completed his course last week. He has been noticing He states he is numb from his chest down, recently had a fall from his wheelchair where he landed on his sacrum and developed an injury/sacral wound. He also noted swelling of his R knee at that time. Pt states his sacral wound has drainged more and developed foul smell over the past week. He states he is aware this leg will take months if not years to heal and he would prefer an amputation. 07/07/2020 Maintained on Unasyn and vancomycin. Afebrile. Patient reporting frustration, requesting amputation. Evaluated by vascular surgery, amputation not recommended at this time -recommending revascularization of right lower extremity .Denies pain.denies chest pain, palpitations or shortness of breath. Vital signs stable, maintaining O2 sats in the high 90s on room air . 07/08/2020 denies chest pain, palpitations or shortness of breath. Denies pain. Denies chills. Scheduled for Lexiscan today with cardiology. Vascular surgery on Saturday as previously mentioned. Continues on antibiotics as per ID. Afebrile. Wound cultures pending. Scheduled for debridement of right gluteal ulcer with surgery today. 07/11/2020 Scheduled for a right femoral endarterectomy today with vascular surgery. Denies chest pain, palpitations or shortness of breath. Maintained on antibiotics as per ID, buttock wound culture reporting MRSA. Afebrile, WBC 10.9, sed rate 110. hemoglobin 10, platelets 606. postop day #1 for right iliac and common femoral thromboendarterectomy with patch angioplasty. Tolerated procedure well, afebrile, denies pain. Per vascular,positive femoral ,Right femoral, popliteal, and posterior tibialis Doppler signal present. Unable to obtain Doppler signal of the right dorsalis pedis. Vital signs stable. Afebrile. Denies chest pain, palpitations or shortness of breath. Flat affect , declines initiation of antidepressant. Patient will be discharged to subacute rehab pending authorization/accepting facility in a stable condition with guarded prognosis pending final DC recommendations and clearance from vascular surgery, general surgery, infectious disease. DC Antibiotics as per ID. Wound care including wound VAC as per ID/ge neral surgery. Discussed coordinating referral in 3 weeks for a plastic surgeon. Microbiology 07/05/20 21:45 Blood Blood Culture - Final No Growth after 144 hours 07/05/20 22:00 Blood Blood Culture - Final No Growth after 144 hours 07/07/20 18:05 Buttock Anaerobic Culture - Final 07/08/20 15:15 Buttock Anaerobic Culture - Final Anaerobic Gm Negative Bacilli 07/08/20 15:15 Buttock Gram Stain - Final 07/08/20 15:15 Buttock Wound Culture - Final Methicillin resist S. aureus 07/07/20 18:05 Buttock Gram Stain - Final 07/07/20 18:05 Buttock Wound Culture - Final Methicillin resist S. aureus The impression and plan of care has been dictated as directed. : I performed a history and examination of this patient, discussed the same with the dictator. I agree with the dictator's note ,documented as a scribe. Any additional findings or plans will be noted. Patient Condition at Discharge: Stable Plan - Discharge Summary Discharge Rx Participant: No New Discharge Prescriptions: New Docusate [Colace] 100 mg PO BID PRN cap PRN Reason: Constipation Continue Baclofen [Lioresal] 20 mg PO QID tiZANidine HCL [Zanaflex] 1 mg PO BID Metoprolol Tartrate [Lopressor] 25 mg PO BID Atorvastatin Calcium [Lipitor] 40 mg PO HS Aspirin 81 mg PO DAILY Ergocalciferol [Vitamin D2 (DRISDOL)] 50,000 unit PO FR Diazepam [Valium] 10 mg PO QID #12 tab HYDROcodone/APAP 10-325MG [Arnold 10-325] 1 tab PO Q6H PRN #12 tab PRN Reason: Pain Discharge Medication List Baclofen [Lioresal] 20 mg PO QID 01/19/15 [History] Aspirin 81 mg PO DAILY 04/29/20 [History] Atorvastatin Calcium [Lipitor] 40 mg PO HS 04/29/20 [History] Ergocalciferol [Vitamin D2 (DRISDOL)] 50,000 unit PO FR 04/29/20 [History] Metoprolol Tartrate [Lopressor] 25 mg PO BID 04/29/20 [History] tiZANidine HCL [Zanaflex] 1 mg PO BID 04/29/20 [History] Diazepam [Valium] 10 mg PO QID #12 tab 07/12/20 [Rx] Docusate [Colace] 100 mg PO BID PRN cap 07/12/20 [Rx] HYDROcodone/APAP 10-325MG [Arnold 10-325] 1 tab PO Q6H PRN #12 tab 07/12/20 [Rx] Follow up Appointment(s)/Referral(s): Darryn Adler MD [STAFF PHYSICIAN] - 1 Week (After DC from subacute rehab) Activity/Diet/Wound Care/Special Instructions: Subacute rehab: Antibiotics as per ID Wound vac/wound care as per surgery/ID CBC, BMP in 3 days In 3 weeks,coordinate referral to a plastic surgeon Discharge Disposition: TRANSFER TO SNF/ECF
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
[2020-07-12] MEDS: SODIUM CHLORIDE 0.9% 1,000 ML IV SCH ×2 (12:42→20:33)
[2020-07-12] MEDS: VANCOMYCIN 1,500 MG in SODIUM CHLORIDE 0.9% 250 ML IVPB SCH ×2 (13:55→23:05)
[2020-07-12] MEDS: ATORVASTATIN 40 MG TAB PO SCH (20:33)
[2020-07-12] MEDS: HYDROcodone/APAP 10-325MG 1 EACH TAB PO PRN (23:12)
--- NOTE | 2020-07-13 03:23 | PN ---
PROGRESS NOTE DATE OF SERVICE: 07/12/2020 REASON FOR FOLLOWUP: Right gluteal stage IV pressure ulcer. INTERIM HISTORY: Patient is currently afebrile, has been breathing comfortably. Patient denies having any chest pain. No shortness of breath or cough. No abdominal pain or diarrhea. PHYSICAL EXAMINATION: Blood pressure 189/95, pulse 78, temperature 98.2. He is 97% on room air. General description: The patient is a middle-aged male lying in bed in no distress. Respiratory system: Unlabored breathing, clear to auscultation anteriorly. Heart S1, S2. Regular rate and rhythm. Abdomen soft, no tenderness. Right lower extremity did have multiple necrotic eschar. No redness. LABS: Hemoglobin 7.5 with white count 11.31, creatinine 0.8. DIAGNOSTIC IMPRESSION/PLAN: 1. Patient with right gluteal stage IV infected pressure ulcer. Culture positive for MRSA and anaerobes. Patient is covered with Unasyn and vancomycin. Plan is to finish therapy with vancomycin, pharmacy to dose along with oral Flagyl for 6 weeks. Local wound care with wound VAC. 2. Patient did have significant drop in his hemoglobin that needs to be monitored closely. 3. Patient with right lower extremity ischemic changes, may benefit from further surgical intervention even amputation to which the patient is agreeable. MMODL / IJN: [id number] /
[2020-07-13] MEDS: SODIUM CHLORIDE 0.9% 1,000 ML IV SCH (03:33)
[2020-07-13] MEDS: AMPICILLIN-SULBACTAM 3 GM in SODIUM CHLORIDE 0.9% 100 ML IVPB SCH ×4 (03:33→21:42)
[2020-07-13] MEDS: LACTATED RINGERS 1,000 ML IV SCH (05:03)
[2020-07-13] MEDS: diazePAM 5 MG TAB PO SCH ×4 (08:05→21:43)
[2020-07-13] MEDS: METOPROLOL TARTRATE 25 MG TAB PO SCH ×2 (08:06→21:43)
[2020-07-13] MEDS: ASPIRIN 81 MG PO SCH (08:06)
[2020-07-13] MEDS: BACLOFEN 10 MG TAB PO SCH ×4 (08:06→21:43)
[2020-07-13 08:46] LABS: Basophils % (A) 0 %; Eosinophils # (A) 0.1 k/uL (0-0.7); Eosinophils % (A) 1 %; Hypochromasia Slight; Lymphocytes # (A) 1.8 k/uL (1.0-4.8); Lymphocytes % (A) 22 %; MCH 29.3 pg (25.0-35.0); MCHC 31.9 g/dL (31.0-37.0); MCV 91.9 fL (80.0-100.0); Mean Platelet Volume 7.2; Monocytes # (A) 0.4 k/uL (0-1.0); Monocytes % (A) 5 %; Neutrophils % (A) 72 %; Platelet Count 517 k/uL (150-450); RBC 2.72 m/uL (4.30-5.90); RDW 15.8 % (11.5-15.5); WBC 8.4 k/uL (3.8-10.6)
[2020-07-13 09:40] LABS: African American GFR (CKD) 121.4 (60.0-200.0); Non-African American GFR(CKD) 104.8 (60.0-200.0)
[2020-07-13] MEDS ORDERED: LIDOCAINE 1% INJ 10MG/ML (20 ML MDV) SQ ONE (11:30)
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
[2020-07-13] MEDS: VANCOMYCIN 1,500 MG in SODIUM CHLORIDE 0.9% 250 ML IVPB SCH ×2 (13:02→23:41)
[2020-07-13] MEDS: amLODIPine 5 MG TAB PO SCH (13:02)
--- NOTE | 2020-07-13 13:43 | IR ---
EXAMINATION TYPE: IR cvc insert >=5 years DATE OF EXAM: 07/13/2020 COMPARISON: NONE CLINICAL HISTORY: Infection Needs long-term intravenous access for antibiotics. PROCEDURE: Hand hygiene obtained with soap and water and alcohol-based hand rub. After informed consent, the skin overlying the left basilic vein was localized with ultrasound and no yves to be compressible and patent. An ultrasound image was obtained and submitted on the patient's c prasad. The overlying skin was prepped and draped and Lidocaine was used for local anesthesia. A skin shala was made with a scalpel. Access was gained to the vein under ultrasound guidance with a 21 gau ge needle and a 0.018 inch wire was advanced. Access site was dilated with Peel-Away sheath and cath eter tailored to the appropriate length and advanced such that the distal tip is at the cavoatrial ju nction. Spot image was obtained verifying placement. Catheter was fixed to the skin and a sterile d ressing was placed following hemostasis. Catheter was aspirated and flushed with saline. Patient wa s discharged in stable condition without complication.Maximal barrier technique is utilized. Ultraso und image is documented on the chart. Ultrasound used with sterile technique. Fluoro time and fluoroscopic images submitted to document procedure: 0.2 minutes fluoroscopy time, 11 9 intraoperative images document the procedure IMPRESSION: STATUS POST ULTRASOUND AND FLUOROSCOPIC GUIDED PICC LINE PLACEMENT, READY FOR USE. THIS PROCEDURE WAS PERFORMED BY THE UNDERSIGNED.
--- NOTE | 2020-07-13 14:39 | PN ---
PROGRESS NOTE DATE OF SERVICE: 07/13/2020 REASON FOR FOLLOWUP: Right gluteal stage IV pressure ulcer, MRSA and anaerobes. INTERVAL HISTORY: The patient is currently afebrile, has been breathing comfortably. Patient denies having any chest pain. No shortness of breath or cough. No nausea, no vomiting. No abdominal pain or diarrhea. PHYSICAL EXAMINATION: Blood pressure 183/83, pulse 107, temperature 98.5. He is 97% on room air. General description is a middle-aged male lying in bed in no distress. RESPIRATORY SYSTEM: Unlabored breathing, clear to auscultation anteriorly. HEART: S1, S2. Regular rate and rhythm. ABDOMEN: Soft, no tenderness. LABS: Hemoglobin 8 with white count 8.4, creatinine 0.7. DIAGNOSTIC IMPRESSION AND PLAN: Patient with right gluteal pressure ulcer stage IV with underlying osteomyelitis. Culture with MRSA and anaerobes. Patient is covered with vancomycin. Unasyn will be switched to Flagyl for a total of 6 weeks. Local wound care with wound care and close outpatient followup. MMODL / IJN: [id number] /
[2020-07-13] MEDS ORDERED: lisinopriL 5 MG TAB PO SCH (16:30)
[2020-07-13] MEDS: ATORVASTATIN 40 MG TAB PO SCH (21:43)
[2020-07-14 02:12] LABS: Hemoglobin A1C 6.6 % (4.0-6.0)
[2020-07-14] MEDS: AMPICILLIN-SULBACTAM 3 GM in SODIUM CHLORIDE 0.9% 100 ML IVPB SCH ×2 (04:30→09:10)
[2020-07-14] MEDS: LACTATED RINGERS 1,000 ML IV SCH (04:33)
[2020-07-14] MEDS: BACLOFEN 10 MG TAB PO SCH (09:03)
[2020-07-14] MEDS: ASPIRIN 81 MG PO SCH (09:03)
[2020-07-14] MEDS: METOPROLOL TARTRATE 25 MG TAB PO SCH (09:04)
[2020-07-14] MEDS: amLODIPine 5 MG TAB PO SCH (09:04)
[2020-07-14] MEDS: diazePAM 5 MG TAB PO SCH (09:04)
[2020-07-14 10:34] VITALS: BP 185/93; PULSE 83; RESP 20; TEMP 98.4
== END 2020-07-14 13:35 | disposition home health service (06) | DRG 853 ==
LOC: EC 18:46 → 1SOBS 07-06 00:34 → OBSVTOIN 07-06 09:02 → 1SOBS 07-06 10:44 → 4SSUR 07-06 17:07 → 1SOBS 07-06 21:44 → 6NMEDSUR 07-07 14:34
PROVIDERS: ADMIT Family Medicine; ATTEND Family Medicine
PROC: 0KBN0ZZ Excision of Right Hip Muscle, Open Approach (ICD-10-PCS; principal; 2020-07-08 07:30)
PROC: 04CK0ZZ Extirpation of Matter from Right Femoral Artery, Open Approach (ICD-10-PCS; 2020-07-11)
PROC: 04CH0ZZ Extirpation of Matter from Right External Iliac Artery, Open Approach (ICD-10-PCS; 2020-07-11)
PROC: 04UK0KZ Supplement Right Femoral Artery with Nonautologous Tissue Substitute, Open Approach (ICD-10-PCS; 2020-07-11)
PROC: 02HV33Z Insertion of Infusion Device into Superior Vena Cava, Percutaneous Approach (ICD-10-PCS; 2020-07-13)
DX: A41.9 Sepsis, unspecified organism (principal); L89.314 Pressure ulcer of right buttock, stage 4; L89.154 Pressure ulcer of sacral region, stage 4; I70.261 Atherosclerosis of native arteries of extremities with gangrene, right leg; G82.20 Paraplegia, unspecified; D62 Acute posthemorrhagic anemia; S82.191A Other fracture of upper end of right tibia, initial encounter for closed fracture; L03.115 Cellulitis of right lower limb; M86.9 Osteomyelitis, unspecified; L89.619 Pressure ulcer of right heel, unspecified stage; L97.519 Non-pressure chronic ulcer of other part of right foot with unspecified severity; Z89.612 Acquired absence of left leg above knee; Z20.822 Contact with and (suspected) exposure to COVID-19; B95.62 Methicillin resistant Staphylococcus aureus infection as the cause of diseases classified elsewhere; S82.831A Other fracture of upper and lower end of right fibula, initial encounter for closed fracture; S80.11XA Contusion of right lower leg, initial encounter; N31.9 Neuromuscular dysfunction of bladder, unspecified; E78.5 Hyperlipidemia, unspecified; I10 Essential (primary) hypertension; K59.00 Constipation, unspecified; H93.13 Tinnitus, bilateral; F41.9 Anxiety disorder, unspecified; H91.90 Unspecified hearing loss, unspecified ear; Z79.82 Long term (current) use of aspirin; Z79.899 Other long term (current) drug therapy; Z87.891 Personal history of nicotine dependence; Z88.6 Allergy status to analgesic agent; Z88.5 Allergy status to narcotic agent; Z80.7 Family history of other malignant neoplasms of lymphoid, hematopoietic and related tissues; Z81.1 Family history of alcohol abuse and dependence; Z80.1 Family history of malignant neoplasm of trachea, bronchus and lung; Z82.49 Family history of ischemic heart disease and other diseases of the circulatory system; Z83.3 Family history of diabetes mellitus; W05.0XXA Fall from non-moving wheelchair, initial encounter
CPT/HCPCS: 36415; 36573; 71045; 72170; 78452; 80048; 80053; 80202; 81001; 82565; 83036; 83605; 85025; 85610; 85652; 85730; 86140; 86850; 86900; 86901; 87040; 87070; 87075; 87077; 87186; 87205; 87635; 88304; 88305; 88311; 93005; 93017; 93306; 96360; 96361; 96375; 99285

== ENCOUNTER → 2020-09-06 | Outpatient (CLI) | payer MEDICARE, OTHER ==
--- NOTE | 2020-09-08 09:47 | CT ---
EXAMINATION TYPE: CT angio abd aorta w/Runoff DATE OF EXAM: 09/06/2020 COMPARISON: Aortogram and outflow 06/13/2020, CT 05/05/2020 HISTORY: Peripheral vascular occlusive disease, sacral ulcer CT DLP: 780.3 mGycm, Automated Exposure Control for Dose Reduction was Utilized. CONTRAST: CT scan of the abdomen and pelvis is performed without oral and with IV Contrast, patient injected wi th 125 mL of Isovue 370. Three-dimensional reconstructions performed on an alternate workstation. FINDINGS: Patient shows amputation [id number] on the left. There is a displaced, comminuted intra -articular fracture of the proximal right tibia with associated soft tissue swelling, there is a join t effusion, subcutaneous edema. The thoracic aorta shows a patent appearance in its distal segment, abdominal aorta is patent, celiac axis shows atheromatous change at its origin, superior mesenteric artery is patent, renal arteries s how some atheromatous change at the origin on the left, is early bifurcation. Inferior mesenteric art nitin is patent, atheromatous changes are present in the abdominal aorta, no evident aneurysm or dissec tion. The common iliac arteries show atheromatous change, there is atherosclerotic narrowing at the o rigins bilaterally. Internal and external iliac arteries are patent proximally. Atheromatous changes are present and extensive. The left external iliac artery shows marked narrowing. There is occlusion distally, reconstitution of the deep and superficial femoral artery is present via collaterals, there is diminution in the size of the arteries, atheromatous change, no enhancing branches are seen dista lly within the thigh. The right external iliac artery is also diminutive with atheromatous change, th e right common femoral artery is patent as is the superficial femoral and deep femoral arteries, athe romatous changes are present. Distal superficial femoral artery shows tendon stenoses, popliteal geneva ry does not enhance, marked collateralization is present about the right knee. There is some reconsti tution of the anterior tibial and posterior tibial arteries which show enhancement distally, the post erior tibial artery is patent into the foot, anterior tibial artery is seen only to the level of the distal leg. Peroneal artery show some probable enhancement more peripherally. LUNG BASES: No significant abnormality is appreciated. LIVER/GB: No significant abnormality is appreciated. PANCREAS: No significant abnormality is seen. SPLEEN: No significant abnormality is seen. ADRENALS: No significant abnormality is seen. KIDNEYS: No significant abnormality is seen. BOWEL: No significant abnormality is seen. PROSTATE/SEMINAL VESICLES: No gross abnormality seen. LYMPH NODES: There is adenopathy in the groins bilaterally, largest node in the level of the proximal right thigh measures 2.2 cm in short dimension, axial image #163. Subcutaneous edema changes are pre sent. OSSEOUS STRUCTURES: There is ankylosis of the sacroiliac joints. Spinal curvature is noted. Deg enerative disc change present in the visualized spine. There are facet arthropathy changes. OTHER: Soft tissue wound is noted at the sacrum, there is some local skin thickening, correlate for c ellulitis. Distal sacrum shows an irregular appearance, coccyx is not seen, correlate for prior surgi toy intervention, difficult to exclude osteomyelitis. Sclerosis is also present involving the right r atio posteriorly at the level of the wound which is open to the level of the bone. IMPRESSION: Osteomyelitis at the level of patient's open wound. Peripheral vascular occlusive disease as described. Comminuted intra-articular proximal right tibial fracture. Additional findings above.
== END | disposition home or self-care (01) ==
LOC: RADCTMAIN 13:13
PROVIDERS: ATTEND Surgery Vascular Surgery
DX: I73.9 Peripheral vascular disease, unspecified (principal); M86.9 Osteomyelitis, unspecified
CPT/HCPCS: 75635; Q9967

== ENCOUNTER 2020-09-15 15:23 | Inpatient (IN) | payer MEDICARE, OTHER ==
[2020-09-15 18:48] LABS: Anisocytosis Slight; Basophils % (A) 0 %; Eosinophils # (A) 0.1 k/uL (0-0.7); Eosinophils % (A) 1 %; HCT 23.2 % (39.0-53.0); HGB 7.1 gm/dL (13.0-17.5); Hypochromasia Slight; Lymphocytes # (A) 1.2 k/uL (1.0-4.8); Lymphocytes % (A) 13 %; MCH 26.7 pg (25.0-35.0); MCHC 30.6 g/dL (31.0-37.0); Mean Platelet Volume 7.1; Monocytes # (A) 0.4 k/uL (0-1.0); Monocytes % (A) 4 %; Neutrophils # (A) 7.6 k/uL (1.3-7.7); Neutrophils % (A) 80 %; Platelet Count 446 k/uL (150-450); RBC 2.67 m/uL (4.30-5.90); RDW 16.2 % (11.5-15.5); WBC 9.4 k/uL (3.8-10.6)
[2020-09-15 18:58] LABS: ALT 19 U/L (4-49); AST 28 U/L (17-59); African American GFR (CKD) 84 (>60 ml/min/1.73 sqM); Albumin 2.9 g/dL (3.5-5.0); Alkaline Phosphatase 110 U/L (38-126); Anion Gap 7 mmol/L; Blood Urea Nitrogen 23 mg/dL (9-20); Calcium 8.2 mg/dL (8.4-10.2); Carbon Dioxide 25 mmol/L (22-30); Chloride 107 mmol/L (98-107); Glucose 94 mg/dL (74-99); Non-African American GFR(CKD) 73 (>60 ml/min/1.73 sqM); Potassium 3.8 mmol/L (3.5-5.1); Sodium 139 mmol/L (137-145); Total Bilirubin <0.1 mg/dL (0.2-1.3); Total Protein 6.3 g/dL (6.3-8.2)
[2020-09-15 19:06] LABS: MCV 87.2 fL (80.0-100.0)
[2020-09-15 19:07] LABS: Partial Thromboplastin Time 25.4 sec (22.0-30.0); Prothrombin Time 10.6 sec (9.0-12.0)
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
[2020-09-15] MEDS ORDERED: NALOXONE 0.4 MG/ML 1 ML VIAL IV PRN (19:33)
[2020-09-15] MEDS: SODIUM CHLORIDE 0.9% 1,000 ML IV SCH (20:26)
[2020-09-15] MEDS: HYDROcodone/APAP 10-325MG 1 EACH TAB PO PRN (20:26)
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
[2020-09-15] MEDS: ATORVASTATIN 40 MG TAB PO SCH (21:58)
[2020-09-15] MEDS ORDERED: ACETAMINOPHEN TAB 325 MG TAB PO STA (23:10)
[2020-09-15] MEDS: BACLOFEN 10 MG TAB PO SCH (23:13)
[2020-09-15] MEDS ORDERED: diazePAM 5 MG TAB PO STA (23:37)
[2020-09-16] MEDS: HYDROcodone/APAP 10-325MG 1 EACH TAB PO PRN ×3 (03:19→23:54)
[2020-09-16 05:56] LABS: Potassium 3.8 mmol/L (3.5-5.1)
[2020-09-16 05:59] LABS: ALT 14 U/L (4-49); AST 21 U/L (17-59); African American GFR (CKD) 89 (>60 ml/min/1.73 sqM); Albumin 2.5 g/dL (3.5-5.0); Albumin/Globulin Ratio 0.8; Alkaline Phosphatase 89 U/L (38-126); Anion Gap 4 mmol/L; Blood Urea Nitrogen 19 mg/dL (9-20); Calcium 7.8 mg/dL (8.4-10.2); Carbon Dioxide 26 mmol/L (22-30); Chloride 107 mmol/L (98-107); Globulin 3.1 g/dL; Glucose 95 mg/dL (74-99); Non-African American GFR(CKD) 77 (>60 ml/min/1.73 sqM); Sodium 137 mmol/L (137-145); Total Bilirubin <0.1 mg/dL (0.2-1.3); Total Protein 5.6 g/dL (6.3-8.2)
[2020-09-16 06:00] LABS: Partial Thromboplastin Time 27.3 sec (22.0-30.0); Prothrombin Time 10.4 sec (9.0-12.0)
[2020-09-16 06:08] LABS: Anisocytosis Slight; Basophils % (A) 0 %; Eosinophils # (A) 0.2 k/uL (0-0.7); Eosinophils % (A) 2 %; HCT 25.4 % (39.0-53.0); HGB 7.8 gm/dL (13.0-17.5); Hypochromasia Slight; Lymphocytes # (A) 1.5 k/uL (1.0-4.8); Lymphocytes % (A) 19 %; MCH 26.8 pg (25.0-35.0); MCHC 30.8 g/dL (31.0-37.0); MCV 87.2 fL (80.0-100.0); Mean Platelet Volume 7.1; Monocytes # (A) 0.3 k/uL (0-1.0); Monocytes % (A) 4 %; Neutrophils # (A) 5.6 k/uL (1.3-7.7); Neutrophils % (A) 73 %; Platelet Count 377 k/uL (150-450); RBC 2.91 m/uL (4.30-5.90); RDW 16.2 % (11.5-15.5); WBC 7.6 k/uL (3.8-10.6)
[2020-09-16] MEDS: AMPICILLIN-SULBACTAM 3 GM in SODIUM CHLORIDE 0.9% 100 ML IVPB SCH ×4 (06:48→23:09)
[2020-09-16] MEDS ORDERED: Potassium Replacement Protocol 1 EACH MISC MISCELLANE PRN (07:34)
[2020-09-16] MEDS ORDERED: Magnesium Replacement Protocol 1 EACH MISC MISCELLANE PRN (07:36)
[2020-09-16] MEDS: PANTOPRAZOLE 40 MG/10 ML VIAL IVP SCH (09:05)
[2020-09-16] MEDS: METOPROLOL TARTRATE 25 MG TAB PO SCH ×2 (09:13→21:23)
[2020-09-16] MEDS: tiZANidine 4 MG TAB PO SCH ×2 (09:14→21:21)
[2020-09-16] MEDS: BACLOFEN 10 MG TAB PO SCH ×4 (09:14→21:22)
[2020-09-16] MEDS ORDERED: DEXAMETHASONE SOD PHOSPHATE 4 MG/ML 1 ML VIAL IV ONE (11:56)
[2020-09-16] MEDS ORDERED: ONDANSETRON 4 MG/2 ML VIAL IVP ONE (11:56)
[2020-09-16] MEDS ORDERED: HYDROmorphone 0.5 MG/0.5 ML SYRINGE IVP PRN (11:56)
[2020-09-16] MEDS ORDERED: MIDAZOLAM 2 MG/2 ML VIAL IV PRN (11:56)
[2020-09-16] MEDS ORDERED: SCOPOLAMINE 1.5MG/72HR PATCH TRANSDERM ONE (11:56)
[2020-09-16] MEDS ORDERED: LACTATED RINGERS 1,000 ML IV ONE (12:07)
[2020-09-16] MEDS ORDERED: ePHEDrine SULFATE/0.9% NACL/PF 50 MG/5 ML SYRINGE IV ONE (12:17)
[2020-09-16] MEDS ORDERED: LIDOCAINE 1% INJ 10MG/ML (20 ML MDV) ONE (12:17)
[2020-09-16] MEDS ORDERED: fentaNYL (PF) 50 MCG/ML 2 ML AMP ONE (12:17)
[2020-09-16] MEDS ORDERED: PHENYLEPHRINE-0.9% NACL SYG 1,000 MCG/10 ML SYRINGE ONE (12:17)
[2020-09-16] MEDS ORDERED: MIDAZOLAM 2 MG/2 ML VIAL ONE (12:17)
[2020-09-16] MEDS ORDERED: PROPOFOL 10 MG/ML 20 ML VIAL IV ONE (12:17)
[2020-09-16] MEDS ORDERED: ONDANSETRON 4 MG/2 ML VIAL ONE (12:17)
[2020-09-16] MEDS ORDERED: SODIUM CHLORIDE 0.9% 100 ML with ceFAZolin 2,000 MG IV ONE ×2 (12:56)
[2020-09-16] MEDS: LACTATED RINGERS 1,000 ML IV SCH (15:20)
[2020-09-16] MEDS: SODIUM CHLORIDE 0.9% 1,000 ML IV SCH (15:20)
[2020-09-16] MEDS: diazePAM 5 MG TAB PO SCH (21:23)
[2020-09-16] MEDS: ATORVASTATIN 40 MG TAB PO SCH (21:23)
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
[2020-09-17] MEDS: SODIUM CHLORIDE 0.9% 1,000 ML IV SCH ×2 (04:58→16:00)
[2020-09-17] MEDS: AMPICILLIN-SULBACTAM 3 GM in SODIUM CHLORIDE 0.9% 100 ML IVPB SCH ×4 (06:10→23:59)
[2020-09-17 07:33] LABS: Basophils % (A) 0 %; Eosinophils # (A) 0.1 k/uL (0-0.7); Eosinophils % (A) 1 %; HCT 24.7 % (39.0-53.0); HGB 8.2 gm/dL (13.0-17.5); Hypochromasia Slight; Lymphocytes # (A) 1.2 k/uL (1.0-4.8); Lymphocytes % (A) 15 %; MCH 28.8 pg (25.0-35.0); MCHC 33.3 g/dL (31.0-37.0); MCV 86.5 fL (80.0-100.0); Mean Platelet Volume 7.2; Monocytes # (A) 0.4 k/uL (0-1.0); Monocytes % (A) 4 %; Neutrophils # (A) 6.4 k/uL (1.3-7.7); Neutrophils % (A) 79 %; Platelet Count 377 k/uL (150-450); RBC 2.85 m/uL (4.30-5.90); RDW 15.9 % (11.5-15.5); WBC 8.2 k/uL (3.8-10.6)
[2020-09-17 07:49] LABS: African American GFR (CKD) 80 (>60 ml/min/1.73 sqM); Anion Gap 4 mmol/L; Blood Urea Nitrogen 14 mg/dL (9-20); Calcium 7.4 mg/dL (8.4-10.2); Carbon Dioxide 27 mmol/L (22-30); Chloride 106 mmol/L (98-107); Glucose 167 mg/dL (74-99); Magnesium 1.9 mg/dL (1.6-2.3); Non-African American GFR(CKD) 69 (>60 ml/min/1.73 sqM); Sodium 137 mmol/L (137-145)
[2020-09-17] MEDS: BACLOFEN 10 MG TAB PO SCH ×4 (08:55→21:14)
[2020-09-17] MEDS: diazePAM 5 MG TAB PO SCH ×4 (08:55→21:14)
[2020-09-17] MEDS: tiZANidine 4 MG TAB PO SCH ×2 (08:56→21:15)
[2020-09-17] MEDS: PANTOPRAZOLE 40 MG/10 ML VIAL IVP SCH (08:56)
[2020-09-17] MEDS: METOPROLOL TARTRATE 25 MG TAB PO SCH (08:56)
[2020-09-17] MEDS: HYDROcodone/APAP 10-325MG 1 EACH TAB PO PRN ×2 (09:03→22:31)
--- NOTE | 2020-09-17 09:46 | PN ---
PROGRESS NOTE This gentleman is a 59-year-old paraplegic. Patient went for a right above-knee amputation. Patient tolerated the procedure well. The patient has sacral wound and ischial wound which will be treated with a wound VAC and local care. PLAN: The patient will continue with IV antibiotic and start bedside physical therapy. We will arrange for VAC therapy. GIORGIO / BRENNEN: [id number] /
[2020-09-17] MEDS: HYDROmorphone 0.5 MG/0.5 ML SYRINGE IVP PRN (12:34)
[2020-09-17] MEDS: LACTATED RINGERS 1,000 ML IV SCH (12:59)
[2020-09-17 13:00] VITALS: BMI 32.5
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
[2020-09-17] MEDS ORDERED: DOCUSATE 100 MG CAP PO PRN (13:49)
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
[2020-09-17] MEDS: HEPARIN SODIUM,PORCINE/PF 5,000 UNIT/0.5 ML SYRINGE SQ SCH ×2 (15:14→21:14)
[2020-09-17] MEDS: ATORVASTATIN 40 MG TAB PO SCH (21:13)
[2020-09-18] MEDS: METOPROLOL TARTRATE 25 MG TAB PO SCH ×3 (00:01→20:21)
[2020-09-18] MEDS ORDERED: ACETAMINOPHEN TAB 325 MG TAB PO PRN (03:25)
[2020-09-18] MEDS: HYDROmorphone 0.5 MG/0.5 ML SYRINGE IVP PRN (03:34)
[2020-09-18 03:56] LABS: Anisocytosis Slight; Basophils % (A) 0 %; Eosinophils # (A) 0.1 k/uL (0-0.7); Eosinophils % (A) 1 %; HCT 25.6 % (39.0-53.0); HGB 7.9 gm/dL (13.0-17.5); Hypochromasia Slight; Lymphocytes # (A) 1.7 k/uL (1.0-4.8); Lymphocytes % (A) 24 %; MCHC 30.9 g/dL (31.0-37.0); MCV 87.5 fL (80.0-100.0); Monocytes # (A) 0.3 k/uL (0-1.0); Monocytes % (A) 4 %; Neutrophils # (A) 4.7 k/uL (1.3-7.7); Neutrophils % (A) 68 %; Platelet Count 468 k/uL (150-450); RBC 2.93 m/uL (4.30-5.90); RDW 16.1 % (11.5-15.5)
[2020-09-18] MEDS: AMPICILLIN-SULBACTAM 3 GM in SODIUM CHLORIDE 0.9% 100 ML IVPB SCH ×4 (06:02→23:49)
[2020-09-18] MEDS: SODIUM CHLORIDE 0.9% 1,000 ML IV SCH ×2 (06:06→19:33)
[2020-09-18] MEDS: tiZANidine 4 MG TAB PO SCH ×2 (08:08→20:22)
[2020-09-18] MEDS: BACLOFEN 10 MG TAB PO SCH ×4 (08:08→20:21)
[2020-09-18] MEDS: diazePAM 5 MG TAB PO SCH ×4 (08:09→20:20)
[2020-09-18] MEDS: PANTOPRAZOLE 40 MG/10 ML VIAL IVP SCH (08:09)
[2020-09-18] MEDS: HEPARIN SODIUM,PORCINE/PF 5,000 UNIT/0.5 ML SYRINGE SQ SCH ×2 (08:09→20:20)
[2020-09-18] MEDS: ASPIRIN 81 MG PO SCH (08:09)
[2020-09-18 10:24] LABS: African American GFR (CKD) 85.9 (60.0-200.0); Anion Gap 8.3 mmol/L (4.00-12.00); BUN/Creat Ratio 11.82 Ratio (12.00-20.00); Calcium 7.7 mg/dL (8.7-10.3); Carbon Dioxide 25.7 mmol/L (21.6-31.8); Non-African American GFR(CKD) 74.1 (60.0-200.0); Potassium 4.2 mmol/L (3.5-5.5)
[2020-09-18] MEDS: LACTATED RINGERS 1,000 ML IV SCH (12:35)
[2020-09-18] MEDS: HYDROcodone/APAP 10-325MG 1 EACH TAB PO PRN ×2 (15:19→20:33)
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
[2020-09-18] MEDS: ATORVASTATIN 40 MG TAB PO SCH (20:20)
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
[2020-09-19 02:00] LABS: Appearance,Urine Clear (Clear); Bacteria,Urine Rare /hpf; Bilirubin,Urine Negative (Negative); Blood,Urine Small (Negative); Color,Urine Colorless; Glucose,Urine (UA) Negative (Negative); Ketones,Urine Negative (Negative); Leukocyte Esterase,Urine Trace (Negative); Nitrite,Urine Negative (Negative); Protein,Urine Negative (Negative); RBC,Urine 2 /hpf (0-5); Specific Gravity,Urine 1.007 (1.001-1.035); Urobilinogen,Urine <2.0 mg/dL (<2.0); WBC,Urine 4 /hpf (0-5)
[2020-09-19] MEDS: AMPICILLIN-SULBACTAM 3 GM in SODIUM CHLORIDE 0.9% 100 ML IVPB SCH ×4 (06:29→23:30)
[2020-09-19] MEDS: SODIUM CHLORIDE 0.9% 1,000 ML IV SCH ×3 (06:30→21:06)
[2020-09-19 07:16] LABS: Basophils % (A) 0 %; Eosinophils # (A) 0.2 k/uL (0-0.7); Eosinophils % (A) 3 %; HCT 26.3 % (39.0-53.0); HGB 8.2 gm/dL (13.0-17.5); Hypochromasia Moderate; Lymphocytes # (A) 1.3 k/uL (1.0-4.8); Lymphocytes % (A) 15 %; MCH 27.6 pg (25.0-35.0); MCHC 31.1 g/dL (31.0-37.0); MCV 88.7 fL (80.0-100.0); Mean Platelet Volume 7.2; Monocytes # (A) 0.3 k/uL (0-1.0); Monocytes % (A) 4 %; Neutrophils # (A) 6.4 k/uL (1.3-7.7); Neutrophils % (A) 77 %; Platelet Count 483 k/uL (150-450); RBC 2.97 m/uL (4.30-5.90); RDW 15.8 % (11.5-15.5); WBC 8.4 k/uL (3.8-10.6)
[2020-09-19] MEDS: HEPARIN SODIUM,PORCINE/PF 5,000 UNIT/0.5 ML SYRINGE SQ SCH (08:02)
[2020-09-19] MEDS: METOPROLOL TARTRATE 25 MG TAB PO SCH ×2 (08:03→23:44)
[2020-09-19] MEDS: BACLOFEN 10 MG TAB PO SCH ×4 (08:03→23:43)
[2020-09-19] MEDS: tiZANidine 4 MG TAB PO SCH ×2 (08:03→23:44)
[2020-09-19] MEDS: diazePAM 5 MG TAB PO SCH ×4 (08:03→23:43)
[2020-09-19] MEDS: ASPIRIN 81 MG PO SCH (08:04)
[2020-09-19] MEDS: HYDROcodone/APAP 10-325MG 1 EACH TAB PO PRN ×3 (08:05→23:45)
[2020-09-19] MEDS: PANTOPRAZOLE 40 MG/10 ML VIAL IVP SCH (10:57)
[2020-09-19 12:57] LABS: African American GFR (CKD) 85.9 (60.0-200.0); Anion Gap 9.9 mmol/L (4.00-12.00); BUN/Creat Ratio 10.91 Ratio (12.00-20.00); Calcium 8.1 mg/dL (8.7-10.3); Carbon Dioxide 25.1 mmol/L (21.6-31.8); Non-African American GFR(CKD) 74.1 (60.0-200.0); Potassium 4.9 mmol/L (3.5-5.5)
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
[2020-09-19] MEDS: LACTATED RINGERS 1,000 ML IV SCH (14:55)
[2020-09-19] MEDS: ATORVASTATIN 40 MG TAB PO SCH (23:43)
[2020-09-20] MEDS: HEPARIN SODIUM,PORCINE/PF 5,000 UNIT/0.5 ML SYRINGE SQ SCH ×3 (00:46→22:15)
[2020-09-20] MEDS: AMPICILLIN-SULBACTAM 3 GM in SODIUM CHLORIDE 0.9% 100 ML IVPB SCH ×4 (05:33→23:23)
[2020-09-20 05:46] LABS: Basophils % (A) 0 %; Eosinophils # (A) 0.2 k/uL (0-0.7); Eosinophils % (A) 2 %; HCT 27.1 % (39.0-53.0); HGB 8.2 gm/dL (13.0-17.5); Hypochromasia Marked; Lymphocytes # (A) 1.7 k/uL (1.0-4.8); Lymphocytes % (A) 22 %; MCH 26.8 pg (25.0-35.0); MCHC 30.1 g/dL (31.0-37.0); Mean Platelet Volume 7.1; Monocytes # (A) 0.3 k/uL (0-1.0); Monocytes % (A) 5 %; Neutrophils # (A) 5.2 k/uL (1.3-7.7); Neutrophils % (A) 69 %; Platelet Count 541 k/uL (150-450); RBC 3.05 m/uL (4.30-5.90); RDW 15.7 % (11.5-15.5); WBC 7.5 k/uL (3.8-10.6)
[2020-09-20] MEDS: PANTOPRAZOLE 40 MG/10 ML VIAL IVP SCH (09:03)
[2020-09-20] MEDS: METOPROLOL TARTRATE 25 MG TAB PO SCH ×2 (09:05→22:14)
[2020-09-20] MEDS: BACLOFEN 10 MG TAB PO SCH ×4 (09:05→22:14)
[2020-09-20] MEDS: diazePAM 5 MG TAB PO SCH ×4 (09:05→22:15)
[2020-09-20] MEDS: tiZANidine 4 MG TAB PO SCH ×2 (09:06→22:14)
[2020-09-20] MEDS: ASPIRIN 81 MG PO SCH (09:10)
[2020-09-20 10:21] LABS: African American GFR (CKD) 70.2 (60.0-200.0); Anion Gap 10.8 mmol/L (4.00-12.00); BUN/Creat Ratio 10.77 Ratio (12.00-20.00); Calcium 8.5 mg/dL (8.7-10.3); Carbon Dioxide 25.2 mmol/L (21.6-31.8); Non-African American GFR(CKD) 60.6 (60.0-200.0); Potassium 4.4 mmol/L (3.5-5.5)
[2020-09-20] MEDS: HYDROcodone/APAP 10-325MG 1 EACH TAB PO PRN ×2 (13:44→22:14)
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
[2020-09-20] MEDS: ATORVASTATIN 40 MG TAB PO SCH (22:16)
[2020-09-20] MEDS ORDERED: VANCOMYCIN IV PER PHARMACY 1 EACH MISC MISCELLANE PRN (23:10)
[2020-09-20] MEDS: SODIUM CHLORIDE 0.9% 1,000 ML IV SCH (23:22)
[2020-09-20] MEDS ORDERED: VANCOMYCIN 1,500 MG in SODIUM CHLORIDE 0.9% 250 ML IVPB ONE (23:50)
[2020-09-21] MEDS: AMPICILLIN-SULBACTAM 3 GM in SODIUM CHLORIDE 0.9% 100 ML IVPB SCH ×4 (05:53→23:21)
[2020-09-21] MEDS: SODIUM CHLORIDE 0.9% 1,000 ML IV SCH (05:55)
[2020-09-21] MEDS: BACLOFEN 10 MG TAB PO SCH ×4 (08:32→20:30)
[2020-09-21] MEDS: ASPIRIN 81 MG PO SCH (08:32)
[2020-09-21] MEDS: HYDROcodone/APAP 10-325MG 1 EACH TAB PO PRN ×3 (08:33→23:31)
[2020-09-21] MEDS: HEPARIN SODIUM,PORCINE/PF 5,000 UNIT/0.5 ML SYRINGE SQ SCH ×2 (08:33→20:18)
[2020-09-21] MEDS: diazePAM 5 MG TAB PO SCH ×4 (08:33→21:43)
[2020-09-21] MEDS: PANTOPRAZOLE 40 MG/10 ML VIAL IVP SCH (08:33)
[2020-09-21] MEDS: METOPROLOL TARTRATE 25 MG TAB PO SCH ×2 (08:33→20:18)
[2020-09-21] MEDS: VANCOMYCIN 1,250 MG in SODIUM CHLORIDE 0.9% 250 ML IVPB SCH ×2 (08:35→20:29)
[2020-09-21] MEDS: tiZANidine 4 MG TAB PO SCH ×2 (08:35→20:19)
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
--- NOTE | 2020-09-21 18:51 | PN ---
PROGRESS NOTE DATE OF SERVICE: 09/21/2020 REASON FOR FOLLOWUP: Bilateral gluteal pressure ulcer and sacral pressure ulcer. INTERVAL HISTORY: Patient is afebrile. The patient is breathing comfortably. The patient denies having any chest pain or shortness of breath or cough. No abdominal pain or any symptoms. PHYSICAL EXAMINATION: VITAL SIGNS: Blood pressure 154/64, pulse of 80, temperature 98.2, he is 96% on room air. GENERAL DESCRIPTION: A middle-aged male lying in bed in no distress. RESPIRATORY SYSTEM: Unlabored breathing, decreased breath sounds in the bases, no wheeze. HEART: S1, S2. Regular rate and rhythm. ABDOMEN: Soft, no tenderness. SKIN: Examination of sacral area did have a necrotic eschar. The right gluteal wound is currently covered with a wound VAC. Her left gluteal wound with minimal slough tissue. LABS: Hemoglobin 8.1, white count 7.5. BUN of 14, creatinine 1.3. Urine is negative. DIAGNOSTIC IMPRESSION AND PLAN: 1. Patient with left gluteal infected pressure ulcer. The patient completed antibiotic therapy. Back wound looks clean and underlying infection has been adequately treated. Continue local wound care with wound VAC. 2. Patient with left gluteal pressure ulcer that will be debrided by Surgery to see if there is any evidence of wound tracking down to the bone or purulence. Cultures will be obtained and antibiotic may be recommended. If not, will recommend local wound care and no need for antibiotic on discharge. This has been discussed in detail with the surgical team on the phone. MMODL / IJN: [id number] / CAMERON
[2020-09-21] MEDS: HYDROmorphone 0.5 MG/0.5 ML SYRINGE IVP PRN (20:15)
[2020-09-21] MEDS: ATORVASTATIN 40 MG TAB PO SCH (20:18)
[2020-09-22] MEDS: SODIUM CHLORIDE 0.9% 1,000 ML IV SCH ×3 (05:14→23:38)
[2020-09-22] MEDS: AMPICILLIN-SULBACTAM 3 GM in SODIUM CHLORIDE 0.9% 100 ML IVPB SCH ×4 (05:52→23:37)
[2020-09-22 06:17] LABS: African American GFR (CKD) 88 (>60 ml/min/1.73 sqM); Anion Gap 5 mmol/L; Blood Urea Nitrogen 17 mg/dL (9-20); Calcium 8.1 mg/dL (8.4-10.2); Carbon Dioxide 30 mmol/L (22-30); Chloride 106 mmol/L (98-107); Glucose 126 mg/dL (74-99); Non-African American GFR(CKD) 76 (>60 ml/min/1.73 sqM); Potassium 4.5 mmol/L (3.5-5.1); Sodium 141 mmol/L (137-145)
[2020-09-22 06:26] LABS: Basophils % (A) 1 %; Eosinophils # (A) 0.2 k/uL (0-0.7); Eosinophils % (A) 2 %; HCT 25.9 % (39.0-53.0); HGB 8.4 gm/dL (13.0-17.5); Hypochromasia Moderate; Lymphocytes # (A) 1.5 k/uL (1.0-4.8); Lymphocytes % (A) 17 %; MCH 28.7 pg (25.0-35.0); MCHC 32.3 g/dL (31.0-37.0); Mean Platelet Volume 7.1; Monocytes # (A) 0.4 k/uL (0-1.0); Monocytes % (A) 4 %; Neutrophils % (A) 76 %; Platelet Count 577 k/uL (150-450); RBC 2.91 m/uL (4.30-5.90); RDW 15.9 % (11.5-15.5); WBC 9.2 k/uL (3.8-10.6)
[2020-09-22] MEDS: ASPIRIN 81 MG PO SCH (08:02)
[2020-09-22] MEDS: BACLOFEN 10 MG TAB PO SCH ×4 (08:02→20:19)
[2020-09-22] MEDS: diazePAM 5 MG TAB PO SCH ×4 (08:02→21:33)
[2020-09-22] MEDS: HEPARIN SODIUM,PORCINE/PF 5,000 UNIT/0.5 ML SYRINGE SQ SCH ×2 (08:02→20:20)
[2020-09-22] MEDS: tiZANidine 4 MG TAB PO SCH ×2 (08:03→20:19)
[2020-09-22] MEDS: PANTOPRAZOLE 40 MG/10 ML VIAL IVP SCH (08:12)
[2020-09-22] MEDS: METOPROLOL TARTRATE 25 MG TAB PO SCH ×2 (08:13→20:18)
[2020-09-22] MEDS: VANCOMYCIN 1,250 MG in SODIUM CHLORIDE 0.9% 250 ML IVPB SCH ×2 (08:13→20:35)
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
[2020-09-22] MEDS: HYDROcodone/APAP 10-325MG 1 EACH TAB PO PRN ×2 (12:30→17:35)
--- NOTE | 2020-09-22 16:10 | P.PCN ---
Date of Procedure: 09/22/20 Procedure(s) Performed: PREOPERATIVE DIAGNOSIS: Left ischial decubitus ulcer POSTOPERATIVE DIAGNOSIS: Same PROCEDURE: Debridement SURGEON: Merlin EBL: 1 mL ANESTHESIA: None COMPLICATIONS: None OPERATIVE PROCEDURE: Patient In the room for the procedure. He was placed in the right decubitus position. The left ischial wound was debrided in an excisional manner with a scalpel sharply. The area debrided measured 7 x 3 cm. This included both necrotic skin and cutaneous fat and necrotic muscle as well. We had healthy margins. No active bleeding. Sterile dressing with met a honey applied. DISPOSITION: Stable to recovery room
[2020-09-22] MEDS ORDERED: VANCOMYCIN TROUGH DUE 1 EACH MISC MISCELLANE ONE (20:00)
[2020-09-22] MEDS: ATORVASTATIN 40 MG TAB PO SCH (20:20)
[2020-09-22] MEDS: HYDROmorphone 0.5 MG/0.5 ML SYRINGE IVP PRN (20:20)
--- NOTE | 2020-09-22 23:42 | PN ---
PROGRESS NOTE DATE OF SERVICE: 09/22/2020 REASON FOR FOLLOWUP: Bilateral gluteal pressure ulcer. INTERVAL HISTORY: Patient was taken to the OR this afternoon and the patient is status post debridement of left ischial pressure ulcer. No mention of any purulence. The patient denies having any chest pain, shortness of breath or cough. No abdominal pain. No diarrhea. PHYSICAL EXAMINATION: Blood pressure 155/89, pulse of 95. Temperature is 97.7. He is 97% on room air. General description: The patient is a middle-aged male lying in bed in no distress. Respiratory system: Unlabored breathing, clear to auscultation anteriorly. Heart S1, S2. Regular rate and rhythm. Abdomen soft, no tenderness. The bilateral leg wound is currently dressed. No drainage on the dressing. LABS: Hemoglobin 8.4, white count of 9.2, BUN of 17, creatinine 1.08. DIAGNOSTIC IMPRESSION AND PLAN: 1. Patient with infected right gluteal pressure ulcer for which the patient received more than 10 weeks of IV vancomycin and can be discontinued on discharge. 2. Patient with left gluteal pressure ulcer stage III, status post debridement. No evidence of any purulence or exposure of the wound. Recommend local wound care with Medihoney that can be transitioned to wound VAC. No need for any antibiotic on discharge. PICC line will be discontinued. MMODL / IJN: [id number] /
[2020-09-23] MEDS: AMPICILLIN-SULBACTAM 3 GM in SODIUM CHLORIDE 0.9% 100 ML IVPB SCH ×3 (05:39→17:45)
[2020-09-23 06:42] LABS: African American GFR (CKD) >90 (>60 ml/min/1.73 sqM); Non-African American GFR(CKD) 83 (>60 ml/min/1.73 sqM)
[2020-09-23] MEDS: METOPROLOL TARTRATE 25 MG TAB PO SCH ×2 (08:45→21:03)
[2020-09-23] MEDS: ASPIRIN 81 MG PO SCH (08:45)
[2020-09-23] MEDS: BACLOFEN 10 MG TAB PO SCH ×4 (08:46→21:03)
[2020-09-23] MEDS: PANTOPRAZOLE 40 MG TABLET PO SCH (08:46)
[2020-09-23] MEDS: tiZANidine 4 MG TAB PO SCH ×2 (08:46→21:03)
[2020-09-23] MEDS: diazePAM 5 MG TAB PO SCH ×4 (08:46→21:03)
[2020-09-23] MEDS: HEPARIN SODIUM,PORCINE/PF 5,000 UNIT/0.5 ML SYRINGE SQ SCH ×2 (08:47→21:03)
[2020-09-23] MEDS: HYDROcodone/APAP 10-325MG 1 EACH TAB PO PRN ×3 (08:50→21:11)
[2020-09-23] MEDS ORDERED: ERGOCALCIFEROL 1,250 MCG (50,000 IU) CAPSULE PO SCH (09:00)
--- NOTE | 2020-09-23 12:03 | P.PN ---
Subjective Progress Note Date: 09/23/20 Principal diagnosis: Multiple decubitus ulcers Patient has no new complaints today. No pain at the operative site. Wound VAC remains on the right and she'll decubitus ulcer. Dressing was changed earlier today at the left if she'll decubitus ulcer. Objective - Vital Signs Vital signs: Vital Signs Temp 98.6 F 09/23/20 11:59 Pulse 79 09/23/20 11:59 Resp 16 09/23/20 11:59 BP 122/73 09/23/20 11:59 Pulse Ox 97 09/23/20 11:59 Intake & Output 09/22/20 09/23/20 09/23/20 18:59 06:59 18:59 Intake Total 450 2225 Output Total 1600 1000 Balance -1150 1225 Intake: Intake, IV Titration 450 975 Amount Ampicillin-Sulbactam 3 gm 200 In Sodium Chloride 0.9% 100 ml @ 200 mls/hr IVPB Q6HR ANA Rx#:[id number] Sodium Chloride 0.9% 1, 450 525 000 ml @ 75 mls/hr IV . [id number] ANA Rx#:[id number] Vancomycin 1,250 mg In 250 Sodium Chloride 0.9% 250 ml @ 125 mls/hr IVPB Q12HR ANA Rx#:[id number] Oral 1250 Output: Urine 1600 1000 Other: Voiding Method Indwelling Catheter Indwelling Catheter Indwelling Catheter - Exam Wound VAC and dressings in place without significant drainage or erythema - Labs CBC & Chem 7: 09/22/20 04:52 09/23/20 05:43 Labs: Microbiology - Last 24 Hours (Table) 09/18/20 19:56 Blood Culture - Preliminary Blood No Growth after 96 hours 09/17/20 14:18 Blood Culture - Preliminary Blood No Growth after 120 hours Assessment and Plan (1) Sacral wound Narrative/Plan: Continue local wound care. Continue offloading. Optimize nutritional status. Discharge planning in progress. Current Visit: No Status: Acute Code(s): S31.000A - UNSP OPN WND LOW BACK AND PELV W/O PENET RETROPERITON, INIT SNOMED Code(s): 629519336
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
[2020-09-23] MEDS: VANCOMYCIN 1,250 MG in SODIUM CHLORIDE 0.9% 250 ML IVPB SCH (14:34)
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
--- NOTE | 2020-09-23 18:11 | PN ---
PROGRESS NOTE DATE OF SERVICE: 09/23/2020 REASON FOR FOLLOWUP: Bilateral gluteal pressure ulcer and sacral pressure ulcer. INTERVAL HISTORY: Patient is currently afebrile. The patient is comfortably relaxing in no distress. No new symptoms. PHYSICAL EXAMINATION: Blood pressure 122/73 with a pulse of 69, temperature 98.6, 97% on room air. General description: The patient is a middle-aged male lying in bed in no distress. Respiratory system: Unlabored breathing, clear to auscultation anteriorly. Heart S1, S2. Regular rate and rhythm. Abdomen soft, no tenderness. LABS: Reviewed DIAGNOSTIC IMPRESSION AND PLAN: 1. Patient with right gluteal pressure ulcer and osteomyelitis for which the patient received more than 10 weeks of IV antibiotic therapy. 2. Patient with left gluteal pressure ulcer status post debridement. No evidence of any abscess or osteomyelitis. Recommend local wound care. PICC line can be discontinued. No need for antibiotic on discharge. MMODL / IJN: [id number] / MTDD
[2020-09-23] MEDS: ATORVASTATIN 40 MG TAB PO SCH (21:03)
[2020-09-23] MEDS: SODIUM CHLORIDE 0.9% 1,000 ML IV SCH (21:08)
[2020-09-24] MEDS: AMPICILLIN-SULBACTAM 3 GM in SODIUM CHLORIDE 0.9% 100 ML IVPB SCH ×5 (00:01→23:09)
[2020-09-24] MEDS: VANCOMYCIN 1,250 MG in SODIUM CHLORIDE 0.9% 250 ML IVPB SCH ×2 (05:29→22:23)
[2020-09-24 06:11] LABS: HCT 24.5 % (39.0-53.0); HGB 7.9 gm/dL (13.0-17.5); Hypochromasia Moderate; MCH 28.4 pg (25.0-35.0); MCHC 32.1 g/dL (31.0-37.0); MCV 88.6 fL (80.0-100.0); Mean Platelet Volume 7.4; Platelet Count 623 k/uL (150-450); RBC 2.77 m/uL (4.30-5.90); RDW 15.8 % (11.5-15.5); WBC 9.9 k/uL (3.8-10.6)
[2020-09-24 06:16] LABS: African American GFR (CKD) >90 (>60 ml/min/1.73 sqM); Anion Gap 6 mmol/L; Blood Urea Nitrogen 20 mg/dL (9-20); Calcium 8.4 mg/dL (8.4-10.2); Carbon Dioxide 28 mmol/L (22-30); Chloride 105 mmol/L (98-107); Glucose 93 mg/dL (74-99); Non-African American GFR(CKD) 78 (>60 ml/min/1.73 sqM); Potassium 4.8 mmol/L (3.5-5.1); Sodium 139 mmol/L (137-145)
[2020-09-24 06:46] LABS: Band Neutrophils % 6 %; Lymphocytes # (M) 1.49 k/uL (1.0-4.8); Neutrophils % (M) 72 %; Nucleated Red Blood Cells 0 /100 WBC (0-0); Total Cells Counted 100
[2020-09-24] MEDS: HYDROcodone/APAP 10-325MG 1 EACH TAB PO PRN ×3 (08:09→21:11)
[2020-09-24] MEDS: diazePAM 5 MG TAB PO SCH ×4 (08:09→21:11)
[2020-09-24] MEDS: PANTOPRAZOLE 40 MG TABLET PO SCH (08:09)
[2020-09-24] MEDS: ASPIRIN 81 MG PO SCH (08:09)
[2020-09-24] MEDS: BACLOFEN 10 MG TAB PO SCH ×4 (08:09→21:11)
[2020-09-24] MEDS: METOPROLOL TARTRATE 25 MG TAB PO SCH ×2 (08:10→21:11)
[2020-09-24] MEDS: tiZANidine 4 MG TAB PO SCH ×2 (08:10→21:11)
[2020-09-24] MEDS: HEPARIN SODIUM,PORCINE/PF 5,000 UNIT/0.5 ML SYRINGE SQ SCH ×2 (08:11→21:11)
--- NOTE | 2020-09-24 10:51 | P.PN ---
Subjective Progress Note Date: 09/24/20 Principal diagnosis: Multiple decubitus ulcers Patient has no new complaints. He is afebrile. No discomfort. Wounds are being dressed appropriately. Objective - Vital Signs Vital signs: Vital Signs Temp 98.4 F 09/24/20 04:31 Pulse 84 09/24/20 04:31 Resp 16 09/24/20 04:31 BP 151/76 09/24/20 04:31 Pulse Ox 98 09/24/20 04:31 Intake & Output 09/23/20 09/24/20 09/24/20 18:59 06:59 18:59 Intake Total 1940 Output Total 2300 1350 1000 Balance -2300 590 -1000 Intake: Intake, IV Titration 1100 Amount Ampicillin-Sulbactam 3 gm 200 In Sodium Chloride 0.9% 100 ml @ 200 mls/hr IVPB Q6HR [facility] Rx#:[id number] Sodium Chloride 0.9% 1, 900 000 ml @ 75 mls/hr IV . [id number] ANA Rx#:[id number] Oral 840 Output: Urine 2300 1350 1000 Uretheral (Carrillo) 1350 1000 Other: Voiding Method Indwelling Catheter Indwelling Catheter - Exam Sacral and bilateral issue wounds without changes. Wound VAC in place on the right-hand side. - Labs CBC & Chem 7: 09/24/20 04:28 09/24/20 04:28 Labs: Abnormal Lab Results - Last 24 Hours (Table) 09/24/20 Range/Units 04:28 RBC 2.77 L (4.30-5.90) m/uL Hgb 7.9 L (13.0-17.5) gm/dL Hct 24.5 L (39.0-53.0) % RDW 15.8 H (11.5-15.5) % Plt Count 623 H (150-450) k/uL Microbiology - Last 24 Hours (Table) 09/18/20 19:56 Blood Culture - Preliminary Blood No Growth after 120 hours 09/17/20 14:18 Blood Culture - Final Blood No Growth after 144 hours Assessment and Plan (1) Sacral wound Narrative/Plan: Continue local wound care. We'll sign off. Please call if needed for further debridements. Current Visit: No Status: Acute Code(s): S31.000A - UNSP OPN WND LOW BACK AND PELV W/O PENET RETROPERITON, INIT SNOMED Code(s): 443833680
[2020-09-24] MEDS: SODIUM CHLORIDE 0.9% 1,000 ML IV SCH ×3 (11:21→23:09)
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
[2020-09-24] MEDS: ATORVASTATIN 40 MG TAB PO SCH (21:11)
[2020-09-24] MEDS: HYDROmorphone 0.5 MG/0.5 ML SYRINGE IVP PRN (23:34)
--- NOTE | 2020-09-24 23:59 | PN ---
PROGRESS NOTE DATE OF SERVICE: 09/24/2020. REASON FOR FOLLOWUP: Bilateral gluteal pressure ulcer and sacral pressure ulcer. INTERVAL HISTORY: Patient is afebrile. He is breathing comfortably. Denies having any chest pain. No shortness of breath or cough. No abdominal pain. No vomiting or diarrhea. PHYSICAL EXAMINATION: Blood pressure 124/76, pulse of 90. Temperature 99.6. He is 96% on room air. General description is a middle-aged male lying in bed in no distress. Respiratory system: Unlabored breathing, clear to auscultation anteriorly. Heart is S1, S2. Regular rate and rhythm. Abdomen soft, no tenderness. Wounds are currently dressed. No drainage on the dressing. LABS: Hemoglobin is 7.9, white count 9.9, BUN of 20, creatinine 1.06. Blood culture has been negative. DIAGNOSTIC IMPRESSION AND PLAN: 1. Patient with right gluteal pressure ulcer with osteomyelitis for which the patient received more than 10 weeks of IV antibiotic therapy. The patient did have overall improvement of his wound and no need for antibiotic on discharge. 2. Patient with left gluteal pressure ulcer status post debridement with no evidence of any purulence or bony exposure. Recommend local wound care. MMODL / IJN: [id number] /
[2020-09-25] MEDS: HYDROcodone/APAP 10-325MG 1 EACH TAB PO PRN ×2 (05:40→14:49)
[2020-09-25] MEDS: AMPICILLIN-SULBACTAM 3 GM in SODIUM CHLORIDE 0.9% 100 ML IVPB SCH ×4 (05:43→23:35)
[2020-09-25 05:52] LABS: Basophils % (A) 0 %; Eosinophils # (A) 0.2 k/uL (0-0.7); Eosinophils % (A) 2 %; HCT 23.7 % (39.0-53.0); HGB 7.5 gm/dL (13.0-17.5); Hypochromasia Slight; Lymphocytes # (A) 1.5 k/uL (1.0-4.8); Lymphocytes % (A) 18 %; MCH 27.4 pg (25.0-35.0); MCHC 31.7 g/dL (31.0-37.0); MCV 86.7 fL (80.0-100.0); Mean Platelet Volume 6.9; Monocytes # (A) 0.3 k/uL (0-1.0); Monocytes % (A) 4 %; Neutrophils # (A) 5.9 k/uL (1.3-7.7); Neutrophils % (A) 74 %; Platelet Count 552 k/uL (150-450); RBC 2.74 m/uL (4.30-5.90); RDW 15.8 % (11.5-15.5); WBC 7.9 k/uL (3.8-10.6)
[2020-09-25] MEDS: ASPIRIN 81 MG PO SCH (08:28)
[2020-09-25] MEDS: tiZANidine 4 MG TAB PO SCH ×2 (08:28→21:21)
[2020-09-25] MEDS: METOPROLOL TARTRATE 25 MG TAB PO SCH ×2 (08:29→21:21)
[2020-09-25] MEDS: BACLOFEN 10 MG TAB PO SCH ×4 (08:29→21:21)
[2020-09-25] MEDS: diazePAM 5 MG TAB PO SCH ×4 (08:29→21:21)
[2020-09-25] MEDS: PANTOPRAZOLE 40 MG TABLET PO SCH (08:30)
[2020-09-25] MEDS: HEPARIN SODIUM,PORCINE/PF 5,000 UNIT/0.5 ML SYRINGE SQ SCH ×2 (08:30→21:21)
[2020-09-25 10:09] LABS: African American GFR (CKD) 109.5 (60.0-200.0); Anion Gap 8.3 mmol/L (4.00-12.00); BUN/Creat Ratio 22.22 Ratio (12.00-20.00); Carbon Dioxide 26.7 mmol/L (21.6-31.8); Non-African American GFR(CKD) 94.5 (60.0-200.0)
[2020-09-25] MEDS ORDERED: VANCOMYCIN TROUGH DUE 1 EACH MISC MISCELLANE ONE (13:00)
[2020-09-25] MEDS: VANCOMYCIN 1,250 MG in SODIUM CHLORIDE 0.9% 250 ML IVPB SCH (14:49)
[2020-09-25] MEDS: ATORVASTATIN 40 MG TAB PO SCH (21:21)
[2020-09-25] MEDS: SODIUM CHLORIDE 0.9% 1,000 ML IV SCH (23:32)
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
[2020-09-26] MEDS: HYDROcodone/APAP 10-325MG 1 EACH TAB PO PRN ×3 (02:17→17:19)
[2020-09-26] MEDS: AMPICILLIN-SULBACTAM 3 GM in SODIUM CHLORIDE 0.9% 100 ML IVPB SCH ×3 (05:04→17:17)
[2020-09-26] MEDS: VANCOMYCIN 1,250 MG in SODIUM CHLORIDE 0.9% 250 ML IVPB SCH ×2 (05:44→21:17)
--- NOTE | 2020-09-26 05:48 | PN ---
PROGRESS NOTE DATE OF SERVICE: 09/25/2020 REASON FOR FOLLOW UP: Bilateral gluteal pressure ulcer. INTERIM HISTORY: Patient is afebrile. The patient is breathing comfortably. Patient denies having any chest pain, shortness of breath, cough, no abdominal pain, no diarrhea. No pain to the right BKA stump. PHYSICAL EXAMINATION: Blood pressure 152/80 with a pulse of 90, temperature 98.9. He is 97% on room air. General description: The patient is a middle-aged male up in the bed in no distress. Respiratory system: Unlabored breathing, decreased intensity of breath sounds. No wheeze. HEART: S1, S2. Regular rate and rhythm. ABDOMEN: Soft, no tenderness. Right BKA stump is currently dressed. No drainage on the dressing. LABS: Hemoglobin is 7.5, white count 7.9, BUN of 20, creatinine 0.9. DIAGNOSTIC IMPRESSION AND PLAN: 1. Patient with right gluteal pressure ulcer stage IV for which the patient received more than 10 weeks of IV antibiotic therapy. No need to continue antibiotic for his right gluteal pressure ulcer. Local care with wound VAC. 2. Left gluteal pressure ulcer status post debridement with no evidence of any purulent infection or bone exposure, treatment will be local wound care. PICC line can be safely discontinued on discharge. MMODL / IJN: [id number] /
[2020-09-26] MEDS: HEPARIN SODIUM,PORCINE/PF 5,000 UNIT/0.5 ML SYRINGE SQ SCH ×2 (09:34→21:17)
[2020-09-26] MEDS: ASPIRIN 81 MG PO SCH (09:35)
[2020-09-26] MEDS: METOPROLOL TARTRATE 25 MG TAB PO SCH ×2 (09:35→21:16)
[2020-09-26] MEDS: tiZANidine 4 MG TAB PO SCH ×2 (09:35→21:17)
[2020-09-26] MEDS: BACLOFEN 10 MG TAB PO SCH ×4 (09:35→21:16)
[2020-09-26] MEDS: PANTOPRAZOLE 40 MG TABLET PO SCH (09:35)
[2020-09-26] MEDS: diazePAM 5 MG TAB PO SCH ×4 (09:35→21:16)
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
[2020-09-26 10:40] LABS: African American GFR (CKD) >90 (>60 ml/min/1.73 sqM); Anion Gap 8 mmol/L; Blood Urea Nitrogen 17 mg/dL (9-20); Calcium 8.3 mg/dL (8.4-10.2); Carbon Dioxide 28 mmol/L (22-30); Chloride 104 mmol/L (98-107); Glucose 139 mg/dL (74-99); Non-African American GFR(CKD) 83 (>60 ml/min/1.73 sqM); Potassium 4.5 mmol/L (3.5-5.1); Sodium 140 mmol/L (137-145)
[2020-09-26 11:30] LABS: HCT 27.3 % (39.0-53.0); HGB 8.2 gm/dL (13.0-17.5); Hypochromasia Marked; MCH 27.8 pg (25.0-35.0); MCHC 30.2 g/dL (31.0-37.0); Mean Platelet Volume 7.2; Platelet Count 528 k/uL (150-450); RBC 2.96 m/uL (4.30-5.90); RDW 15.7 % (11.5-15.5); WBC 11.2 k/uL (3.8-10.6)
[2020-09-26 11:37] LABS: MCV 92.1 fL (80.0-100.0)
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
[2020-09-26] MEDS: SODIUM CHLORIDE 0.9% 1,000 ML IV SCH ×2 (16:53→22:56)
--- NOTE | 2020-09-26 19:46 | PN ---
PROGRESS NOTE DATE OF SERVICE: 09/26/2020 REASON FOR FOLLOWUP: Bilateral gluteal pressure ulcer and cellulitis. INTERVAL HISTORY: Patient is afebrile. The patient is breathing comfortably. Patient denies having any chest pain, shortness of breath or cough. No nausea, no vomiting. No abdominal pain. No diarrhea. PHYSICAL EXAMINATION: Blood pressure 101/60 with a pulse of 81, temperature 99. He is 96% on room air. General description is a middle-aged male lying in no distress. Respiratory system: Unlabored breathing, decreased breath sounds at bases. No wheeze. HEART: S1, S2. Regular rate and rhythm. ABDOMEN soft. No tenderness. LAB: Hemoglobin 8.1, white count 11.2, BUN of 17, creatinine 1.0. DIAGNOSTIC IMPRESSION AND PLAN: 1. Patient with right gluteal pressure ulcer, infected in this patient who has completed his IV antibiotic therapy. 2. Patient with left gluteal pressure ulcer status post debridement. No evidence of any cellulitis or osteomyelitis. Antibiotic can be discontinued on discharge. Local care to continue as ordered. MMODL / IJN: [id number] /
[2020-09-26] MEDS: ATORVASTATIN 40 MG TAB PO SCH (21:17)
[2020-09-26] MEDS: HYDROmorphone 0.5 MG/0.5 ML SYRINGE IVP PRN (21:40)
[2020-09-27] MEDS: AMPICILLIN-SULBACTAM 3 GM in SODIUM CHLORIDE 0.9% 100 ML IVPB SCH ×3 (00:42→13:12)
[2020-09-27] MEDS: HYDROcodone/APAP 10-325MG 1 EACH TAB PO PRN ×2 (00:44→08:46)
[2020-09-27 04:39] VITALS: BP 142/73; PULSE 89; RESP 16
[2020-09-27 04:43] LABS: African American GFR (CKD) >90 (>60 ml/min/1.73 sqM); Non-African American GFR(CKD) 81 (>60 ml/min/1.73 sqM)
[2020-09-27 06:19] VITALS: TEMP 99.3
[2020-09-27] MEDS: PANTOPRAZOLE 40 MG TABLET PO SCH (08:47)
[2020-09-27] MEDS: METOPROLOL TARTRATE 25 MG TAB PO SCH (08:47)
[2020-09-27] MEDS: BACLOFEN 10 MG TAB PO SCH (08:47)
[2020-09-27] MEDS: diazePAM 5 MG TAB PO SCH (08:47)
[2020-09-27] MEDS: HEPARIN SODIUM,PORCINE/PF 5,000 UNIT/0.5 ML SYRINGE SQ SCH ×2 (08:47→08:50)
[2020-09-27] MEDS: tiZANidine 4 MG TAB PO SCH (08:47)
[2020-09-27] MEDS: ASPIRIN 81 MG PO SCH (08:47)
[2020-09-27] MEDS: SODIUM CHLORIDE 0.9% 1,000 ML IV SCH (13:12)
--- NOTE | 2020-09-27 13:39 | P.PN ---
Progress Note - Text Progress Note Date: 09/27/20 REASON FOR FOLLOWUP: Bilateral gluteal pressure ulcer and cellulitis. INTERVAL HISTORY: Patient remains to be afebrile. The patient is breathing comfortably. Patient denies having any chest pain, shortness of breath or cough. The patient denies nausea, no vomiting. No abdominal pain. No diarrhea. PHYSICAL EXAMINATION: Blood pressure 110/60 with a pulse of 80, temperature 98 degrees Fahrenheit. He is 96% on room air. General description is a middle-aged male lying in no distress. Respiratory system: Unlabored breathing, decreased breath sounds at bases. No wheeze. HEART: S1, S2. Regular rate and rhythm. ABDOMEN soft. No tenderness. LAB: Reviewed DIAGNOSTIC IMPRESSION AND PLAN: 1. Patient with right gluteal pressure ulcer, infected in this patient who has completed more than 10 weeks of IV antibiotic therapy. 2. Patient with left gluteal pressure ulcer status post debridement. No evidence of any cellulitis or osteomyelitis. No need for Antibiotic on discharge. Local care to continue as ordered.
[2020-09-28] MEDS ORDERED: VANCOMYCIN TROUGH DUE 1 EACH MISC MISCELLANE ONE (05:00)
== END 2020-09-27 14:04 | disposition home health service (06) | DRG 239 ==
LOC: OR 15:23 → 5NMEDONC 19:14
PROVIDERS: ADMIT Family Medicine; ATTEND Family Medicine
PROC: 0Y6C0Z3 Detachment at Right Upper Leg, Low, Open Approach (ICD-10-PCS; principal; 2020-09-18)
PROC: 0KBP0ZZ Excision of Left Hip Muscle, Open Approach (ICD-10-PCS; 2020-09-22)
DX: I70.201 Unspecified atherosclerosis of native arteries of extremities, right leg (principal); L89.154 Pressure ulcer of sacral region, stage 4; L89.314 Pressure ulcer of right buttock, stage 4; L89.323 Pressure ulcer of left buttock, stage 3; S82.109A Unspecified fracture of upper end of unspecified tibia, initial encounter for closed fracture; D62 Acute posthemorrhagic anemia; E44.1 Mild protein-calorie malnutrition; G82.20 Paraplegia, unspecified; I96 Gangrene, not elsewhere classified; L03.317 Cellulitis of buttock; Z87.891 Personal history of nicotine dependence; I10 Essential (primary) hypertension; Z68.32 Body mass index [BMI] 32.0-32.9, adult; E78.5 Hyperlipidemia, unspecified; E83.51 Hypocalcemia; F43.20 Adjustment disorder, unspecified; F32.9 Major depressive disorder, single episode, unspecified; F41.9 Anxiety disorder, unspecified; G54.6 Phantom limb syndrome with pain; H91.90 Unspecified hearing loss, unspecified ear; Z20.822 Contact with and (suspected) exposure to COVID-19; N31.9 Neuromuscular dysfunction of bladder, unspecified; R29.6 Repeated falls; S00-T88 Injury, poisoning and certain other consequences of external causes; X95.9XXS Assault by unspecified firearm discharge, sequela; S82.409A Unspecified fracture of shaft of unspecified fibula, initial encounter for closed fracture; Z79.82 Long term (current) use of aspirin; Z79.899 Other long term (current) drug therapy; Z80.7 Family history of other malignant neoplasms of lymphoid, hematopoietic and related tissues; Z82.49 Family history of ischemic heart disease and other diseases of the circulatory system; Z83.3 Family history of diabetes mellitus; Z86.14 Personal history of Methicillin resistant Staphylococcus aureus infection; Z89.612 Acquired absence of left leg above knee; Z99.3 Dependence on wheelchair; H93.19 Tinnitus, unspecified ear; Z88.6 Allergy status to analgesic agent; Z88.8 Allergy status to other drugs, medicaments and biological substances; Z86.74 Personal history of sudden cardiac arrest; Z63.5 Disruption of family by separation and divorce; Z98.890 Other specified postprocedural states
CPT/HCPCS: 71045; 80048; 80053; 80202; 81001; 82565; 83735; 85025; 85027; 85610; 85652; 85730; 86140; 86850; 86900; 86901; 86920; 87040; 87635; 99285

== ENCOUNTER 2021-05-10 17:56 | Inpatient (IN) | payer MEDICARE, OTHER ==
[2021-05-10 18:14] LABS: Glucose,Whole Blood 138 mg/dL (75-99)
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
[2021-05-10 18:22] LABS: Anisocytosis Slight; Basophils # (A) 0.1 k/uL (0-0.2); Basophils % (A) 1 %; Eosinophils # (A) 0.2 k/uL (0-0.7); Eosinophils % (A) 1 %; HCT 43.7 % (39.0-53.0); HGB 13.5 gm/dL (13.0-17.5); Hypochromasia Marked; Lymphocytes # (A) 3.5 k/uL (1.0-4.8); Lymphocytes % (A) 15 %; MCH 28.4 pg (25.0-35.0); MCV 91.8 fL (80.0-100.0); Mean Platelet Volume 7.8; Monocytes # (A) 0.9 k/uL (0-1.0); Monocytes % (A) 4 %; Neutrophils # (A) 18.3 k/uL (1.3-7.7); Neutrophils % (A) 79 %; Platelet Count 515 k/uL (150-450); RBC 4.76 m/uL (4.30-5.90); RDW 17.2 % (11.5-15.5); WBC 23.2 k/uL (3.8-10.6)
[2021-05-10 18:33] LABS: Albumin 4.6 g/dL (3.5-5.0); Calcium 9.9 mg/dL (8.4-10.2); Magnesium 2.3 mg/dL (1.6-2.3); Total Bilirubin 0.6 mg/dL (0.2-1.3); Total Protein 9.8 g/dL (6.3-8.2)
[2021-05-10 18:35] LABS: INR 0.9 (<1.2); Prothrombin Time 10.4 sec (9.0-12.0)
[2021-05-10 18:36] LABS: Partial Thromboplastin Time 24.4 sec (22.0-30.0)
[2021-05-10] MEDS ORDERED: ONDANSETRON 4 MG/2 ML VIAL IVP STA (19:00)
[2021-05-10] MEDS ORDERED: SODIUM CHLORIDE 0.9% 1,000 ML IV STA (19:00)
[2021-05-10] MEDS ORDERED: MORPHINE SULFATE 4 MG/ML SYRINGE IV STA (19:00)
--- NOTE | 2021-05-10 19:23 | CT ---
EXAMINATION TYPE: CT brain abelino wo con DATE OF EXAM: 05/10/2021 COMPARISON: None HISTORY: unresponsive, possible seizure TECHNIQUE: CT scan of the head and cervical spine performed without contrast CT DLP: 1380.9 mGycm Automated exposure control for dose reduction was used. FINDINGS: No acute intracranial hemorrhage, midline shift or mass effect appreciated. The peacock-white matter differentiation is preserved.Incidental cavum of septum pellucidum. Mild dense appearance to the left MCA. Prominent ventricles and CSF spaces likely on the basis of volume atrophy. A patchy low-attenuation in the deep white matter periventricular region likely on the basis of chron ic microvascular ischemic changes. Atherosclerotic calcifications are seen in the intracranial internal carotid arteries and vertebral a rteries. No acute intraorbital, osseous or soft tissue abnormalities seen. Paranasal sinuses and mastoid air cells are within normal limits. No acute abnormality seen at the craniocervical junction. 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 Vertebral body heights are within normal limit. No acute posterior element abnormality. Multilevel mild to moderate narrowing of the intervertebral spaces and uncovertebral facet joint arth ropathy in addition to facet joint arthropathy changes. No bony spinal canal stenosis. No significant soft tissue abnormalities appreciated. Airways are symmetric in appearance. No significant cervical lymphadenopathy. The thyroid gland is prominent in size. Included lung apices are within normal limit. IMPRESSION: 1. NONSPECIFIC DENSE LEFT MCA SIGN, CORRELATION WITH SYMPTOMATOLOGY RECOMMENDED. OBTAIN CT ANGIOGRAM OF THE HEAD CLINICALLY INDICATED. 2. NO ACUTE INTRACRANIAL HEMORRHAGE, MIDLINE SHIFT OR MASS EFFECT. 3. NO DEFINITE ACUTE FRACTURE OR DISLOCATION IN THE CERVICAL SPINE. FINDINGS DESCRIBED IN BODY OF REP ORT INVOLVING C1 LIKELY REMOTE/CONGENITAL. 4. INTRACRANIAL AND CERVICAL SPINE FINDINGS DESCRIBED IN BODY OF REPORT, LIKELY CHRONIC.
--- NOTE | 2021-05-10 19:42 | XR ---
EXAMINATION TYPE: XR pelvis AP view DATE OF EXAM: 05/10/2021 COMPARISON: 07/05/2020 HISTORY: 60 years Male. STUDY INDICATION GIVEN: fall . TECHNIQUE: Frontal pelvic radiograph IMPRESSION: Osteopenic changes limit evaluation for nondisplaced fracture. Somewhat suboptimal technique/patient x-ray penetration. No acutely dislocated fractures appreciated within the included pelvic structures. Radiopaque vanita project over the right proximal femur/right hip joint, were not seen on prior stud y. Correlation with surgical/procedural history recommended. Moderate amount stool and gas seen in the colon which partially obscures visualization of the sacroil iac joints in the lower lumbar spine. Mild degenerative changes are noted in the lumbar spine and at the pubic symphysis. Arthritic changes are seen in both hip joints, greater on the right. Oval-shaped density in the region of the urinary bladder be reflective of recent contrast administrat ion and contrast pooling in the urinary bladder, the appearance somewhat similar to the prior study. Multiple phleboliths are seen in the pelvis.Vascular calcifications are seen in the bilateral left gr eater than right lower extremities
--- NOTE | 2021-05-10 19:44 | XR ---
EXAMINATION TYPE: XR chest 1V portable DATE OF EXAM: 05/10/2021 COMPARISON: 09/18/2020 HISTORY: 60 years Male. STUDY INDICATION GIVEN: fall . TECHNIQUE: AP supine chest radiograph IMPRESSION: Prominent interstitial opacities likely related spine technique. No focal airspace opacity, pneumothorax or pleural effusion appreciated. Stable appearance of radiopaque foreign bodies over the left peripheral aspect and right medial aspec t of the lung. Normal cardiomediastinal silhouette appears attenuated secondary to AP technique. No acute osseous abnormalities are appreciated.
[2021-05-10 20:45] LABS: Amphetamine Screen,Urine Not Detected (NotDetected); Barbiturate Screen,Urine Not Detected (NotDetected); Benzodiazepines Screen,Urine Detected (NotDetected); Cocaine Screen,Urine Not Detected (NotDetected); Methadone Screen, Urine Not Detected (NotDetected); Opiate Screen,Urine Detected (NotDetected); Oxycodone Screen, Urine Not Detected (NotDetected); Phencyclidine Screen,Urine Not Detected (NotDetected); Tricyclic Antidepressant,Urine Not Detected (NotDetected); Urn Cannabinoid Scrn Detected (NotDetected)
--- NOTE | 2021-05-10 21:17 | CT ---
EXAMINATION TYPE: CT angio head neck DATE OF EXAM: 05/10/2021 HISTORY: ams COMPARISON: CT brain without contrast dated 05/10/2021 CT DLP: 604.7 mGycm. Automated Exposure Control for Dose Reduction was Utilized. TECHNIQUE: CTA scan of the neck is performed with IV Contrast, patient injected with 65cc mL of Isov ue 370, axial images are obtained, coronal and sagittal reformatted images are reviewed. 3D reconstru cted images are created on an independent workstation and reviewed. FINDINGS: Atherosclerotic calcifications are seen in the arch of the aorta. There is mild to moderate narrowing of the bilateral carotid bifurcation secondary to calcific and so ft plaque. The internal carotid artery faintly opacifies proximally after the origin. Distally within the neck a nd extending to the right carotid terminus there is near complete occlusion of the right internal car otid artery. There is mild narrowing of the origin of the left internal carotid artery secondary to s oft and calcific plaque. Calcific plaques are seen at the origin of both vertebral arteries which are patent throughout their course. There is normal opacification of the M1 segments of both MCAs. The right MCA reconstitutes normally l ikely from the left-sided circulation. Both ACAs and intrusion analyst are patent proximally. The basilar artery i s proximal. The venous structures of the brain are grossly patent. No aneurysm or dissection is appreciated. IMPRESSION: 1. Described finding on the noncontrast CT head from the same day likely artifactual, no MCA M1 segme nt occlusion bilaterally. 2. 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 3. Mild to moderate bilateral carotid bifurcation narrowing as described above. 4. Additional findings as described above. NASCET criteria was used in interpretation of this exam?
[2021-05-10] MEDS ORDERED: NALOXONE 0.4 MG/ML 1 ML VIAL IV PRN (21:30)
[2021-05-10] MEDS ORDERED: ACETAMINOPHEN TAB 325 MG TAB PO PRN (21:30)
[2021-05-10] MEDS ORDERED: LORazepam 2 MG/ML INJ IV PRN (21:33)
[2021-05-11] MEDS: SODIUM CHLORIDE 0.9% 1,000 ML IV SCH ×2 (00:21→21:28)
[2021-05-11] MEDS ORDERED: HYDROcodone/APAP 10-325MG 1 EACH TAB PO PRN (08:47)
[2021-05-11] MEDS: ASPIRIN 81 MG PO SCH (12:32)
[2021-05-11] MEDS: tiZANidine 4 MG TAB PO SCH ×2 (12:33→20:18)
[2021-05-11] MEDS: BACLOFEN 10 MG TAB PO SCH ×4 (12:33→21:20)
[2021-05-11] MEDS: diazePAM 5 MG TAB PO SCH ×4 (12:35→21:20)
[2021-05-11] MEDS: METOPROLOL TARTRATE 25 MG TAB PO SCH ×2 (12:36→20:18)
--- NOTE | 2021-05-11 16:44 | EEG ---
ELECTROENCEPHALOGRAM REPORT DATE OF SERVICE: 05/11/2021 PREAMBLE: This is a 60-year-old male with new-onset seizure. EEG FINDINGS: This is a 21-channel digital EEG recorded with video component, utilizing 10/20 international system with referential and bipolar montages. Background consists of well developed, well regulated, predominantly low-voltage fast frequency beta activity seen in bihemispheric region. Background is posterior-dominant and seems to be reactive to eye opening and closing. Intermittent, more well-formed 9 hertz posterior- dominant alpha activity was seen. Photic driving response was not seen. Different stages of sleep were not seen. No focal or generalized epileptiform activity was seen. EKG channel showed no obvious arrhythmia. IMPRESSION: This is a minimally abnormal EEG due to presence of excessive amount of low-voltage fast frequency beta activity. This is suggestive of benzodiazepine effect. No epileptiform activity was seen. MMTOBYL / IJN: [id number] /
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
[2021-05-11] MEDS ORDERED: ATORVASTATIN 40 MG TAB PO SCH (21:00)
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
[2021-05-12] MEDS: diazePAM 5 MG TAB PO SCH ×2 (09:02→12:30)
[2021-05-12] MEDS: ASPIRIN 81 MG PO SCH (09:03)
[2021-05-12] MEDS: BACLOFEN 10 MG TAB PO SCH ×2 (09:03→12:30)
[2021-05-12] MEDS: METOPROLOL TARTRATE 25 MG TAB PO SCH (09:03)
[2021-05-12] MEDS: tiZANidine 4 MG TAB PO SCH (09:03)
[2021-05-12 11:18] LABS: Chol/HDL Ratio 3.11 Ratio; LDL Cholesterol,Calculated 84.4 mg/dL (0.0-131.0); VLDL Calculation 16.04 mg/dL (5.00-40.00)
[2021-05-12 11:22] VITALS: BP 136/82; PULSE 84; RESP 16; TEMP 98
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
== END 2021-05-12 14:45 | disposition home health service (06) | DRG 896 ==
LOC: EC 17:56 → 3SCARD 21:30
PROVIDERS: ADMIT Family Medicine; ATTEND Family Medicine
PROC: 4A10X4Z Monitoring of Central Nervous Electrical Activity, External Approach (ICD-10-PCS; principal; 2021-05-11)
DX: F13.239 Sedative, hypnotic or anxiolytic dependence with withdrawal, unspecified (principal); L89.154 Pressure ulcer of sacral region, stage 4; E87.2 Acidosis; G82.20 Paraplegia, unspecified; Z16.24 Resistance to multiple antibiotics; I67.4 Hypertensive encephalopathy; G40.409 Other generalized epilepsy and epileptic syndromes, not intractable, without status epilepticus; D64.9 Anemia, unspecified; D72.829 Elevated white blood cell count, unspecified; E78.5 Hyperlipidemia, unspecified; F12.90 Cannabis use, unspecified, uncomplicated; F32.A Depression, unspecified; F41.9 Anxiety disorder, unspecified; G89.4 Chronic pain syndrome; H93.13 Tinnitus, bilateral; I65.21 Occlusion and stenosis of right carotid artery; H91.90 Unspecified hearing loss, unspecified ear; I10 Essential (primary) hypertension; Z80.7 Family history of other malignant neoplasms of lymphoid, hematopoietic and related tissues; Z79.899 Other long term (current) drug therapy; Z79.82 Long term (current) use of aspirin; Z53.20 Procedure and treatment not carried out because of patient's decision for unspecified reasons; S00.01XA Abrasion of scalp, initial encounter; Z89.612 Acquired absence of left leg above knee; Z89.611 Acquired absence of right leg above knee; Z89.519 Acquired absence of unspecified leg below knee; Z87.891 Personal history of nicotine dependence; Z83.3 Family history of diabetes mellitus; Z82.49 Family history of ischemic heart disease and other diseases of the circulatory system; L98.429 Non-pressure chronic ulcer of back with unspecified severity; R56.9 Unspecified convulsions; T42.4X5A Adverse effect of benzodiazepines, initial encounter; Y92.9 Unspecified place or not applicable; I73.9 Peripheral vascular disease, unspecified
CPT/HCPCS: 36415; 70450; 70496; 70498; 71045; 72125; 72170; 80053; 80061; 80306; 83036; 83605; 83735; 85025; 85610; 85730; 93005; 95816; 96361; 96374; 96375; 99285

== ENCOUNTER → 2022-12-26 | Outpatient (CLI) | payer MEDICARE, OTHER ==
[2022-12-26 11:13] VITALS: BP 162/79; PULSE 79; RESP 15; TEMP 98.2
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
== END ==
LOC: PNWHC3 10:33
PROVIDERS: ATTEND Specialist
DX: M51.34 Other intervertebral disc degeneration, thoracic region (principal); G82.20 Paraplegia, unspecified; S24.103A Unspecified injury at T7-T10 level of thoracic spinal cord, initial encounter; M54.9 Dorsalgia, unspecified; F17.200 Nicotine dependence, unspecified, uncomplicated; M19.90 Unspecified osteoarthritis, unspecified site; E78.5 Hyperlipidemia, unspecified; I10 Essential (primary) hypertension; F41.9 Anxiety disorder, unspecified; F32.9 Major depressive disorder, single episode, unspecified; I73.9 Peripheral vascular disease, unspecified; G89.29 Other chronic pain; Z79.82 Long term (current) use of aspirin; Z88.8 Allergy status to other drugs, medicaments and biological substances; Z79.899 Other long term (current) drug therapy
CPT/HCPCS: 99211

== ENCOUNTER → 2023-03-20 | Outpatient (CLI) | payer MEDICARE, OTHER ==
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
[2023-03-20 11:29] VITALS: BP 220/129; PULSE 111; RESP 16; TEMP 97.1
== END ==
LOC: PNWHC3 10:55
PROVIDERS: ATTEND Specialist
DX: M51.34 Other intervertebral disc degeneration, thoracic region (principal); I10 Essential (primary) hypertension; E78.5 Hyperlipidemia, unspecified; F32.9 Major depressive disorder, single episode, unspecified; F41.9 Anxiety disorder, unspecified; M19.90 Unspecified osteoarthritis, unspecified site; Z87.891 Personal history of nicotine dependence; Z79.82 Long term (current) use of aspirin; Z88.6 Allergy status to analgesic agent
CPT/HCPCS: 99211